=== PATIENT | male | born 1955 | race Caucasian/White ===

== ENCOUNTER → 2016-12-10 | Outpatient (REF) | payer OTHER ==
[~2016-12-10] MED LIST: AMLO10TA OR; IBUP600T PO; LOPR50TA OR; METOPROLOL TARTRATE PO; TRAM50TA2 PO
[2016-12-10 12:43] LABS: ALBUMIN 3.7 GM/DL (3.2-5.2); ANION GAP 7 MEQ/L (8-16); BLOOD UREA NITROGEN 7 MG/DL (7-18); CALCIUM LEVEL 9.1 MG/DL (8.5-10.1); CARBON DIOXIDE LEVEL 27 MEQ/L (21-32); CHLORIDE LEVEL 103 MEQ/L (98-107); CREATININE FOR GFR 0.75 MG/DL (0.70-1.30); GLOMERULAR FILTRATION RATE > 60.0 (>56); GLUCOSE, FASTING 95 MG/DL (70-105); PHOSPHORUS LEVEL 3.5 MG/DL (2.5-4.9); POTASSIUM SERUM 4.3 MEQ/L (3.5-5.1); SODIUM LEVEL 137 MEQ/L (136-145)
== END ==
LOC: M SFHCPLAZ 09:50
PROVIDERS: ATTEND Family Medicine
DX: R29.90 Unspecified symptoms and signs involving the nervous system (principal)

== ENCOUNTER → 2016-12-11 | Outpatient (CLI) | payer OTHER ==
--- NOTE | 2016-12-11 12:01 | REP ---
MR BRAIN WITHOUT CONTRAST: HISTORY: Facial droop. COMPARISON: CT 02/12/2016. Scattered punctate areas of increased signal intensity on T2-weighted images are present in the periventricular and subcortical white matter. This represents small vessel ischemic disease. There is no intraparenchymal hemorrhage, infarct, mass, or midline shift. The ventricular system and cortical sulci are dilated, consistent with mild volume loss. There is no extracerebral collection. The sinuses are clear. 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 IMPRESSION: 1. Minimal small vessel ischemic disease. 2. Mild volume loss. Signed by Jw Brambila MD 12/11/2016 12:05 P
== END ==
LOC: M RAD 09:37
PROVIDERS: ATTEND Family Medicine
DX: I67.82 Cerebral ischemia (principal); G31.9 Degenerative disease of nervous system, unspecified; R42 Dizziness and giddiness; R48.1 Agnosia; Z87.820 Personal history of traumatic brain injury

== ENCOUNTER → 2017-04-01 | Outpatient (CLI) | payer OTHER ==
[~2017-04-01] MED LIST changes: +ALBU17IN INH; +AMLO5TAB2 PO; +ASPI1TAB PO; +ATOR80TA59 PO; +CETI10TA PO; +GABA-283 PO; +LISI-538 PO; +MECL12.575 PO; +MELO7.5T7 PO; +MIRA33504 PO; +SING10TA32 PO; +ZONI25CA2 PO
== END ==
LOC: M WUC 12:45
PROVIDERS: ATTEND Family Medicine
DX: Z13.1 Encounter for screening for diabetes mellitus (principal)

== ENCOUNTER → 2017-05-12 | Outpatient (CLI) | payer OTHER ==
[~2017-05-12] MED LIST changes: +ISOVUE-370 76% 100ML VIAL (Q9967) As Ordered ONE
--- NOTE | 2017-05-12 16:52 | REP ---
CT ANGIOGRAM OF ABDOMINAL AORTA AND BILATERAL LOWER EXTREMITIES: CT angiogram abdominal aorta and bilateral lower extremities are performed following the intravenous administration of 100 mL of Isovue-370. Sagittal, coronal and 3-D reconstruction images are performed. Mild interstitial fibrotic changes are seen in the visualized lung bases. There are a few liver cysts present There appears to be a any cyst in the lower pole of the right kidney. There is no hydronephrosis. There is no adenopathy. There is no free air or free fluid. There is mild sigmoid diverticulosis. There is no pelvic mass seen. Moderate diffuse atherosclerotic calcifications are seen of the abdominal aorta. There is mild fusiform aneurysmal dilatation of the distal abdominal aorta with a maximum AP diameter of 3.5 cm. There is mild crescentic thrombus anteriorly in the aneurysm. There is mild narrowing at the origin of all of the mesenteric arteries but no significant narrowing greater than 50%. There is mild to moderate narrowing at the origin of the left renal artery. There is also mild narrowing of the origin of the right renal artery. There are bilateral common iliac stents present. There is patent flow through the right common iliac stent. Moderate narrowing is seen at the origin of the right internal iliac artery. There is moderate calcification along the wall of the right external iliac artery with mild diffuse narrowing. The right common femoral artery demonstrates posterior calcified plaque with mild stenosis. Right profunda is patent. Right superficial femoral artery demonstrates mild diffuse narrowing. Moderate calcific plaque in the mid right superficial femoral artery causes fairly long segment of moderate stenosis. There is mild narrowing at the distal end of the superficial femoral artery and there is mild diffuse narrowing of the right popliteal artery. There appears to be fairly high grade stenosis at the origin of the tibial peroneal trunk. There is mild to moderate stenosis at the origin of the right anterior tibial artery. Diffuse scattered plaquing is seen throughout the trifurcation vessels. There is diffuse mild to moderate thinning of the anterior tibial artery which traverses into the right foot. There is moderate diffuse thinning of the peroneal artery which appears to terminate just above the ankle. The posterior tibial artery demonstrates scattered areas of moderate narrowing and appears to traverse into the left foot with two vessel runoff into the left foot. On the left there is moderate focal stenosis in the mid left common iliac artery caused by calcific plaque. There is moderate diffuse narrowing of the more distal common iliac artery. There is moderate stenosis at the origin of the left internal iliac artery. The left external iliac artery demonstrates mild diffuse plaquing and narrowing. The left common femoral artery demonstrates mild diffuse plaquing and narrowing. Left profunda demonstrates mild narrowing at its origin and is patent. Left superficial femoral artery demonstrates moderate stenosis at its origin. There is scattered atherosclerotic plaquing in the left superficial femoral artery with moderate stenosis in the proximal third focally, another focal stenosis in the mid third of moderate degree and two focal moderate stenoses in the distal third. There is moderate stenosis in the left popliteal artery. Tibial peroneal trunk is patent and mildly narrowed. The left anterior tibial artery demonstrates scattered plaquing and moderate areas of narrowing with diffuse thinning. That vessel does traverse into the left foot. The left peroneal artery demonstrates occlusion in the distal third of the calf with a collateral vessel reconstituting an occluded posterior tibial artery. That reconstituted posterior tibial artery is diffusely moderately thinned but does traverse into the left foot. There is two vessel run off into the left foot. IMPRESSION: Mild fusiform aneurysmal dilatation of the distal abdominal aorta, 3.5 cm in maximum diameter. Mild narrowing of the origin of the mesenteric arteries. Mild to moderate narrowing at the origin of the left renal artery and mild narrowing at the origin of the right renal artery. Bilateral common iliac stents. Mild to moderate stenosis of the right common femoral artery. There are mild to moderate stenoses in the right superficial femoral artery as discussed above. There is high grade stenosis of the right tibial peroneal trunk. There is two vessel runoff into the right foot. On the left there is moderate focal stenosis in the distal common iliac artery distal to the stent. There are multifocal stenoses in the left superficial femoral artery as discussed in detail above. There is focal stenosis in the left popliteal artery. Right posterior tibial artery is occluded proximally but is reconstituted by the peroneal artery. There is two vessel run off into the left foot. Signed by Conrad Luna MD 05/12/2017 05:25 P
== END ==
LOC: M RAD 12:51
PROVIDERS: ATTEND Surgery Vascular Surgery
DX: I70.213 Atherosclerosis of native arteries of extremities with intermittent claudication, bilateral legs (principal); Z95.5 Presence of coronary angioplasty implant and graft
CPT/HCPCS: 75635; Q9967

== ENCOUNTER → 2017-05-12 | Outpatient (CLI) | payer OTHER ==
[~2017-05-12] MED LIST changes: -ISOVUE-370 76% 100ML VIAL (Q9967) As Ordered ONE
--- NOTE | 2017-05-12 13:48 | PFTRPT ---
Tech: Guillermina SMITH RRT Age: 62 Sex: Male Race: Height: 67.00 Inches Weight: 207.00 Lbs BSA: 2.05 Diagnosis: Z87.898 PULMONARY FUNCTION REPORT ORDERING PROVIDER: wJ Kruger DO DATE OF SERVICE: 05/12/17 SPIROMETRY: Pre and post bronchodilator study of excellent technical quality. The forced vital capacity is normal. The FEV1 is out of proportion. The obstructive index is, therefore, reduced. FLOW VOLUME LOOP: The expiratory limb of the flow volume loop is consistent with airflow limitation. No significant bronchodilator response is identified. LUNG VOLUMES: The total lung capacity is mildly elevated. The residual volume is consistent with air trapping. DIFFUSION CAPACITY: The diffusion capacity is normal. HEMOGLOBIN: No hemoglobin is available for correction. AIRWAY MECHANICS: Airways resistance is mildly elevated with a concomitant decrease in airway conductance. IMPRESSION: Mild obstructive ventilatory impairment with underlying air trapping. No significant bronchodilator response. Please correlate clinically. MTDD
== END ==
LOC: M CARPUL 12:46
PROVIDERS: ATTEND Family Medicine
DX: R06.2 Wheezing (principal)

== ENCOUNTER → 2017-05-18 | Outpatient (CLI) | payer OTHER ==
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
== END ==
LOC: M PAIN 13:00
PROVIDERS: ATTEND Nurse Practitioner Family
DX: M54.2 Cervicalgia (principal); M79.1 Myalgia; I10 Essential (primary) hypertension; E78.5 Hyperlipidemia, unspecified; M19.90 Unspecified osteoarthritis, unspecified site; I73.9 Peripheral vascular disease, unspecified; F17.210 Nicotine dependence, cigarettes, uncomplicated; Z79.899 Other long term (current) drug therapy; Z79.82 Long term (current) use of aspirin

== ENCOUNTER → 2017-06-01 | Outpatient (CLI) | payer OTHER ==
--- NOTE | 2017-06-01 15:38 | REP ---
Three-phase bone scan of the ankles and feet. History: Left ankle pain. Question stress fracture. Technique: 22.0 mCi of technetium 99m MDP is injected and standard three-phase imaging of the feet and ankles is acquired. Scintigraphic findings: Anterior and posterior flow study shows mild hyperemia about the left ankle. Immediate blood pool images demonstrate asymmetric soft tissue uptake in and about the left ankle as well as in and about the right first MTP joint and to a lesser extent, the right midfoot. Delayed scan images demonstrate intensely increased uptake in the distal tibia and ankle joint region on the left as well as in the first MTP joint on the right. Mildly increased uptake is seen in the lateral midfoot on the right. Impression: There is a focus of increased uptake involving the left ankle on all three phases of the bone scan consistent with a traumatic or inflammatory or infectious lesion. The distribution of the uptake suggests arthropathy. Similarly, there is a somewhat less prominent focus of increased uptake on blood pool and delayed scan images in the right first MTP joint. Signed by Abbe Anderson MD 06/01/2017 03:45 P
== END ==
LOC: M RAD 09:31
PROVIDERS: ATTEND Orthopaedic Surgery
DX: R93.7 Abnormal findings on diagnostic imaging of other parts of musculoskeletal system (principal)

== ENCOUNTER 2017-06-14 10:44 | Outpatient (RCR) | payer OTHER ==
[~2017-06-14 10:44] MED LIST changes: -ALBU17IN INH; -AMLO5TAB2 PO; -ASPI1TAB PO; -ATOR80TA59 PO; -CETI10TA PO; -GABA-283 PO; -LISI-538 PO; -MECL12.575 PO; -MELO7.5T7 PO; -MIRA33504 PO; -SING10TA32 PO; -ZONI25CA2 PO
[2017-06-17] MEDS ORDERED: ALBU17IN INH (14:24)
[2017-06-17] MEDS ORDERED: LISI-538 PO (14:24)
[2017-06-17] MEDS ORDERED: MELO7.5T7 PO (14:24)
[2017-06-17] MEDS ORDERED: SING10TA32 PO (14:24)
[2017-06-17] MEDS ORDERED: GABA-283 PO (14:24)
[2017-06-17] MEDS ORDERED: MIRA33504 PO (14:24)
[2017-06-17] MEDS ORDERED: ZONI25CA2 PO (14:24)
[2017-06-17] MEDS ORDERED: MECL12.575 PO (14:24)
[2017-06-17] MEDS ORDERED: ATOR80TA59 PO (14:24)
[2017-06-17] MEDS ORDERED: ASPI1TAB PO (14:24)
[2017-06-17] MEDS ORDERED: AMLO5TAB2 PO (14:24)
[2017-06-17] MEDS ORDERED: CETI10TA PO (14:24)
== END 2017-06-19 ==
LOC: M PT 10:44
PROVIDERS: ATTEND Nurse Practitioner Family
DX: Z51.89 Encounter for other specified aftercare (principal); M54.2 Cervicalgia; M25.0 Hemarthrosis; M79.1 Myalgia

== ENCOUNTER 2017-06-18 08:45 | Outpatient (CLI) | payer OTHER ==
[~2017-06-18] VITALS: Ht 170.2 cm; Wt 95.7 kg
[~2017-06-18 08:45] MED LIST changes: +ALBU17IN INH; +AMLO5TAB2 PO; +ASPI1TAB PO; +ATOR80TA59 PO; +CETI10TA PO; +GABA-283 PO; +LISI-538 PO; +MECL12.575 PO; +MELO7.5T7 PO; +MIRA33504 PO; +SING10TA32 PO; +ZONI25CA2 PO
[2017-06-18] MEDS ORDERED: NS 1,000 ML IV ONE (09:00)
[2017-06-18] MEDS ORDERED: PROPOFOL 200 MG/20 ML VIAL As Ordered ONE (11:40)
[2017-06-18] MEDS ORDERED: LIDOCAINE 2% INJ 100 MG/5 ML SDV (FOR ANES.) As Ordered ONE (11:40)
--- NOTE | 2017-06-18 11:45 | ROOR ---
Patient Name: Orlando Payne Procedure Date: 06/18/2017 11:19 AM Date of : 1955 Age: 62 Room: [facility] Gender: Male Note Status: Finalized Procedure: Colonoscopy Indications: Screening for colorectal malignant neoplasm Providers: Perry GREY MD Referring MD: Miguel Angel Solomon MD Requesting Provider: Medicines: Monitored Anesthesia Care Complications: No immediate complications. Procedure: Pre-Anesthesia Assessment: - The heart rate, respiratory rate, oxygen saturations, blood pressure, adequacy of pulmonary ventilation, and response to care were monitored throughout the procedure. The Colonoscope was introduced through the anus and advanced to the cecum, identified by appendiceal orifice and ileocecal valve. The colonoscopy was performed without difficulty. The patient tolerated the procedure well. The quality of the bowel preparation was inadequate. Findings: The perianal and digital rectal examinations were normal. (EXAM: Complete, PREP: Suboptimal) A 5 mm polyp was found in the distal sigmoid colon. The polyp was pedunculated. The polyp was removed with a hot snare. Resection and retrieval were complete. To prevent bleeding after the polypectomy, one hemostatic clip was successfully placed. There was no bleeding at the end of the procedure. The exam was otherwise without abnormality. Impression: - (EXAM: Complete, PREP: Suboptimal) - One 5 mm polyp in the distal sigmoid colon, removed with a hot snare. Resected and retrieved. Clip was placed. - The examination was otherwise normal. Recommendation: - Repeat colonoscopy at the next available appointment because the bowel preparation was suboptimal. - My office will call you to reschedule the procedure. Perry Grey MD Perry GREY MD 06/18/2017 11:45:06 AM This report has been signed electronically. Number of Addenda: 0 Note Initiated On: 06/18/2017 11:19 AM Estimated Blood Loss: Estimated blood loss: none.
[2017-06-18 12:00] VITALS: BP 127/77
== END 2017-06-18 12:10 | disposition home or self-care (01) ==
LOC: M OPP 08:45
PROVIDERS: ATTEND Internal Medicine Gastroenterology
DX: Z12.11 Encounter for screening for malignant neoplasm of colon (principal); D12.5 Benign neoplasm of sigmoid colon; I10 Essential (primary) hypertension; E78.5 Hyperlipidemia, unspecified; I71.4 Abdominal aortic aneurysm, without rupture; I73.9 Peripheral vascular disease, unspecified; M19.90 Unspecified osteoarthritis, unspecified site; M54.2 Cervicalgia; G62.9 Polyneuropathy, unspecified; J44.9 Chronic obstructive pulmonary disease, unspecified; Z87.820 Personal history of traumatic brain injury; R42 Dizziness and giddiness; H54.62 Unqualified visual loss, left eye, normal vision right eye; Z95.828 Presence of other vascular implants and grafts; F17.210 Nicotine dependence, cigarettes, uncomplicated; Z79.82 Long term (current) use of aspirin; Z79.899 Other long term (current) drug therapy

== ENCOUNTER → 2017-07-12 | Outpatient (CLI) | payer OTHER ==
[~2017-07-12] MED LIST changes: +LIDOCAINE 2% INJ 100 MG/5 ML SDV (FOR ANES.) As Ordered ONE; +PROPOFOL 200 MG/20 ML VIAL As Ordered ONE
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
== END ==
LOC: M RAD 10:54
PROVIDERS: ATTEND Nurse Practitioner Family
DX: M50.20 Other cervical disc displacement, unspecified cervical region (principal)

== ENCOUNTER → 2017-08-27 | Outpatient (CLI) | payer OTHER ==
[~2017-08-27] MED LIST changes: -LIDOCAINE 2% INJ 100 MG/5 ML SDV (FOR ANES.) As Ordered ONE; -PROPOFOL 200 MG/20 ML VIAL As Ordered ONE
--- NOTE | 2017-08-27 17:08 | REP ---
CT of the left ankle: Comparison is a plain film study dated 06/29/2006. Axial images are acquired helical scanning and are reformatted sagittal and coronal projections. There are three orthopedic screws across the tibiotalar articulation. There is marked tibiotalar cortical irregularity accompanied by marked joint space narrowing. Findings are compatible with surgical arthrodesis. There is a transverse orthopedic screw across the distal fibula and into the distal tibia. There is focal atrophy of the distal shaft of the fibula. This may have been a bone graft donor site may represent an old healed fracture. There are no lytic, blastic or destructive skeletal changes to suggest osteoarthritis. The subtalar articulation is unremarkable. There are calcaneal and Achilles spurs. Signed by Conrad Flanagan MD 08/27/2017 05:00 P
== END ==
LOC: M RAD 15:48
PROVIDERS: ATTEND Orthopaedic Surgery
DX: M19.172 Post-traumatic osteoarthritis, left ankle and foot (principal); M77.32 Calcaneal spur, left foot

== ENCOUNTER → 2017-10-05 | Outpatient (CLI) | payer OTHER | LOC: M PAIN 14:30 | DX: M54.2 Cervicalgia (principal); M79.1 Myalgia; I10 Essential (primary) hypertension; E78.5 Hyperlipidemia, unspecified; F17.210 Nicotine dependence, cigarettes, uncomplicated; Z79.899 Other long term (current) drug therapy; Z79.891 Long term (current) use of opiate analgesic | CPT/HCPCS: G0463 ==

== ENCOUNTER 2017-10-22 13:51 | Emergency (ER) | payer OTHER ==
[2017-10-22 15:48] LABS: BASO % 0.5 % (0.0-1.0); EOS # 0.1 10^3/uL (0.0-0.50); EOS % 1.5 % (0.0-3.0); HEMATOCRIT 39.9 % (42.0-52.0); HEMOGLOBIN 14.1 g/dl (14.0-18.0); IMMATURE GRANULOCYTE % 0.1 % (0-0); LYMPH # 2.7 10^3/uL (1.5-4.5); MEAN CORPUSCULAR HEMOGLOBIN 33.2 pg (27.0-33.0); MEAN CORPUSCULAR HGB CONC 35.3 g/dl (32.0-36.5); MEAN CORPUSCULAR VOLUME 93.9 fl (80.0-96.0); MONO # 0.8 10^3/uL (0.0-0.8); MONO % 10.8 % (0.0-5.0); NEUTROPHILS # 3.9 10^3/uL (1.8-7.7); NEUTROPHILS % 51.1 % (36.0-66.0); PLATELET COUNT, AUTOMATED 304 10^3/uL (150-450); RED BLOOD COUNT 4.25 10^6/uL (4.30-6.10); RED CELL DISTRIBUTION WIDTH 12.9 % (11.5-14.5); WHITE BLOOD COUNT 7.6 10^3/uL (4.0-10.0)
[2017-10-22] MEDS: NS 1,000 ML IV (15:48)
[2017-10-22] MEDS: MORPHINE 4 MG/ML 1ML SYRINGE IV ×2 (15:48→19:50)
[2017-10-22 16:10] LABS: LACTIC ACID SEPSIS PROTOCOL 1.3 MMOL/L (0.4-2.0)
[2017-10-22 16:12] LABS: ALBUMIN/GLOBULIN RATIO 0.93 (1.00-1.93); ALKALINE PHOSPHATASE 107 U/L (45-117); ALT/SGPT 27 U/L (12-78); ANION GAP 10 MEQ/L (8-16); AST/SGOT 29 U/L (7-37); BILIRUBIN,DIRECT < 0.1 MG/DL (0.0-0.2); BILIRUBIN,TOTAL 0.3 MG/DL (0.2-1.0); BLOOD UREA NITROGEN 6 MG/DL (7-18); CALCIUM LEVEL 9.1 MG/DL (8.8-10.2); CARBON DIOXIDE LEVEL 23 MEQ/L (21-32); CHLORIDE LEVEL 98 MEQ/L (98-107); CREATININE FOR GFR 0.63 MG/DL (0.70-1.30); GLOMERULAR FILTRATION RATE > 60.0 (>49); GLUCOSE, FASTING 89 MG/DL (70-100); POTASSIUM SERUM 4.2 MEQ/L (3.5-5.1); SODIUM LEVEL 131 MEQ/L (136-145); TOTAL PROTEIN 8.3 GM/DL (6.4-8.2)
[2017-10-22] MEDS: PIPERACILLIN/TAZOBACTAM SOD 3.375 GM in APPROPRIATE DILUENT 1 EA IV (17:56)
== END 2017-10-22 19:55 | disposition short-term general hospital (02) ==
LOC: M ED 13:51
DX: L02.415 Cutaneous abscess of right lower limb (principal); T81.4XXA Infection following a procedure, initial encounter; Z79.899 Other long term (current) drug therapy; Z79.82 Long term (current) use of aspirin; Z87.891 Personal history of nicotine dependence
CPT/HCPCS: J2543

== ENCOUNTER → 2017-11-03 | Outpatient (REF) | payer OTHER ==
[2017-11-03 18:50] LABS: HEMATOCRIT 38.2 % (42.0-52.0); HEMOGLOBIN 12.8 g/dl (14.0-18.0); MEAN CORPUSCULAR HEMOGLOBIN 31.9 pg (27.0-33.0); MEAN CORPUSCULAR HGB CONC 33.5 g/dl (32.0-36.5); MEAN CORPUSCULAR VOLUME 95.3 fl (80.0-96.0); PLATELET COUNT, AUTOMATED 371 10^3/uL (150-450); RED BLOOD COUNT 4.01 10^6/uL (4.30-6.10); RED CELL DISTRIBUTION WIDTH 13.1 % (11.5-14.5); WHITE BLOOD COUNT 7.2 10^3/uL (4.0-10.0)
== END ==
LOC: M LAB REF 16:46
DX: L03.115 Cellulitis of right lower limb (principal); D64.9 Anemia, unspecified

== ENCOUNTER → 2017-12-10 | Outpatient (CLI) | payer OTHER | LOC: M PAIN 13:15 | DX: M54.2 Cervicalgia (principal); M79.1 Myalgia; M15.9 Polyosteoarthritis, unspecified; I10 Essential (primary) hypertension; E78.5 Hyperlipidemia, unspecified; I73.9 Peripheral vascular disease, unspecified; F17.210 Nicotine dependence, cigarettes, uncomplicated; Z79.82 Long term (current) use of aspirin; Z79.899 Other long term (current) drug therapy; Z87.820 Personal history of traumatic brain injury | CPT/HCPCS: G0463 ==

== ENCOUNTER 2017-12-22 10:14 | Outpatient (RCR) | payer OTHER | END 2018-01-17 | LOC: M PT 10:14 | DX: Z51.89 Encounter for other specified aftercare (principal); M17.0 Bilateral primary osteoarthritis of knee | CPT/HCPCS: 97110 ==

== ENCOUNTER → 2018-01-07 | Outpatient (CLI) | payer OTHER | LOC: M PAIN 13:45 | DX: G89.29 Other chronic pain (principal); M54.2 Cervicalgia; M79.1 Myalgia; M15.9 Polyosteoarthritis, unspecified; I10 Essential (primary) hypertension; E78.5 Hyperlipidemia, unspecified; I73.9 Peripheral vascular disease, unspecified; J44.9 Chronic obstructive pulmonary disease, unspecified; F17.210 Nicotine dependence, cigarettes, uncomplicated; Z79.82 Long term (current) use of aspirin; Z79.899 Other long term (current) drug therapy | CPT/HCPCS: G0463 ==

== ENCOUNTER → 2018-01-25 | Outpatient (REF) | payer OTHER ==
[2018-01-25 11:48] LABS: HEMATOCRIT 40.7 % (42.0-52.0); HEMOGLOBIN 13.8 g/dl (13.5-17.5); MEAN CORPUSCULAR HEMOGLOBIN 31.5 pg (27.0-33.0); MEAN CORPUSCULAR HGB CONC 33.9 g/dl (32.0-36.5); MEAN CORPUSCULAR VOLUME 92.9 fl (80.0-96.0); PLATELET COUNT, AUTOMATED 333 10^3/uL (150-450); RED BLOOD COUNT 4.38 10^6/uL (4.30-6.10); RED CELL DISTRIBUTION WIDTH 13.8 % (11.5-14.5)
[2018-01-25 12:32] LABS: ANION GAP 8 MEQ/L (8-16); BLOOD UREA NITROGEN 12 MG/DL (7-18); CALCIUM LEVEL 9.5 MG/DL (8.8-10.2); CARBON DIOXIDE LEVEL 25 MEQ/L (21-32); CHLORIDE LEVEL 101 MEQ/L (98-107); CREATININE FOR GFR 0.73 MG/DL (0.70-1.30); GLOMERULAR FILTRATION RATE > 60.0 (>49); GLUCOSE, FASTING 82 MG/DL (70-100); POTASSIUM SERUM 4.7 MEQ/L (3.5-5.1); SODIUM LEVEL 134 MEQ/L (136-145)
== END ==
LOC: M SFHCPLAZ 09:40
DX: Z01.818 Encounter for other preprocedural examination (principal)

== ENCOUNTER 2018-03-09 23:51 | Emergency (ER) | payer OTHER | END 2018-03-10 02:06 | disposition home or self-care (01) | LOC: M ED 23:51 | DX: M79.605 Pain in left leg (principal); F10.120 Alcohol abuse with intoxication, uncomplicated; R05 Cough; I10 Essential (primary) hypertension; E78.9 Disorder of lipoprotein metabolism, unspecified; J44.9 Chronic obstructive pulmonary disease, unspecified; M54.5 Low back pain; F17.210 Nicotine dependence, cigarettes, uncomplicated; Z79.899 Other long term (current) drug therapy; Z79.82 Long term (current) use of aspirin | CPT/HCPCS: 93971 ==

== ENCOUNTER → 2018-04-04 | Outpatient (CLI) | payer OTHER | LOC: M PAIN 13:00 | DX: M54.2 Cervicalgia (principal); M79.1 Myalgia; M15.9 Polyosteoarthritis, unspecified; I10 Essential (primary) hypertension; E78.5 Hyperlipidemia, unspecified; J44.9 Chronic obstructive pulmonary disease, unspecified; Z79.82 Long term (current) use of aspirin; Z79.891 Long term (current) use of opiate analgesic; Z79.899 Other long term (current) drug therapy; Z87.820 Personal history of traumatic brain injury; Z86.79 Personal history of other diseases of the circulatory system; Z87.891 Personal history of nicotine dependence | CPT/HCPCS: G0463 ==

== ENCOUNTER → 2018-05-18 | Outpatient (CLI) | payer OTHER | LOC: M PAIN 09:45 | DX: M54.2 Cervicalgia (principal); M19.071 Primary osteoarthritis, right ankle and foot; M79.2 Neuralgia and neuritis, unspecified; I10 Essential (primary) hypertension; E78.5 Hyperlipidemia, unspecified; J44.9 Chronic obstructive pulmonary disease, unspecified; F17.200 Nicotine dependence, unspecified, uncomplicated; Z79.82 Long term (current) use of aspirin; Z79.899 Other long term (current) drug therapy; Z87.820 Personal history of traumatic brain injury; Z86.79 Personal history of other diseases of the circulatory system | CPT/HCPCS: G0463 ==

== ENCOUNTER → 2018-06-17 | Outpatient (CLI) | payer OTHER | LOC: M PAIN 11:00 | DX: M54.2 Cervicalgia (principal); M19.071 Primary osteoarthritis, right ankle and foot; M79.2 Neuralgia and neuritis, unspecified; I10 Essential (primary) hypertension; E78.5 Hyperlipidemia, unspecified; J44.9 Chronic obstructive pulmonary disease, unspecified; Z79.51 Long term (current) use of inhaled steroids; Z79.82 Long term (current) use of aspirin; Z79.891 Long term (current) use of opiate analgesic; Z79.899 Other long term (current) drug therapy; Z87.820 Personal history of traumatic brain injury; Z86.79 Personal history of other diseases of the circulatory system; Z87.891 Personal history of nicotine dependence | CPT/HCPCS: G0463 ==

== ENCOUNTER → 2018-07-29 | Outpatient (CLI) | payer OTHER | LOC: M PAIN 13:15 | DX: M54.2 Cervicalgia (principal); M19.071 Primary osteoarthritis, right ankle and foot; M79.2 Neuralgia and neuritis, unspecified; I10 Essential (primary) hypertension; E78.2 Mixed hyperlipidemia; I73.9 Peripheral vascular disease, unspecified; J44.9 Chronic obstructive pulmonary disease, unspecified; Z87.891 Personal history of nicotine dependence; Z79.891 Long term (current) use of opiate analgesic; Z79.899 Other long term (current) drug therapy | CPT/HCPCS: G0463 ==

== ENCOUNTER → 2018-11-07 | Outpatient (REF) | payer OTHER ==
[~2018-11-07] MED LIST changes: -AMLO5TAB2 PO; +AMLO5TAB6 PO; -GABA-283 PO; +GABA-845 PO
[2018-11-07 16:29] LABS: APPEARANCE, URINE CLEAR (CLEAR); BACTERIA, URINE AUTO NEGATIVE (NEGATIVE); BILIRUBIN, URINE AUTO NEGATIVE (NEGATIVE); BLOOD, URINE BLOOD NEGATIVE (NEGATIVE); COLOR, URINE YELLOW (YELLOW); GLUCOSE, URINE (UA) AUTO 1+ mg/dL (NEGATIVE); KETONE, URINE AUTO NEGATIVE (NEGATIVE); LEUKOCYTE ESTERASE, URINE AUTO TRACE (NEGATIVE); MUCUS, URINE SMALL (NEGATIVE); NITRITE, URINE AUTO NEGATIVE (NEGATIVE); PROTEIN, URINE AUTO NEGATIVE (NEGATIVE); RBC, URINE AUTO 2 /HPF (0-3); SPECIFIC GRAVITY URINE AUTO 1.015 (1.002-1.035); SQUAMOUS EPITHELIAL CELL UR AU 0 /HPF (0-6); UROBILINOGEN, URINE AUTO 0.2 mg/dL (0.0-2.0); WBC, URINE AUTO 7 /HPF (0-3)
== END ==
LOC: M SFHCPLAZ 13:26
PROVIDERS: ATTEND Family Medicine
DX: R39.15 Urgency of urination (principal)

== ENCOUNTER → 2018-12-01 | Outpatient (CLI) | payer OTHER ==
--- NOTE | 2018-12-18 00:12 | ECWPNPC ---
PATIENT NAME: LAUREEN MARTINEZ : 1955 GENDER: MALE VISIT DATE: 12/01/2018 DISCHARGE DATE: 12/01/18 1506 VISIT LOCKED DATE TIME: PHYSICIAN: LUKE LEE RESOURCE: LUKE LEE REASON FOR APPOINTMENT 1. KNEE/ANKLE HISTORY OF PRESENT ILLNESS HISTORY OF PRESENT ILLNESS: HERE FOR F/U OF CHRONIC GENERALIZED JOINT PAIN.CURRENTLY USING OXYCODONE 5MG Q6H PRN FOR SEVERE PAIN AND FEELS IT IS INEFFECTIVE ANYMORE.HAS BEEN ON THIS FOR SEVERAL YEARS.DISCUSSED MEDICATON OPTIONS.RATING PAIN VAS 8/10. PAIN THE PATIENT DESCRIBES THE PAIN... FALL RISK SCREENING: SCREENING : NO FALLS IN THE PAST YEAR. CURRENT MEDICATIONS TAKING GABAPENTIN 400 MG CAPSULE 1 CAPSULE ORALLY TWICE DAILY TAKING MOBIC 7.5 MG TABLET 1 TABLET ORALLY ONCE A DAY NEEDED TAKING AMLODIPINE BESYLATE 5 MG TABLET TAKE ONE TABLET BY MOUTH EVERY DAY DAILY TAKING MECLIZINE HCL 12.5 MG TABLET 1 TABLET NEEDED ORALLY ONCE A DAY PRN TAKING ATROPINE SULFATE 1 % SOLUTION INSTILL ONE DROP FOUR TIMES A DAY IN THE LEFT EYE OPHTHALMIC DIRECTED TAKING ARCAPTA NEOHALER 75 MCG CAPSULE 1 CAPSULE INHALATION ONCE A DAY TAKING PREDNISOLONE ACETATE 1 % SUSPENSION 1 DROP INTO AFFECTED EYE OPHTHALMIC TWICE A DAY TAKING CETIRIZINE HCL 10 MG TABLET 1 TABLET ORALLY ONCE DAILY NEEDED TAKING MONTELUKAST SODIUM 10 MG TABLET 1 TABLET IN THE EVENING ORALLY ONCE A DAY TAKING ZONISAMIDE 25 MG CAPSULE 2 CAPSULES ORALLY TWICE A DAY, NOTES: ONLY TAKES 2 CAPS AT HS TAKING ATORVASTATIN CALCIUM 80 MG TABLET TAKE ONE TABLET BY MOUTH EVERY DAY TAKING ASPIRIN 81 81 MG TABLET CHEWABLE 1 TABLET ORALLY ONCE A DAY TAKING LYRICA 225 MG CAPSULE 1 CAPSULE ORALLY TWICE A DAY MDD=2 TAKING CAPSAICIN 0.075 % CREAM 1 APPLICATION TO AFFECTED AREA EXTERNALLY THREE TIMES A DAY, NOTES: NONE RECENT TAKING DULOXETINE HCL 60 MG CAPSULE DELAYED RELEASE PARTICLES 1 CAPSULE ORALLY ONCE A DAY TAKING OXYCODONE HCL 5 MG TABLET 1 TABLET NEEDED ORALLY EVERY 6 HRS PRN PAIN MDD=4 TAKING LISINOPRIL 40 MG TABLET 1 TABLET ORALLY ONCE A DAY TAKING CLOBETASOL PROPIONATE 0.05 % CREAM 1 APPLICATION TO AFFECTED AREA EXTERNALLY TWICE A DAY, NOTES: NONE RECENT TAKING TRIAMCINOLONE ACETONIDE 0.5 % OINTMENT 1 APPLICATION TO BACK EXTERNALLY TWICE A DAY TO EARS AND BACK DISCONTINUED ASPIRIN ADULT LOW STRENGTH 81 MG TABLET DELAYED RELEASE TAKE ONE TABLET BY MOUTH EVERY DAY , NOTES: DUPLICATE MEDICATION LIST REVIEWED AND RECONCILED WITH THE PATIENT PAST MEDICAL HISTORY PATIENT REPORTS TRAUMATIC BRAIN INJURY 2013 HYPERTENSION, BP GOAL 130/80 HYPERLIPIDEMIA PERIPHERAL VASCULAR DISEASE COPD NICOTINE ADDICTION OSTEOARTHRITIS KNEE AND ANKLE PAIN BILATERAL NECK PAIN MYALGIA AAA USE OF OPIATES FOR THERAPEUTIC PURPOSES ATOPIC DERMATITIS BILATERAL CARPAL TUNNEL SYNDROME ALLERGIES N.K.D.A. SURGICAL HISTORY LEFT ANKLE FRACTURE REQUIRED SURGICAL REPAIR 2010 LEFT 5TH DIGIT REPAIR NUMEROUS SURGERIES ON LEFT EYE BILAT ILIAC STENTING FOR PVD BILAT KNEE ARTHROSCOPY COLONOSCOPY BYPASS GRAFT R CALF 09/2017 BYPASS GRAFT INFECTION R CALF 10/22/2017 LEFT ANKLE FUSION 2017 RIGHT CARPAL TUNNEL REPAIR 08/2018 FAMILY HISTORY FATHER: 76 YRS, BROKEN HEART ALSO HAD 2 FL'S, DIAGNOSED WITH HEART DISEASE MOTHER: 76 YRS, UNKNOWN SIBLINGS: ALIVE, BROTHERS [place], HEART DISEASE DAUGHTER(S): ALIVE 2 BROTHER(S) , 2 SISTER(S) - HEALTHY. 2DAUGHTER(S) - HEALTHY. SOCIAL HISTORY GENERAL: TOBACCO USE ARE YOU A:FORMER SMOKER QUIT WITH [facility] HOW LONG HAS IT BEEN SINCE YOU LAST SMOKED?3-6 MONTHS LUNG CANCER SCREENING SMOKING STATUS:CURRENT SMOKER BMI CARE GOAL FOLLOW-UP ABOVE NORMAL BMI FOLLOW-UPDIETARY NEEDS EDUCATION ALCOHOL SCREENING DID YOU HAVE A DRINK CONTAINING ALCOHOL IN THE PAST YEAR?YES HOW OFTEN DID YOU HAVE SIX OR MORE DRINKS ON ONE OCCASION IN THE PAST YEAR?NEVER (0 POINTS) HOW MANY DRINKS DID YOU HAVE ON A TYPICAL DAY WHEN YOU WERE DRINKING IN THE PAST YEAR?3 OR 4 (1 POINT) HOW OFTEN DID YOU HAVE A DRINK CONTAINING ALCOHOL IN THE PAST YEAR?TWO TO THREE TIMES PER WEEK (3 POINTS) POINTS4 INTERPRETATIONPOSITIVE RECREATIONAL DRUG USE DRUG USE?NO CAFFEINE CAFFEINE USE?YES HOW OFTEN AND HOW MUCH? TWO SODA, COFFEE SOME TIMES HIV / HEP-C SCREENING HIV TEST OFFERED TO PATIENT:YES DATE OFFERED:12/23/2016 TEST ACCEPTED:NO HEP-C TEST OFFERED TO PATIENT:YES DATE OFFERED:12/23/2016 REASON:PATIENT DECLINED TEST ACCEPTED:NO REASON:PATIENT DECLINED MU-ISM [id number] GNOSTICISM LANGUAGE LANGUAGES SPOKEN:URDU LEARNING BARRIERS / SPECIAL NEEDS CHANGE FROM LAST VISIT?NO BARRIERS TO LEARNING?NO HEARING IMPAIRED?NO VISION IMPAIRED?YES COGNITIVELY IMPAIRED?NO :CORRECTIVE LENSES READINESS TO LEARN?YES LEARNING PREFERENCES?NO LEARNING CAPABILITIES PRESENT?YES EMOTIONAL BARRIERS?NO SPECIAL DEVICES?NO ORDER RUNNER NEEDED?NO DOMESTIC VIOLENCE DO YOU FEEL SAFE IN YOUR ENVIRONMENT?YES OCCUPATION: RETIRED. DIET: REGULAR. PAIN CLINIC PFS, CLERGY, PUBLIC HEALTH REFERRALS HAS THE PATIENT BEEN EDUCATED REGARDING HIS/HER PLAN OF CARE?YES HAS THE PATIENT BEEN EDUCATED REGARDING PAIN, THE RISK FOR PAIN, THE IMPORTANCE OF EFFECTIVE PAIN MANAGEMENT, AND THE PAIN ASSESSMENT PROCESS?YES ADVANCE DIRECTIVE ADVANCE DIRECTIVE DISCUSSED WITH PATIENT:YES 12/01/18 PT DOES NOT HAVE ANY ADVANCED DIRECTIVES AND HE DECLINES INFORMATION ON HCP AT THIS TIME. AD HOSPITALIZATION/MAJOR DIAGNOSTIC PROCEDURE SURGERY RELATED REVIEW OF SYSTEMS REVIEWED BY: PROVIDER: LUKE CUNNINGHAM . CONSTITUTIONAL: ANY CHANGE IN YOUR MEDICAL CONDITION? NO . CHILLS NO . FEVER NO . INFECTION: DO YOU HAVE NEW INFECTIONS? NO . DO YOU HAVE HISTORY OF MRSA? NO . MUSCULOSKELETAL: ANY NEW PATTERNS OF PAIN OR NUMBNESS? NO . GASTROENTEROLOGY: ANY NEW CHANGE IN BOWEL CONTROL? NO . GENITOURINARY: ANY NEW CHANGE IN BLADDER CONTROL? NO . IS THERE A CHANCE YOU COULD BE ? NO . HEMATOLOGY/LYMPH: DO YOU TAKE ANY BLOOD THINNERS? (FOR EXAMPLE- COUMADIN, PLAVIX, AGGRENOX, PLATEL, PRADAXA, OR XARELTO) NO . WHEN WAS YOUR LAST DOSE? DATE: TIME: . NEUROLOGY: HAVE YOU FALLEN IN THE PAST 12 MONTHS? YES, SEVERAL TIMES DUE TO VERTIGO--NO INJURY . ANY NEW EXTREMITY NUMBNESS OR WEAKNESS? NO . CARDIOLOGY: DO YOU HAVE A PACEMAKER OR DEFIBRILLATOR? NO . RESPIRATORY: HAVE YOU BEEN SICK IN THE PAST WEEK? NO . FEVER NO . FLU LIKE SYMPTOMS? NO . COUGH NO . INTEGUMENTARY: DO YOU HAVE ANY RASHES OR OPEN SORES? NO . ALLERGIC/IMMUNO: ARE YOU ALLERGIC TO IV DYE? NO . ANY NEW ALLERGIES? NO . PSYCHIATRIC: DO YOU HAVE THOUGHTS OF HURTING YOURSELF OR SOMEONE ELSE? NO . ARE YOU ABUSED, NEGLECTED, OR IN AN UNSAFE ENVIRONMENT? NO . ENDOCRINOLOGY: ARE YOU DIABETIC? NO . OTHER: DO YOU NEED ANY PRESCRIPTIONS? YES . IF YES, PLEASE LIST: OXYCODONE . ANY NEW PROBLEMS WITH YOUR MEDICATIONS? NO . WHEN DID YOU LAST EAT? ____ . WHEN DID YOU LAST DRINK? ____ . WHAT DID YOU LAST DRINK? ____ . NAME OF PERSON DRIVING YOU HOME? ____ . DO YOU HAVE ANY OTHER QUESTIONS OR CONCERNS HAD FLU VACCINE APPROX. 1 MONTH AGO . VITAL SIGNS WT 214.8 LBS, HT 67 IN, BMI 33.64 INDEX, BP 150/80 MM HG, HR 88 /MIN, RR 18 /MIN, TEMP 98.6 F, OXYGEN SAT % 95%, SAFE IN ENV? (Y/N) Y, NA INITIALS AW 1351, REVIEWED BY: AD. EXAMINATION GENERAL EXAMINATION: GENERAL APPEARANCE:AWAKE,ALERT ,PLEAASANT . PSYCHAFFECT NORMAL . LUNGS:LUNG BARBOZA ARE CLEAR TO AUSCULTATION BILATERALLY. GOOD MOVEMENT OF AIR . HEART:S1, S2 IN A REGULAR RATE AND RHYTHM. NO SIGNIFICANT MURMURS, RUBS OR GALLOPS NOTED . ASSESSMENTS OSTEOARTHRITIS OF MULTIPLE JOINTS, UNSPECIFIED OSTEOARTHRITIS TYPE - M15.9 (PRIMARY) USE OF OPIATES FOR THERAPEUTIC PURPOSES - Z79.891 TREATMENT OSTEOARTHRITIS OF MULTIPLE JOINTS, UNSPECIFIED OSTEOARTHRITIS TYPE CONTINUE MOBIC TABLET, 7.5 MG, 1 TABLET, ORALLY, ONCE A DAY NEEDED CONTINUE LYRICA CAPSULE, 225 MG, 1 CAPSULE, ORALLY, TWICE A DAY MDD=2 STOP OXYCODONE HCL TABLET, 5 MG, 1 TABLET NEEDED, ORALLY, EVERY 6 HRS PRN PAIN MDD=4 START NORCO TABLET, 10-325 MG, 1 TABLET NEEDED, ORALLY, EVERY 6 HRS MDD4, 30 DAY(S), 120, REFILLS 0 NOTES: ISTOP REGISTRY REVIEWED AND DEMONSTRATES COMPLLIANCE. (REF # ) BRINGS IN MEDICATIONS WHICH IS APPROPRIATE FOR WHAT WAS DISPENSED. RECENT URINE TOXICOLOGY REVIEWED. NO UNAUTHORIZED MEDICATIONS. NO ILLICIT SUBSTANCES AND PRESCRIBED MEDICATIONS WERE PRESENT. [facility] NARCOTIC AGREEMENT WAS REVIEWED AND SIGNED TODAY BY THE PATIENT. SEE ATTACHED DOCUMENT FOR FULL DETAILS; SPECIFIC ISSUES WERE REVIEWED: 1) KEEP PAIN MEDS IN THEIR ORIGINAL BOTTLES AND ANY WEEKLY PLANNERS ARE TO BE BROUGHT TO THE PAIN CENTER AT EVERY VISIT. 2) THE PATIENT IS NOT TO INCREASE DOSING OR TIMING OF THEIR PAIN MEDICATION WITHOUT SPECIFIC DIRECTION OF THEIR PAIN CENTERPROVIDER (NOT ER OR OTHER PROVIDERS). 3) ALL PAIN MEDS ARE TO BE KEPT SECURED, IN A LOCKED BOX. 4) NO PAIN MEDS ARE TO BE SHARED WITH ANY OTHER PERSON FOR ANY REASON. 5) NO PAIN MEDS MAY BE TAKEN FROM ANY FRIENDS OR RELATIVES FOR ANY REASON 6) NO MEDS OR SUBSTANCES WHICH ARE NOT LEGAL ARE TO BE USED- NO MARIJUANA, NO COCAINE, AMPHETAMINES, HEROIN, OR OTHERS ARE EVER TO BE USED. 7)URINE TESTING IS DONE TO ACCOUNT FOR MEDS AND SUBSTANCES BEING TAKEN AND WILL BE DONE RANDOMLY., RISKS AND BENEFITS OF NARCOTIC/OPIOD MEDICATIONS WERE REVIEWED WITH PATIENT - THIS INCLUDES BUT IS NOT LIMITED TO RISK OF DEPENDANCE/DEVELOPMENT OF ADDICTION, MOOD DISTURBANCE AND DEPRESSION, OSTEOPOROSIS, HORMONAL AND LABIDAL CHANGES, RESPIRATORY DEPRESSION AND . PATIENT IS ADVISED NOT TO DRIVE OR DRINK ALCOHOL WHILE ON THESE MEDICATIONS. PROCEDURE CODES FA211 ESTABILISHED PATIENT [facility] CHARGE DISPOSITION & COMMUNICATION FOLLOW UP 25 D ELECTRONICALLY SIGNED BY MARISA ORANTES ON 12/16/2018 AT 01:13 PM EDT DISCLAIMER : THIS IS A VISIT SUMMARY EXTRACTED FROM THE [employer] CHART. IT IS NOT A COPY OF THE [employer] PROGRESS NOTE. RUSSELL
== END ==
LOC: M PAIN 13:45
PROVIDERS: ATTEND Nurse Practitioner Family
DX: M15.9 Polyosteoarthritis, unspecified (principal); G89.29 Other chronic pain; I10 Essential (primary) hypertension; E78.5 Hyperlipidemia, unspecified; J44.9 Chronic obstructive pulmonary disease, unspecified; Z79.82 Long term (current) use of aspirin; Z79.899 Other long term (current) drug therapy; Z87.820 Personal history of traumatic brain injury; Z86.79 Personal history of other diseases of the circulatory system; Z87.891 Personal history of nicotine dependence

== ENCOUNTER → 2018-12-23 | Outpatient (REF) | payer OTHER ==
[~2018-12-23] MED LIST changes: -ASPI1TAB PO; +ASPI81TA26 PO
[2018-12-23 14:06] LABS: BLOOD UREA NITROGEN 8 MG/DL (7-18); CALCIUM LEVEL 8.9 MG/DL (8.8-10.2); CARBON DIOXIDE LEVEL 25 MEQ/L (21-32); CHLORIDE LEVEL 97 MEQ/L (98-107); GLOMERULAR FILTRATION RATE > 60.0 (>49); GLUCOSE, FASTING 87 MG/DL (70-100); POTASSIUM SERUM 4.1 MEQ/L (3.5-5.1); SODIUM LEVEL 133 MEQ/L (136-145)
== END ==
LOC: M SFHCPLAZ 10:53
PROVIDERS: ATTEND Family Medicine
DX: I10 Essential (primary) hypertension (principal)

== ENCOUNTER → 2018-12-23 | Outpatient (REF) | payer OTHER ==
[2018-12-23 13:45] LABS: HEMATOCRIT 39.5 % (42.0-52.0); HEMOGLOBIN 13.5 g/dl (13.5-17.5); MEAN CORPUSCULAR HEMOGLOBIN 32.9 pg (27.0-33.0); MEAN CORPUSCULAR HGB CONC 34.2 g/dl (32.0-36.5); MEAN CORPUSCULAR VOLUME 96.3 fl (80.0-96.0); PLATELET COUNT, AUTOMATED 188 10^3/uL (150-450); WHITE BLOOD COUNT 5.3 10^3/uL (4.0-10.0)
[2018-12-23 14:08] LABS: ALBUMIN 3.6 GM/DL (3.2-5.2); ALT/SGPT 66 U/L (12-78); BILIRUBIN,TOTAL 0.2 MG/DL (0.2-1.0); BLOOD UREA NITROGEN 8 MG/DL (7-18); CALCIUM LEVEL 8.7 MG/DL (8.8-10.2); CARBON DIOXIDE LEVEL 26 MEQ/L (21-32); CHLORIDE LEVEL 97 MEQ/L (98-107); CHOLESTEROL LEVEL 161 MG/DL (<200); CHOLESTEROL RISK RATIO 3.354 (<5); CREATININE FOR GFR 0.51 MG/DL (0.70-1.30); GLOMERULAR FILTRATION RATE > 60.0 (>49); GLUCOSE, FASTING 85 MG/DL (70-100); HDL CHOLESTEROL 48 MG/DL (>40); LDL CHOLESTEROL 76 MG/DL (<100); NON-HDL-C 113 MG/DL; POTASSIUM SERUM 4.1 MEQ/L (3.5-5.1); SODIUM LEVEL 133 MEQ/L (136-145); TOTAL PROTEIN 7.3 GM/DL (6.4-8.2); TRIGLYCERIDES LEVEL 186 MG/DL (<150)
== END ==
LOC: M LABDRAWP 10:57
PROVIDERS: ATTEND Physician Assistant
DX: I10 Essential (primary) hypertension (principal)

== ENCOUNTER → 2018-12-26 | Outpatient (CLI) | payer OTHER ==
--- NOTE | 2018-12-28 00:33 | ECWPNPC ---
PATIENT NAME: LAUREEN MARTINEZ : 1955 GENDER: MALE VISIT DATE: 12/26/2018 DISCHARGE DATE: 12/26/18920 VISIT LOCKED DATE TIME: PHYSICIAN: ROSA BROUSSARD RESOURCE: ROSA BROUSSARD REASON FOR APPOINTMENT 1. 28 D PER LB HISTORY OF PRESENT ILLNESS HISTORY OF PRESENT ILLNESS: PAIN THE PATIENT DESCRIBES THE PAINDURING THE LAST MONTH SEVERITY - PAIN SCORE OF7/10 LOCATIONSCERVICAL, LOWER BACK, RIGHT LEG, LEFT LEG 63 YR OLD MALE WITH CHRONIC PAIN IN THE CERVICAL AND LUMBAR SPINE , BOTH KNEES AND BOTH ANKLES. HE SAYS THE NORCO IS HELPING WITH HIS CHRONIC PAIN. HE IS UNDER CARE OF [facility] FOR BILATERAL KNEE PAIN.PAIN SCORE TODAY 7/10. FALL RISK SCREENING: SCREENING :NO FALLS REPORTED IN THE LAST YEAR CURRENT MEDICATIONS TAKING GABAPENTIN 400 MG CAPSULE 1 CAPSULE ORALLY TWICE DAILY TAKING MECLIZINE HCL 12.5 MG TABLET 1 TABLET NEEDED ORALLY ONCE A DAY PRN TAKING ATROPINE SULFATE 1 % SOLUTION INSTILL ONE DROP FOUR TIMES A DAY IN THE LEFT EYE OPHTHALMIC DIRECTED TAKING ARCAPTA NEOHALER 75 MCG CAPSULE 1 CAPSULE INHALATION ONCE A DAY TAKING PREDNISOLONE ACETATE 1 % SUSPENSION 1 DROP INTO AFFECTED EYE OPHTHALMIC TWICE A DAY TAKING MONTELUKAST SODIUM 10 MG TABLET 1 TABLET IN THE EVENING ORALLY ONCE A DAY TAKING ZONISAMIDE 25 MG CAPSULE 2 CAPSULES ORALLY TWICE A DAY, NOTES: ONLY TAKES 2 CAPS AT HS TAKING ATORVASTATIN CALCIUM 80 MG TABLET TAKE ONE TABLET BY MOUTH EVERY DAY TAKING ASPIRIN 81 81 MG TABLET CHEWABLE 1 TABLET ORALLY ONCE A DAY TAKING CAPSAICIN 0.075 % CREAM 1 APPLICATION TO AFFECTED AREA EXTERNALLY THREE TIMES A DAY, NOTES: NONE RECENT TAKING DULOXETINE HCL 60 MG CAPSULE DELAYED RELEASE PARTICLES 1 CAPSULE ORALLY ONCE A DAY TAKING LISINOPRIL 40 MG TABLET 1 TABLET ORALLY ONCE A DAY TAKING CLOBETASOL PROPIONATE 0.05 % CREAM 1 APPLICATION TO AFFECTED AREA EXTERNALLY TWICE A DAY, NOTES: NONE RECENT TAKING TRIAMCINOLONE ACETONIDE 0.5 % OINTMENT 1 APPLICATION TO BACK EXTERNALLY TWICE A DAY TO EARS AND BACK TAKING MOBIC 7.5 MG TABLET 1 TABLET ORALLY ONCE A DAY NEEDED TAKING LYRICA 225 MG CAPSULE 1 CAPSULE ORALLY TWICE A DAY MDD=2 TAKING NORCO 10-325 MG TABLET 1 TABLET NEEDED ORALLY EVERY 6 HRS MDD4 TAKING AMLODIPINE BESYLATE 5 MG TABLET TAKE ONE TABLET BY MOUTH EVERY DAY ORALLY DAILY TAKING CETIRIZINE HCL 10 MG TABLET 1 TABLET ORALLY ONCE DAILY NEEDED DISCONTINUED ASPIRIN 81 MG TABLET DELAYED RELEASE TAKE ONE TABLET BY MOUTH EVERY DAY ORALLY ONCE DAILY MEDICATION LIST REVIEWED AND RECONCILED WITH THE PATIENT PAST MEDICAL HISTORY PATIENT REPORTS TRAUMATIC BRAIN INJURY 2013 HYPERTENSION, BP GOAL 130/80 HYPERLIPIDEMIA PERIPHERAL VASCULAR DISEASE COPD NICOTINE ADDICTION OSTEOARTHRITIS KNEE AND ANKLE PAIN BILATERAL NECK PAIN MYALGIA AAA USE OF OPIATES FOR THERAPEUTIC PURPOSES ATOPIC DERMATITIS BILATERAL CARPAL TUNNEL SYNDROME ALLERGIES N.K.D.A. SURGICAL HISTORY LEFT ANKLE FRACTURE REQUIRED SURGICAL REPAIR 2010 LEFT 5TH DIGIT REPAIR NUMEROUS SURGERIES ON LEFT EYE BILAT ILIAC STENTING FOR PVD BILAT KNEE ARTHROSCOPY COLONOSCOPY BYPASS GRAFT R CALF 09/2017 BYPASS GRAFT INFECTION R CALF 10/22/2017 LEFT ANKLE FUSION 2017 RIGHT CARPAL TUNNEL REPAIR 08/2018 FAMILY HISTORY FATHER: 76 YRS, BROKEN HEART ALSO HAD 2 IL'S, DIAGNOSED WITH HEART DISEASE MOTHER: 76 YRS, UNKNOWN SIBLINGS: ALIVE, BROTHERS [place], HEART DISEASE DAUGHTER(S): ALIVE 2 BROTHER(S) , 2 SISTER(S) - HEALTHY. 2DAUGHTER(S) - HEALTHY. SOCIAL HISTORY GENERAL: TOBACCO USE ARE YOU A:FORMER SMOKER QUIT WITH [facility] HOW LONG HAS IT BEEN SINCE YOU LAST SMOKED?3-6 MONTHS LUNG CANCER SCREENING SMOKING STATUS:CURRENT SMOKER BMI CARE GOAL FOLLOW-UP ABOVE NORMAL BMI FOLLOW-UPDIETARY NEEDS EDUCATION ALCOHOL SCREENING DID YOU HAVE A DRINK CONTAINING ALCOHOL IN THE PAST YEAR?YES HOW OFTEN DID YOU HAVE SIX OR MORE DRINKS ON ONE OCCASION IN THE PAST YEAR?NEVER (0 POINTS) HOW MANY DRINKS DID YOU HAVE ON A TYPICAL DAY WHEN YOU WERE DRINKING IN THE PAST YEAR?3 OR 4 (1 POINT) HOW OFTEN DID YOU HAVE A DRINK CONTAINING ALCOHOL IN THE PAST YEAR?TWO TO THREE TIMES PER WEEK (3 POINTS) POINTS4 INTERPRETATIONPOSITIVE RECREATIONAL DRUG USE DRUG USE?NO CAFFEINE CAFFEINE USE?YES HOW OFTEN AND HOW MUCH? TWO SODA, COFFEE SOME TIMES HIV / HEP-C SCREENING HIV TEST OFFERED TO PATIENT:YES DATE OFFERED:12/23/2016 TEST ACCEPTED:NO HEP-C TEST OFFERED TO PATIENT:YES DATE OFFERED:12/23/2016 REASON:PATIENT DECLINED TEST ACCEPTED:NO REASON:PATIENT DECLINED PENTECOSTALISM [id number] CHURCH LANGUAGE LANGUAGES SPOKEN:[place] AND [place]ER LEARNING BARRIERS / SPECIAL NEEDS CHANGE FROM LAST VISIT?NO BARRIERS TO LEARNING?NO HEARING IMPAIRED?NO VISION IMPAIRED?YES COGNITIVELY IMPAIRED?NO :CORRECTIVE LENSES READINESS TO LEARN?YES LEARNING PREFERENCES?NO LEARNING CAPABILITIES PRESENT?YES EMOTIONAL BARRIERS?NO SPECIAL DEVICES?NO LOFT 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 DIET: REGULAR. PAIN CLINIC PFS, CLERGY, PUBLIC HEALTH REFERRALS HAS THE PATIENT BEEN EDUCATED REGARDING HIS/HER PLAN OF CARE?YES HAS THE PATIENT BEEN EDUCATED REGARDING PAIN, THE RISK FOR PAIN, THE IMPORTANCE OF EFFECTIVE PAIN MANAGEMENT, AND THE PAIN ASSESSMENT PROCESS?YES ADVANCE DIRECTIVE ADVANCE DIRECTIVE DISCUSSED WITH PATIENT:YES PT DOES NOT HAVE ANY ADVANCED DIRECTIVES AND HE DECLINES INFORMATION ON HCP AT THIS TIME. HOSPITALIZATION/MAJOR DIAGNOSTIC PROCEDURE SURGERY RELATED REVIEW OF SYSTEMS REVIEWED BY: PROVIDER: DARIA . CONSTITUTIONAL: ANY CHANGE IN YOUR MEDICAL CONDITION? NO . CHILLS NO . FEVER NO . INFECTION: DO YOU HAVE NEW INFECTIONS? NO . DO YOU HAVE HISTORY OF MRSA? NO . MUSCULOSKELETAL: ANY NEW PATTERNS OF PAIN OR NUMBNESS? NO . GASTROENTEROLOGY: ANY NEW CHANGE IN BOWEL CONTROL? NO . GENITOURINARY: ANY NEW CHANGE IN BLADDER CONTROL? NO . IS THERE A CHANCE YOU COULD BE ? NO . HEMATOLOGY/LYMPH: DO YOU TAKE ANY BLOOD THINNERS? (FOR EXAMPLE- COUMADIN, PLAVIX, AGGRENOX, PLATEL, PRADAXA, OR XARELTO) NO . WHEN WAS YOUR LAST DOSE? DATE: TIME: . NEUROLOGY: HAVE YOU FALLEN IN THE PAST 12 MONTHS? YES, [facility] DENIES MAJOR INJURIES . ANY NEW EXTREMITY NUMBNESS OR WEAKNESS? YES, BILAT LEG NUMBNESS SINCE SURGERY . CARDIOLOGY: DO YOU HAVE A PACEMAKER OR DEFIBRILLATOR? NO . RESPIRATORY: HAVE YOU BEEN SICK IN THE PAST WEEK? NO . FEVER NO . FLU LIKE SYMPTOMS? NO . COUGH NO . INTEGUMENTARY: DO YOU HAVE ANY RASHES OR OPEN SORES? YES, RASH ON BACK, CREAM APPLIED HELPS TEMPORARILY . ALLERGIC/IMMUNO: ARE YOU ALLERGIC TO IV DYE? NO . ANY NEW ALLERGIES? NO . PSYCHIATRIC: DO YOU HAVE THOUGHTS OF HURTING YOURSELF OR SOMEONE ELSE? NO . ARE YOU ABUSED, NEGLECTED, OR IN AN UNSAFE ENVIRONMENT? NO . ENDOCRINOLOGY: ARE YOU DIABETIC? NO . OTHER: DO YOU NEED ANY PRESCRIPTIONS? YES, HYDROCODONE, LYRICA . IF YES, PLEASE LIST: ____ . ANY NEW PROBLEMS WITH YOUR MEDICATIONS? NO . WHEN DID YOU LAST EAT? ____ . WHEN DID YOU LAST DRINK? ____ . WHAT DID YOU LAST DRINK? ____ . NAME OF PERSON DRIVING YOU HOME? ____ . DO YOU HAVE ANY OTHER QUESTIONS OR CONCERNS NO . VITAL SIGNS WT 224 LBS, HT 67 IN, BMI 35.08 INDEX, BP 139/77 MM HG, HR 75 /MIN, RR 16 /MIN, TEMP 97.5 F, OXYGEN SAT % 94, REVIEWED BY: EM. EXAMINATION GENERAL EXAMINATION: GENERAL APPEARANCE:NO ACUTE DISTRESS, WELL NOURISHED AND HYDRATED. PSYCHAPPROPRIATE MOOD AND AFFECT . NECK: FROM.TENDER TO PALAPTION TO UPPER TRAPEZIUS.. LUNGS:CLEAR TO AUSCULTATION BILATERALLY, NO WHEEZES, RHONCHI, RALES. HEART:NO MURMURS, REGULAR RATE AND RHYTHM. ASSESSMENTS PRIMARY OSTEOARTHRITIS OF RIGHT FOOT - M19.071 (PRIMARY) MYALGIA - M79.1 CERVICALGIA - M54.2 NEUROPATHY INVOLVING BOTH LOWER EXTREMITIES - G57.93 TREATMENT MYALGIA CONTINUE LYRICA CAPSULE, 225 MG, 1 CAPSULE, ORALLY, TWICE A DAY MDD=2, 30 DAYS, 60, REFILLS 0 CONTINUE NORCO TABLET, 10-325 MG, 1 TABLET NEEDED, ORALLY, EVERY 6 HRS MDD4, 30 DAYS, 120, REFILLS 0 CLINICAL NOTES: ISTOP REGISTRY REVIEWED AND DEMONSTRATES COMPLLIANCE. (REF # [id number] ) BRINGS IN MEDICATIONS WHICH IS APPROPRIATE FOR WHAT WAS DISPENSED. RECENT URINE TOXICOLOGY REVIEWED. NO UNAUTHORIZED MEDICATIONS. NO ILLICIT SUBSTANCES AND PRESCRIBED MEDICATIONS WERE PRESENT. , RISKS AND BENEFITS OF NARCOTIC/OPIOD MEDICATIONS WERE REVIEWED WITH PATIENT - THIS INCLUDES BUT IS NOT LIMITED TO RISK OF DEPENDANCE/DEVELOPMENT OF ADDICTION, MOOD DISTURBANCE AND DEPRESSION, OSTEOPOROSIS, HORMONAL AND LABIDAL CHANGES, RESPIRATORY DEPRESSION AND . PATIENT IS ADVISED NOT TO DRIVE OR DRINK ALCOHOL WHILE ON THESE MEDICATIONSURINE TOX TODAY. PROCEDURE CODES FA211 ESTABILISHED PATIENT [facility] CHARGE DISPOSITION & COMMUNICATION FOLLOW UP 3 MONTHS ELECTRONICALLY SIGNED BY MARISA SHERIDAN ON 12/27/2018 AT 08:23 AM EDT DISCLAIMER : THIS IS A VISIT SUMMARY EXTRACTED FROM THE [employer] CHART. IT IS NOT A COPY OF THE [employer] PROGRESS NOTE. RUSSELL
== END ==
LOC: M PAIN 08:30
PROVIDERS: ATTEND Nurse Practitioner Family
DX: M19.071 Primary osteoarthritis, right ankle and foot (principal); M79.18 Myalgia, other site; M54.2 Cervicalgia; G57.93 Unspecified mononeuropathy of bilateral lower limbs; Z87.820 Personal history of traumatic brain injury; I10 Essential (primary) hypertension; E78.5 Hyperlipidemia, unspecified; J44.9 Chronic obstructive pulmonary disease, unspecified; G56.02 Carpal tunnel syndrome, left upper limb; Z87.891 Personal history of nicotine dependence; Z79.82 Long term (current) use of aspirin; Z79.899 Other long term (current) drug therapy

== ENCOUNTER → 2019-02-27 | Outpatient (REF) | payer OTHER | LOC: M SFHCPLAZ 11:00 | PROVIDERS: ATTEND Family Medicine | DX: L91.8 Other hypertrophic disorders of the skin (principal) ==

== ENCOUNTER → 2019-05-23 | Outpatient (CLI) | payer OTHER ==
--- NOTE | 2019-05-24 23:56 | ECWPNPC ---
PATIENT NAME: LAUREEN MARTINEZ : 1955 GENDER: MALE VISIT DATE: 05/23/2019 DISCHARGE DATE: 05/23/19 1148 VISIT LOCKED DATE TIME: PHYSICIAN: RANDY FORTE RESOURCE: RANDY FORTE REASON FOR APPOINTMENT 1. CHRONIC PAIN HISTORY OF PRESENT ILLNESS HISTORY OF PRESENT ILLNESS: 64 YEAR OLD MALE IN FOR CHRONIC PAIN FOLLOW UP. HE DOES HAVE COMPLAINTS OF KNEE, THUMB, AND ANKLE PAIN THAT HE IS BEING FOLLOWED BY [facility] FOR. HE FEELS HIS MEDICATIONS ARE WORKING WELL AND DENIES MED SIDE EFFECTS. HE RATES HIS PAIN AT A 8/10 CURRENTLY AND DESCRIBES IT SHARP AND CONSTANT. PAIN THE PATIENT DESCRIBES THE PAIN... FALL RISK SCREENING: SCREENING :NO FALLS REPORTED IN THE LAST YEAR CURRENT MEDICATIONS TAKING FLUTICASONE PROPIONATE 50 MCG/ACT SUSPENSION 1 SPRAY IN EACH NOSTRIL NASALLY BID TAKING CLOBETASOL PROPIONATE 0.05 % CREAM 1 APPLICATION TO AFFECTED AREA EXTERNALLY TWICE A DAY, NOTES: NONE RECENT TAKING ATROPINE SULFATE 1 % SOLUTION INSTILL ONE DROP FOUR TIMES A DAY IN THE LEFT EYE OPHTHALMIC DIRECTED TAKING PREDNISOLONE ACETATE 1 % SUSPENSION 1 DROP INTO AFFECTED EYE OPHTHALMIC TWICE A DAY TAKING ZONISAMIDE 25 MG CAPSULE 2 CAPSULES ORALLY TWICE A DAY, NOTES: ONLY TAKES 2 CAPS AT HS TAKING CAPSAICIN 0.075 % CREAM 1 APPLICATION TO AFFECTED AREA EXTERNALLY THREE TIMES A DAY, NOTES: NONE RECENT TAKING DULOXETINE HCL 60 MG CAPSULE DELAYED RELEASE PARTICLES 1 CAPSULE ORALLY ONCE A DAY TAKING TRIAMCINOLONE ACETONIDE 0.5 % OINTMENT 1 APPLICATION TO BACK EXTERNALLY TWICE A DAY TO EARS AND BACK TAKING LYRICA 225 MG CAPSULE 1 CAPSULE ORALLY TWICE A DAY MDD=2 TAKING NORCO 10-325 MG TABLET 1 TABLET NEEDED ORALLY EVERY 6 HRS MDD4 TAKING GABAPENTIN 400 MG CAPSULE 1 CAPSULE ORALLY TWICE DAILY TAKING MOBIC 7.5 MG TABLET 1 TABLET ORALLY ONCE A DAY NEEDED TAKING MECLIZINE HCL 12.5 MG TABLET 1 TABLET NEEDED ORALLY ONCE A DAY PRN TAKING CETIRIZINE HCL 10 MG TABLET 1 TABLET ORALLY ONCE DAILY NEEDED TAKING LISINOPRIL 20 MG TABLET 1 TABLET ORALLY ONCE A DAY TAKING ATORVASTATIN CALCIUM 80 MG TABLET TAKE ONE TABLET BY MOUTH EVERY DAY ORALLY ONCE A DAY TAKING MONTELUKAST SODIUM 10 MG TABLET 1 TABLET IN THE EVENING ORALLY ONCE A DAY TAKING ASPIRIN 81 81 MG TABLET CHEWABLE 1 TABLET ORALLY ONCE A DAY TAKING ATROVENT HFA 17 MCG/ACT AEROSOL SOLUTION 2 PUFFS INHALATION FOUR TIMES A DAY, NOTES: STOP ARCAPTA NOT-TAKING ZYRTEC ALLERGY 10 MG CAPSULE 1 CAPSULE ORALLY ONCE A DAY MEDICATION LIST REVIEWED AND RECONCILED WITH THE PATIENT PAST MEDICAL HISTORY PATIENT REPORTS TRAUMATIC BRAIN INJURY 2013 HYPERTENSION, BP GOAL 130/80 HYPERLIPIDEMIA PERIPHERAL VASCULAR DISEASE COPD NICOTINE ADDICTION OSTEOARTHRITIS KNEE AND ANKLE PAIN BILATERAL NECK PAIN MYALGIA AAA USE OF OPIATES FOR THERAPEUTIC PURPOSES ATOPIC DERMATITIS BILATERAL CARPAL TUNNEL SYNDROME ALLERGIES N.K.D.A. SURGICAL HISTORY LEFT ANKLE FRACTURE REQUIRED SURGICAL REPAIR 2010 LEFT 5TH DIGIT REPAIR NUMEROUS SURGERIES ON LEFT EYE BILAT ILIAC STENTING FOR PVD BILAT KNEE ARTHROSCOPY COLONOSCOPY BYPASS GRAFT R CALF 09/2017 BYPASS GRAFT INFECTION R CALF 10/22/2017 LEFT ANKLE FUSION 2017 RIGHT CARPAL TUNNEL REPAIR 08/2018 FAMILY HISTORY FATHER: 76 YRS, BROKEN HEART ALSO HAD 2 MT'S, DIAGNOSED WITH HEART DISEASE MOTHER: 76 YRS, UNKNOWN SIBLINGS: ALIVE, BROTHERS MT, HEART DISEASE DAUGHTER(S): ALIVE 2 BROTHER(S) , 2 SISTER(S) - HEALTHY. 2DAUGHTER(S) - HEALTHY. SOCIAL HISTORY GENERAL: TOBACCO USE ARE YOU A:FORMER SMOKER QUIT WITH [facility] HOW LONG HAS IT BEEN SINCE YOU LAST SMOKED?6-12 MONTHS HIV / HEP-C SCREENING HIV TEST OFFERED TO PATIENT:YES DATE OFFERED:12/23/2016 TEST ACCEPTED:NO HEP-C TEST OFFERED TO PATIENT:YES DATE OFFERED:12/23/2016 REASON:PATIENT DECLINED TEST ACCEPTED:NO REASON:PATIENT DECLINED DIET: REGULAR. LANGUAGE LANGUAGES SPOKEN:IRISH DOMESTIC VIOLENCE DO YOU FEEL SAFE IN YOUR ENVIRONMENT?YES BMI CARE GOAL FOLLOW-UP ABOVE NORMAL BMI FOLLOW-UPDIETARY NEEDS EDUCATION RECREATIONAL DRUG USE DRUG USE?NO LEARNING BARRIERS / SPECIAL NEEDS CHANGE FROM LAST VISIT?NO BARRIERS TO LEARNING?NO HEARING IMPAIRED?NO VISION IMPAIRED?YES COGNITIVELY IMPAIRED?NO :CORRECTIVE LENSES READINESS TO LEARN?YES LEARNING PREFERENCES?NO LEARNING CAPABILITIES PRESENT?YES EMOTIONAL BARRIERS?NO SPECIAL DEVICES?NO OXIDE FURNACE TENDER NEEDED?NO LUNG CANCER SCREENING SMOKING STATUS:CURRENT SMOKER PAIN CLINIC PFS, CLERGY, PUBLIC HEALTH REFERRALS HAS THE PATIENT BEEN EDUCATED REGARDING HIS/HER PLAN OF CARE?YES HAS THE PATIENT BEEN EDUCATED REGARDING PAIN, THE RISK FOR PAIN, THE IMPORTANCE OF EFFECTIVE PAIN MANAGEMENT, AND THE PAIN ASSESSMENT PROCESS?YES LATEX QUESTIONNAIRE LATEX ALLERGY : HAVE YOU EVER DEVELOPED ANY TYPE OF REACTION AFTER HANDLING LATEX PRODUCTS SUCH RUBBER GLOVES, CONDOMS, DIAPHRAGMS, BALLOONS, SOCKS, OR UNDERWEAR?NO LATEX ALLERGY : HAVE YOU EVER DEVELOPED ANY TYPE OF REACTION DURING OR AFTER DENTAL APPOINTMENT, VAGINAL/RECTAL EXAMINATION, SURGICAL PROCEDURE, OR ANY OTHER EXPOSURE?NO DATE ASKED : 02/27/2019 LATEX RISK : HAVE YOU EVER HAD ANY DIFFICULTY BREATHING OR HIVES AFTER EATING OR HANDLING ANY FRUITS, OR VEGETABLES; SUCH KIWI, BANANAS, STONE FRUITS, OR CHESTNUTSNO LATEX RISK : DO YOU HAVE A PREVIOUS PERSONAL HISTORY OF MORE THAN NINE SURGERIES, SPINA BIFIDA, OR REPEATED CATHERIZATIONS? YES - PLEASE INDICATE : > 9 SURGERIES LATEX RISK : ARE YOU FREQUENTLY EXPOSED TO LATEX PRODUCTS IN YOUR OCCUPATION?NO CAFFEINE CAFFEINE USE?YES HOW OFTEN AND HOW MUCH? TWO SODA, COFFEE SOME TIMES ADVANCE DIRECTIVE ADVANCE DIRECTIVE DISCUSSED WITH PATIENT:YES PT DOES NOT HAVE ANY ADVANCED DIRECTIVES AND HE DECLINES INFORMATION ON HCP AT THIS TIME. UATSDIN [id number] CONGREGATIONAL ALCOHOL SCREENING DID YOU HAVE A DRINK CONTAINING ALCOHOL IN THE PAST YEAR?YES HOW OFTEN DID YOU HAVE SIX OR MORE DRINKS ON ONE OCCASION IN THE PAST YEAR?NEVER (0 POINTS) HOW MANY DRINKS DID YOU HAVE ON A TYPICAL DAY WHEN YOU WERE DRINKING IN THE PAST YEAR?3 OR 4 (1 POINT) HOW OFTEN DID YOU HAVE A DRINK CONTAINING ALCOHOL IN THE PAST YEAR?TWO TO THREE TIMES PER WEEK (3 POINTS) POINTS4 INTERPRETATIONPOSITIVE OCCUPATION: RETIRED. REVIEWED WITH PATIENT 05/23/19 1114 NLJ. HOSPITALIZATION/MAJOR DIAGNOSTIC PROCEDURE SURGERY RELATED REVIEW OF SYSTEMS REVIEWED BY: PROVIDER: ALEXANDRA WAKEFIELD . CONSTITUTIONAL: ANY CHANGE IN YOUR MEDICAL CONDITION? YES- STATES HE HAS PROBLEMS WITH LEFT THUMB, STATES HE WILL BE SEEING [facility] . CHILLS NO . FEVER NO . INFECTION: DO YOU HAVE NEW INFECTIONS? NO . DO YOU HAVE HISTORY OF MRSA? NO . MUSCULOSKELETAL: ANY NEW PATTERNS OF PAIN OR NUMBNESS? YES- STATES HE HAS INCREASED PAIN IN BILATERAL KNEES, STATES HE IS SEEING [facility] FOR PAIN IN KNEES . GASTROENTEROLOGY: ANY NEW CHANGE IN BOWEL CONTROL? NO . GENITOURINARY: ANY NEW CHANGE IN BLADDER CONTROL? NO . IS THERE A CHANCE YOU COULD BE ? NO . HEMATOLOGY/LYMPH: DO YOU TAKE ANY BLOOD THINNERS? (FOR EXAMPLE- COUMADIN, PLAVIX, AGGRENOX, PLATEL, PRADAXA, OR XARELTO) NO . WHEN WAS YOUR LAST DOSE? DATE: TIME: . NEUROLOGY: HAVE YOU FALLEN IN THE PAST 12 MONTHS? YES- STATES HE HAS FREQUENT FALLS REALTED TO KNEE PAIN BILATERALLY . ANY NEW EXTREMITY NUMBNESS OR WEAKNESS? NO . CARDIOLOGY: DO YOU HAVE A PACEMAKER OR DEFIBRILLATOR? NO . RESPIRATORY: HAVE YOU BEEN SICK IN THE PAST WEEK? NO . FEVER NO . FLU LIKE SYMPTOMS? NO . COUGH NO . INTEGUMENTARY: DO YOU HAVE ANY RASHES OR OPEN SORES? NO . ALLERGIC/IMMUNO: ARE YOU ALLERGIC TO IV DYE? NO . ANY NEW ALLERGIES? NO . PSYCHIATRIC: DO YOU HAVE THOUGHTS OF HURTING YOURSELF OR SOMEONE ELSE? NO . ARE YOU ABUSED, NEGLECTED, OR IN AN UNSAFE ENVIRONMENT? NO . ENDOCRINOLOGY: ARE YOU DIABETIC? NO . OTHER: DO YOU NEED ANY PRESCRIPTIONS? YES . IF YES, PLEASE LIST: ____HYDROCODONE AND LYRICA . ANY NEW PROBLEMS WITH YOUR MEDICATIONS? NO . WHEN DID YOU LAST EAT? ____ . WHEN DID YOU LAST DRINK? ____ . WHAT DID YOU LAST DRINK? ____ . NAME OF PERSON DRIVING YOU HOME? ____ . DO YOU HAVE ANY OTHER QUESTIONS OR CONCERNS NO . VITAL SIGNS WT 197.8 LBS, HT 67 IN, BMI 30.98 INDEX, BP 117/82 MM HG, HR 98 /MIN, RR 18 /MIN, TEMP 97.7 F, OXYGEN SAT % 96%, SAFE IN ENV? (Y/N) YES, NA INITIALS KS 11:06, REVIEWED BY: JEFFRY. EXAMINATION GENERAL EXAMINATION: GENERALNO ACUTE DISTRESS, WELL NOURISHED AND HYDRATED. PSYCHAPPROPRIATE MOOD AND AFFECT . LUNGS:BILATERAL WHEEZE NOTED. HEART:NO MURMURS, REGULAR RATE AND RHYTHM. ASSESSMENTS OSTEOARTHRITIS OF MULTIPLE JOINTS, UNSPECIFIED OSTEOARTHRITIS TYPE - M15.9 (PRIMARY) TREATMENT OSTEOARTHRITIS OF MULTIPLE JOINTS, UNSPECIFIED OSTEOARTHRITIS TYPE CLINICAL NOTES: 64 YEAR OLD MALE IN FOR CHRONIC PAIN FOLLOW UP. GIVEN PRESENTING SYMPTOMS AND RESULTS OF PHYSICAL EXAMINATION RECOMMENDED CONTINUATION FO CURRENT MEDICATION REGIMEN WITH FOLLOW UP IN 3 MONTHS. PATIENT HAS EXPRESSED UNDERSTANDING OF AND WAS IN AGREEMENT WITH TREATMENT PLAN. GIVEN TIME TO ASK QUESTIONS AND EXPRESS CONCERNS. , ISTOP REGISTRY REVIEWED AND DEMONSTRATES COMPLLIANCE. (REF #[id number] ) BRINGS IN MEDICATIONS WHICH IS APPROPRIATE FOR WHAT WAS DISPENSED. RECENT URINE TOXICOLOGY REVIEWED. NO UNAUTHORIZED MEDICATIONS. NO ILLICIT SUBSTANCES AND PRESCRIBED MEDICATIONS WERE PRESENT. , RISKS AND BENEFITS OF NARCOTIC/OPIOD MEDICATIONS WERE REVIEWED WITH PATIENT - THIS INCLUDES BUT IS NOT LIMITED TO RISK OF DEPENDANCE/DEVELOPMENT OF ADDICTION, MOOD DISTURBANCE AND DEPRESSION, OSTEOPOROSIS, HORMONAL AND LABIDAL CHANGES, RESPIRATORY DEPRESSION AND . PATIENT IS ADVISED NOT TO DRIVE OR DRINK ALCOHOL WHILE ON THESE MEDICATIONS. PROCEDURE CODES FA211 ESTABILISHED PATIENT [facility] CHARGE DISPOSITION & COMMUNICATION FOLLOW UP 3 MONTHS (REASON: CHRONIC PAIN ) ELECTRONICALLY SIGNED BY MARISA BRYANT ON 05/24/2019 AT 12:22 PM EDT DISCLAIMER : THIS IS A VISIT SUMMARY EXTRACTED FROM THE [employer] CHART. IT IS NOT A COPY OF THE [employer] PROGRESS NOTE. RUSSELL
== END ==
LOC: M PAIN 11:00
PROVIDERS: ATTEND Family Medicine
DX: M15.9 Polyosteoarthritis, unspecified (principal); G89.29 Other chronic pain; Z87.820 Personal history of traumatic brain injury; I10 Essential (primary) hypertension; E78.5 Hyperlipidemia, unspecified; J44.9 Chronic obstructive pulmonary disease, unspecified; Z87.891 Personal history of nicotine dependence; Z79.82 Long term (current) use of aspirin; Z79.899 Other long term (current) drug therapy

== ENCOUNTER 2019-07-04 14:24 | Inpatient (IN) | payer OTHER ==
[~2019-07-04] VITALS: Ht 170.2 cm; Wt 97.1 kg
[2019-07-04] MEDS ORDERED: HYDR-4517 PO (14:40)
--- NOTE | 2019-07-04 15:16 | REP ---
CT brain: 07/04/2019. Indication: Head trauma. Comparison: MRI brain dated 12/11/2016. Technique: Unenhanced axial images of the brain were obtained from skull base to vertex. Findings: There is no acute intracranial hemorrhage, acute cortical infarction, mass effect, hydrocephalus or acute calvarial fracture. Volume loss is present. There is significant atherosclerotic disease involving the left V4 segment. Patchy areas of white matter hypoattenuation are noted most consistent with chronic small vessel disease. Left-sided phthisis bulbi is noted. Impression: No acute intracranial process. Volume loss and sequelae of chronic microangiopathic ischemic disease. Left-sided phthisis bulbi. Electronically Signed by Dilan Pollack DO 07/04/2019 03:08 P
--- NOTE | 2019-07-04 15:22 | REP ---
CT cervical spine: 07/04/2019. Indication: Cervical spine trauma. Comparison: MRI cervical spine dated 07/12/2017. Technique: Axial images of the cervical spine were obtained with sagittal and coronal reconstructions provided. Findings: There is no acute fracture, subluxation or dislocation. There is straightening of the cervical lordosis. Prevertebral soft tissues are unremarkable. There is no evidence of hemorrhage or additional post traumatic abnormalities within the spinal canal. Bilateral carotid atherosclerotic disease is present. The visualized lungs are clear. Impression: No acute post traumatic osseous injury of the cervical spine detected. Electronically Signed by Dilan Pollack DO 07/04/2019 03:13 P
[2019-07-04 15:29] LABS: HEMATOCRIT 43.9 % (42.0-52.0); HEMOGLOBIN 15.5 g/dl (13.5-17.5); MEAN CORPUSCULAR HEMOGLOBIN 34.8 pg (27.0-33.0); MEAN CORPUSCULAR HGB CONC 35.3 g/dl (32.0-36.5); MEAN CORPUSCULAR VOLUME 98.7 fl (80.0-96.0); RED BLOOD COUNT 4.45 10^6/uL (4.30-6.10); WHITE BLOOD COUNT 5.3 10^3/uL (4.0-10.0)
[2019-07-04 15:52] LABS: PLATELET COUNT, AUTOMATED 99 10^3/uL (150-450)
[2019-07-04 16:21] LABS: INR 0.98; PROTHROMBIN TIME 12.7 SECONDS (11.8-14.0)
[2019-07-04 16:22] LABS: PARTIAL THROMBOPLASTIN TIME 27.6 SECONDS (25.0-38.4)
[2019-07-04] MEDS ORDERED: LORazepam 2 MG/ML VIAL (J2060) IV STA (16:32)
[2019-07-04 16:36] LABS: ALBUMIN 3.9 GM/DL (3.2-5.2); ALT/SGPT 49 U/L (12-78); BILIRUBIN,TOTAL 0.8 MG/DL (0.2-1.0); BLOOD UREA NITROGEN 11 MG/DL (7-18); CALCIUM LEVEL 9.3 MG/DL (8.8-10.2); CARBON DIOXIDE LEVEL 28 MEQ/L (21-32); CHLORIDE LEVEL 102 MEQ/L (98-107); CREATININE FOR GFR 0.75 MG/DL (0.70-1.30); ETHYL ALCOHOL (ETHANOL) < 0.003 % (0.000-0.010); GLOMERULAR FILTRATION RATE > 60.0 (>49); GLUCOSE, FASTING 118 MG/DL (70-100); SODIUM LEVEL 137 MEQ/L (136-145); TOTAL PROTEIN 8.8 GM/DL (6.4-8.2)
[2019-07-04] MEDS ORDERED: NS 1,000 ML IV ONE (16:45)
[2019-07-04] MEDS ORDERED: ADACEL/BOOSTRIX VACCINE (DIPHTH/PERTUSS/ACELL/TETANUS)0.5ML SYR (90715) IM ONE (17:00)
[2019-07-04] MEDS ORDERED: LIDOCAINE W/EPINEPHRINE 1% 20ML VIAL SC ONE (17:30)
[2019-07-04] MEDS ORDERED: DERMABOND TOPICAL SKIN ADHESIVE TOP STA (19:37)
[2019-07-04] MEDS ORDERED: POTASSIUM CHLORIDE 10 MEQ SR TABLET PO ONE (20:00)
[2019-07-04] MEDS ORDERED: LYRI225C PO (20:31)
[2019-07-04] MEDS ORDERED: MELO7.5T35 PO (20:31)
[2019-07-04] MEDS ORDERED: VENTAER PO (20:31)
[2019-07-04 20:54] LABS: MAGNESIUM LEVEL 1.9 MG/DL (1.8-2.4)
[2019-07-04] MEDS ORDERED: IPRATROPIUM 0.5MG/ALBUTEROL 2.5MG INH SOL UD 3ML (DUONEB)(J7620) NEB PRN (21:15)
[2019-07-04] MEDS ORDERED: ALBUTEROL 90 MCG/ACT 8GM HFA INHALER INH PRN ×2 (21:30→22:47)
[2019-07-04] MEDS ORDERED: MECLIZINE 12.5 MG TAB PO PRN (21:30)
[2019-07-04] MEDS: LORazepam 2 MG TAB PO PRN (22:43)
[2019-07-04 22:45] VITALS: BP 168/94
[2019-07-04 22:48] VITALS: BP 168/94
[2019-07-04] MEDS: THIAMINE 100 MG TAB PO SCH (23:05)
[2019-07-04] MEDS: MAG SULF 1GM/100ML (MAG RUN) 1 GM in IV 1 EA IV SCH (23:06)
--- NOTE | 2019-07-04 23:36 | HPEPDOC ---
[facility] Medical History & Physical Date of Admission Jul 04, 2019 Date of Service: Jul 04, 2019 Attending Physician: ZOIE GIFFORD MD History and Physical CHIEF COMPLAINT: Fall with loss of consciousness HISTORY OF PRESENT ILLNESS: Orlando is a 64-year-old male with pertinent past medical history of hypertension, COPD, and aortic aneurysm, who presented to the emergency department on the afternoon of 07/04 via ambulance after a neighbor checked up on him around 11AM and called EMS. Patient states that on the evening of 07/03, he tried to get out of a chair at home while watching television and subsequently lost his balance, falling down and hitting the right side of his forehead on a wall. Patient reports that he "passed out for a couple minutes." When patient regained consciousness, he was unable to rise to his feet and walk. Patient then crawled to a nearby couch where he remained lying down until he was found by his neighbor. The patient reports using a wheelchair, I can, and crutches at various times to ambulate at home. He endorses a recent history of falls. In terms of recent medication changes, patient states he was prescribed a new inhaler one week ago but is unsure of the name. He says that it's been hard for him to ambulate to his medicine cabinet to retrieve his daily medications and, as a result, his recent use of meds has been inconsistent. He makes most of his meals, but says that he hasn't been eating as much lately. He denies any recent illness, recent travel, or recent sick contacts. When asked about alcohol use, patient reports averaging roughly 4-5 beers over a 4 day period, and that his last drink was 4 days ago. The ED summary report did state that patient was running around last night asking neighbors for beer after he ran out. Patient is unsure of the name of his primary care provider but knows that the provider is affiliated with [facility]. He also follows on a regular basis as outpatient with neurology (Dr. Soto) for chronic numbness and pain, and cardiology (Dr. Tello) for monitoring of his aortic aneurysm. In the emergency department, patient received a dose of IV Ativan, adhesive glue for a roughly 3 cm laceration on the right forehead, a Tdap vaccination, and 40 mEq of potassium chloride. Head CT imaging showed no acute intracranial process, and CT of the cervical spine without contrast showed no acute posttraumatic osseous injury of the C-spine. CBC showed thrombocytopenia, CMP showed hypo- kalemia with a mag level within normal limits, and only a very moderately elevated AST. Coagulation size were all within normal limits, and toxicology screen showed alcohol level less than 0.003. Patient was admitted to the progressive care unit under the medical management of the hospitalist team for continued observation and monitoring. 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 ED summary report states that patient ran out of beer on the evening of 07/03, and was subsequently running around asking neighbors if they had any. Illicit drug use: Denies FAMILY HISTORY: Father: [place] Siblings: [place] (brother) Unexpected deaths due to medical reasons: Father, after [place] ALLERGIES: Please see below. 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 RESPIRATORY: Endorses feeling short of breath, endorses chronic productive cough with yellow sputum; denies pleuritic chest pain or increased work of breathing GASTROINTESTINAL: Denies feeling nauseated, vomiting, diarrhea, or constipation. GENITOURINARY: Denies dysuria or hematuria. SKIN: Denies formication sensations or pruritus MUSCULOSKELETAL: Endorses chronic left ankle, and bilateral knee pain. NEUROLOGICAL: Endorses issues with short-term memory, endorses chronic bilateral hand and feet numbness. ENDOCRINE: Denies cold or heat intolerance HEMATOLOGIC/LYMPHATIC: Denies easy bleeding or bruising HOME MEDICATIONS: Please see below. PHYSICAL EXAMINATION: VITAL SIGNS: Temperature 98.3, (visualize the time of exam on monitoring) pulse 85, respiratory rate, 19, blood pressure, 166/104, pulse oximetry 97% % on room air. GENERAL APPEARANCE: man who appears older than stated age, malodorous with disheveled appearance. He is awake, alert and oriented 3. He is cooperative and responds appropriate to questions and commands. He is speaking in full sentences. HEENT: Roughly 3 cm laceration on right forehead with evidence of recent adhesi ve glue application to affected area. There is some yellow scaling on scalp and head hair appears oily and unkempt. The patient is wearing eyeglasses. The sclera of both eyes are injected. There appears to be some possibly yellow purulent material on eyelashes of left eye. There is no discernible pupil of left eye and the lens appears opacified. The right pupil is round and reactive to light and accommodation. There is some horizontal nystagmus with extraocular motion testing. There appear to be hearing loss in right ear. There is no palpable cervical or supraclavicular lymphadenopathy. Trachea is midline and neck is supple. CARDIOVASCULAR: Heart sounds are very distant and difficult to appreciate with noise of concurrent upper airway sounds/wheezes. There was no JVD. 2+ radial and dorsalis pedis pulses palpated bilaterally. LUNGS: There are audible wheezes/upper airway sounds detectable with regular hearing. There are diffuse wheezes bilaterally, both anteriorly and posteriorly. Cough was elicited on exam. There was no e to a egophony appreciated. Symmetric chest expansion, with no visualized use of accessory muscles or retractions. ABDOMEN: Obese with normal bowel sounds. Soft, nontender and nonpainful to palpation in all abdominal quadrants. Mustafa sign was negative and there was no hepatomegaly appreciated. There are no palpable masses appreciated. There is no tympany to percussion. MUSCULOSKELETAL: 5 out of 5 muscle strength testing upper extremities and lower extremities bilaterally EXTREMITIES: There is a roughly 6 inch scar from the medial side of the right knee moving distally. 2+ radial and dorsalis pedis pulses palpated bilaterally. SKIN: There appears to be a stage I/2 pressure ulcer over the gluteal cleft. There are petechia-appearing areas over bilateral forearms. NEUROLOGICAL: Patient is awake, alert and oriented 3. He struggled with retention of short-term memory when asked to recall 2 words at the end of the exam which were initially provided to him in the beginning. Tongue fasciculations and bilateral hand tremors were present. There was some ho rizontal nystagmus on extraocular motion testing. There was hearing loss of right ear with cranial nerve testing. PSYCHIATRIC: Appropriate mood, appropriate affect in the setting of disheveled appearance, suggesting poor personal care. LABORATORY DATA: Please see below. IMAGIN/15, head CT without contrast showed no acute intracranial process. There was volume loss and sequela of chronic microangiopathic ischemic disease. 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 07/04, cervical spine CT without contrast showed no acute posttraumatic osseous injury of the cervical spine. MICROBIOLOGY: Please see below. ASSESSMENT & PLAN: This is a 64-year-old obese male with pertinent past medical history of COPD, chronic hypertension, and aortic aneurysm, who presented to the emergency department via ambulance after a neighbor checked up on him and called EMS. Patient had fallen from his wheelchair on the evening of 07/03, hitting his right forehead on a wall and reporting a loss of consciousness for a few minutes. When patient regained consciousness. He was unable to stand and instead crawled to a nearby couch. He remain on the couch until he was found by the aforementioned neighbor the next morning. In the ED, imaging showed no acute intracranial process or acute cervical spine injury. Patient was hypokalemic and given 40 mEq potassium chloride. Patient was also given one IV dose of Ativan as he appeared to be in alcohol withdrawal with an alcohol tox screen less than 0.003. Adhesive glue was applied to right forehead laceration and he was given a tdap acceptation. Patient was admitted under the care of the hospitalist team to the progressive care unit with both scheduled and prn Ativan ordered, as well as thiamine, multivitamin and folic acid replacement. Patient was put on seizure and fall risk precautions. DuoNeb treatments, both prn and scheduled, were ordered as patient had diffuse wheezing and endorsed feeling short of breath with a history of COPD. Patient's home albuterol rescue inhaler was continued. #Acute alcohol withdrawal -PRN Ativan for CIWA score greater than 8 ordered -Scheduled prn Ativan for agitation and tremulousness ordered -Patient placed on seizure risk precautions, as well as fall risk precautions -Thiamine, folic acid, and multivitamin scheduled dosing ordered -Two, 1 g magnesium runs IV ordered; patient also received 40 mEq of potassium chloride in the ED for hypokalemia -Telemetry ordered -Scheduled CIWA checks ordered #COPD -Patient endorsed feeling short of breath on review of systems, with audible wheezes and upper airway sounds. Exam auscultation had diffuse wheezes. -DuoNeb treatments, both scheduled and prn, ordered -Patient's home inhalers held with the exception of his albuterol rescue inhaler -A portable chest x-ray was ordered to assess for any acute pulmonary processes in the setting of patient's diffuse wheezing and history of COPD #Chronic hypertension -Patient's home amlodipine and lisinopril continued -In the setting of acute alcohol withdrawal, it is expected patient's blood pressure will be elevated #Thrombocytopenia -Initial platelet count of 99,000 -This is likely secondary to patient's chronic alcohol abuse -Continue to monitor on repeat labs #Hypokalemia -Initial metabolic panel showed potassium of 3.0 -Patient received 40 mEq of potassium chloride in the ED -Patient also received two, 1 g magnesium sulfate IV runs #Pressure ulcer over gluteal cleft -Appears to be stage I/II on exam -water treatment specialist consult/evaluation placed #Recent history of falls -Patient placed on fall risk precautions -DVT prophylaxis with teds and sequentials #History of neuropathy and neuropathic pain -Patient's home gabapentin held in the setting of acute alcohol withdrawal and Ativan dosing #Active smoker -Patient reports smoking roughly 1 pack per day for many years -21 mg nicotine patch ordered -Smoking cessation counseling ordered #DVT prophylaxis: Due to patient's issues with ambulation and recent history of falls, prophylaxis was ordered in the form of teds and sequentials. I saw and evaluated the patient. Discussed with resident and agree with resident's findings and plan as documented in the resident's note Vital Signs Vital Signs Date Time Temp Pulse Resp B/P (MAP) Pulse Ox O2 Delivery O2 Flow Rate FiO2 07/04/19 22:48 91 168/94 07/04/19 22:45 98.3 20 95 07/04/19 18:23 Room Air Laboratory Data Labs 24H Laboratory Tests 2 07/04/19 15:19: Nucleated Red Blood Cells % (auto) 0.0, Immature Platelet Fraction 7.4 07/04/19 16:02: Prothrombin Time 12.7, Prothromb Time International Ratio 0.98, Activated Partial Thromboplast Time 27.6, Anion Gap 7L, Glomerular Filtration Rate > 60.0, Calcium Level 9.3, Magnesium Level 1.9, Total Bilirubin 0.8, Aspartate Amino Transf (AST/SGOT) 61H, Alanine Aminotransferase (ALT/SGPT) 49, Alkaline Phosphatase 92, Total Protein 8.8H, Albumin 3.9, Albumin/Globulin Ratio 0.80L, Ethyl Alcohol Level < 0.003 CBC/BMP Laboratory Tests 07/04/19 15:19 07/04/19 16:02 Home Medications Scheduled Aspirin (Aspirin EC) 81 Mg Tab, 81 MG PO DAILY Atorvastatin Calcium (Atorvastatin Calcium) 80 Mg Tab, 80 MG PO DAILY Cetirizine HCl (Cetirizine HCl) 10 Mg Tab, 10 MG PO DAILY Lisinopril (Lisinopril) 20 Mg Tab, 20 MG PO DAILY Meloxicam (Meloxicam) 7.5 Mg Tablet, 7.5 MG PO DAILY Montelukast Sodium (Singulair) 10 Mg Tab, 10 MG PO DAILY Pregabalin (Lyrica) 225 Mg Capsule, 225 MG PO BID Zonisamide (Zonisamide) 25 Mg Cap, 50 MG PO QHS Scheduled PRN Albuterol Sulfate (Ventolin Hfa) 18 Gm Hfa.aer.ad, 2 PUFF PO Q4H PRN for wheezing Hydrocodone/Acetaminophen (Hydrocodone-Acetamin 10-325 mg) 1 Each Tablet, 1 TAB PO QID PRN for pain Meclizine HCl (Meclizine HCl) 12.5 Mg Tab, 12.5 MG PO BID PRN for DIZZINESS Allergies Coded Allergies: No Known Allergies (Unverified , 07/04/19) A-FIB/CHADSVASC A-FIB History Current/History of A-Fib/PAF?: No Current PO Anticoag Therapy: No (teds and sequentials ordered) ELIZABETH BRAXTON PGY-1 Jul 04, 2019 23:36 ZOIE GIFFORD MD Jul 05, 2019 18:49
--- NOTE | 2019-07-04 23:45 | REPVR ---
PROCEDURE INFORMATION: Exam: XR Chest, 1 View Exam date and time: 07/04/2019 11:29 PM Clinical history: 64 years old, male; Other: (down below); Additional info: PT endorses SOB, has diffuse wheezes prod cough w/ h/o copd TECHNIQUE: Imaging protocol: XR of the chest Views: 1 view. COMPARISON: CR Chest, 1 view 02/12/2016 7:50 AM FINDINGS: Lungs: Degree of lung inflation is normal. No evidence of pulmonary edema. No focal consolidation or parenchymal lung mass. Pleural space: No pleural effusion or pneumothorax. Heart/Mediastinum: Cardiac silhouette appears normal. No adenopathy or hilar mass. Bones/joints: Osseous structures show no concerning abnormality. Remote healed right clavicle fracture is incidentally noted IMPRESSION: No acute or focal cardiopulmonary process. Electronically signed by: Daryl Donaldson On 07/04/2019 23:45:18 PM
[2019-07-05] VITALS (7 sets, daily range): BP systolic 131–150; BP diastolic 63–88
[2019-07-05] MEDS: IPRATROPIUM 0.5MG/ALBUTEROL 2.5MG INH SOL UD 3ML (DUONEB)(J7620) NEB SCH ×4 (00:03→19:47)
[2019-07-05] MEDS: MAG SULF 1GM/100ML (MAG RUN) 1 GM in IV 1 EA IV SCH (00:51)
[2019-07-05 05:46] LABS: INR 1.02; PROTHROMBIN TIME 13.1 SECONDS (11.8-14.0)
[2019-07-05 06:01] LABS: ALBUMIN 3.3 GM/DL (3.2-5.2); ALT/SGPT 55 U/L (12-78); BILIRUBIN,TOTAL 0.8 MG/DL (0.2-1.0); BLOOD UREA NITROGEN 11 MG/DL (7-18); CALCIUM LEVEL 8.4 MG/DL (8.8-10.2); CARBON DIOXIDE LEVEL 26 MEQ/L (21-32); CHLORIDE LEVEL 109 MEQ/L (98-107); CREATININE FOR GFR 0.52 MG/DL (0.70-1.30); GLOMERULAR FILTRATION RATE > 60.0 (>49); GLUCOSE, FASTING 101 MG/DL (70-100); MAGNESIUM LEVEL 2.6 MG/DL (1.8-2.4); SODIUM LEVEL 144 MEQ/L (136-145); TOTAL PROTEIN 7.9 GM/DL (6.4-8.2)
[2019-07-05] MEDS ORDERED: POTASSIUM CHLORIDE 10 MEQ SR TABLET PO ONE (08:00)
[2019-07-05] MEDS: THIAMINE 100 MG TAB PO SCH ×2 (08:10→20:05)
[2019-07-05] MEDS: MULTIVITAMINS/MINERALS THERAP 1 TAB PO SCH (08:10)
[2019-07-05] MEDS: CETIRIZINE (ZyrTEC) 10 MG TAB PO SCH (08:10)
[2019-07-05] MEDS: NICOTINE 21MG/24HR 1 EA TRANSDERMAL TD SCH (08:10)
[2019-07-05] MEDS: ASPIRIN 81 MG ENTERIC TAB PO SCH (08:10)
[2019-07-05] MEDS: FOLIC ACID 1 MG TAB PO SCH (08:10)
[2019-07-05] MEDS: ATORVASTATIN 20 MG TAB PO SCH (08:11)
[2019-07-05] MEDS: LISINOPRIL 20 MG TAB PO SCH (08:11)
[2019-07-05] MEDS ORDERED: MONTELUKAST 10 MG TAB PO SCH (09:00)
[2019-07-05 09:01] LABS: CPK CREATINE PHOSPHOKINASE 551 U/L (39-308)
--- NOTE | 2019-07-05 15:51 | IPNPDOC ---
Text Note Date of Service The patient was seen on 07/05/19. NOTE SUBJECTIVE: Mr. Payne was admitted with alcoholic encephalopathy. He now appears to be in alcohol withdrawal as he is quite tremulous. He has a greater complaint of lower extremity weakness. He also states that the sensation to his lower legs is not normal. OBJECTIVE: Please see vital signs below Physical exam: General: The patient is tremulous and diaphoretic HENT: The patient's neck is supple with no adenopathy or thyromegaly. He does have a closed laceration to his right forehead with no active bleeding, is not demonstrates scleral icterus, but does have scleral injection Cardiovascular: Mildly irregular rate and rhythm, otherwise normal S1 and S2 with no appreciable murmur Respiratory: Occasional coarse breath sounds, but otherwise good air movement Extremities: No visible acute lesions or edema, pedal pulses are palpable. Neuro: Patient is tremulous to all extremities and to his trunk ASSESSMENT/PLAN: 1. Alcohol dependency With alcoholic encephalopathy that is resolving and acute alcohol withdrawal. Patient is on Ativan per [facility] protocol. He has also been placed on seizure precautions. He is receiving thiamine, folic acid and multivitamin as well. We are monitoring his electrolytes and replenishing as needed. 2. Neuropathy. Patient states his ambulation is worsening because he cannot feel his feet or legs. Patient is on a neuropathic pain regimen. He is also expectant of evaluation by physical therapy for ambulation strategies. 3. Possible rhabdomyolysis. The patient does have an elevated CK of 551. The patient was down for sufficient time to have tissue damage. We will continue to monitor this. He continues with some IV hydration. 4. Hypokalemia. Patient continues to receive electrolyte replenishment. 6. Tobacco dependency. The patient is an active smoker. Patient has a nicotine patch. The patient has serial compression devices for DVT prophylaxis due to his thrombocytopenia--thrombocytopenia is felt to be secondary to his underlying chronic alcohol abuse and associated liver disease. Patient also demonstrates coagulopathy with an INR 1.02. VS,Fishbone, I+O VS, Fishbone, I+O Laboratory Tests 07/04/19 16:02 07/05/19 05:15 Vital Signs Date Time Temp Pulse Resp B/P (MAP) Pulse Ox O2 Delivery O2 Flow Rate FiO2 07/05/19 12:01 67 131/63 07/05/19 12:00 97.9 18 97 07/04/19 18:23 Room Air I&O- Last 24 Hours up to 6 AM 07/05/19 06:00 Intake Total 1000 ml Output Total 0 ml Balance 1000 ml STEPHANIE LEAL MD Jul 05, 2019 15:51
[2019-07-05] MEDS: NORCO, ANEXSIA 5/325MG TABLET (HYDROcodone/ACETAMINOPHEN) PO PRN ×2 (16:11→23:42)
[2019-07-05] MEDS: PREGABALIN 75 MG CAP(LYRICA) PO SCH (20:05)
[2019-07-05] MEDS: ZONISAMIDE 50 MG CAP (ZONEGRAN) PO SCH (20:05)
[2019-07-06] VITALS (9 sets, daily range): BP systolic 110–160; BP diastolic 65–94
[2019-07-06] MEDS: IPRATROPIUM 0.5MG/ALBUTEROL 2.5MG INH SOL UD 3ML (DUONEB)(J7620) NEB SCH ×4 (02:00→20:36)
[2019-07-06 05:45] LABS: HEMATOCRIT 39.6 % (42.0-52.0); MEAN CORPUSCULAR HEMOGLOBIN 33.9 pg (27.0-33.0); MEAN CORPUSCULAR HGB CONC 33.1 g/dl (32.0-36.5); MEAN CORPUSCULAR VOLUME 102.6 fl (80.0-96.0); RED BLOOD COUNT 3.86 10^6/uL (4.30-6.10); WHITE BLOOD COUNT 4.2 10^3/uL (4.0-10.0)
[2019-07-06 05:46] LABS: HEMOGLOBIN 13.1 g/dl (13.5-17.5); PLATELET COUNT, AUTOMATED 99 10^3/uL (150-450)
[2019-07-06 05:54] LABS: INR 1.01
[2019-07-06] MEDS: NORCO, ANEXSIA 5/325MG TABLET (HYDROcodone/ACETAMINOPHEN) PO PRN ×3 (06:06→23:40)
[2019-07-06 06:12] LABS: ALBUMIN 3.1 GM/DL (3.2-5.2); ALT/SGPT 48 U/L (12-78); BILIRUBIN,TOTAL 0.8 MG/DL (0.2-1.0); BLOOD UREA NITROGEN 12 MG/DL (7-18); CALCIUM LEVEL 8.4 MG/DL (8.8-10.2); CARBON DIOXIDE LEVEL 29 MEQ/L (21-32); CHLORIDE LEVEL 103 MEQ/L (98-107); CPK CREATINE PHOSPHOKINASE 274 U/L (39-308); CREATININE FOR GFR 0.68 MG/DL (0.70-1.30); GLOMERULAR FILTRATION RATE > 60.0 (>49); GLUCOSE, FASTING 133 MG/DL (70-100); POTASSIUM SERUM 2.9 MEQ/L (3.5-5.1); SODIUM LEVEL 135 MEQ/L (136-145); TOTAL PROTEIN 7.2 GM/DL (6.4-8.2)
[2019-07-06] MEDS ORDERED: POTASSIUM CHLORIDE 10 MEQ SR TABLET PO ONE (06:30)
[2019-07-06] MEDS: PREGABALIN 75 MG CAP(LYRICA) PO SCH ×2 (08:53→20:43)
[2019-07-06] MEDS: ASPIRIN 81 MG ENTERIC TAB PO SCH (08:53)
[2019-07-06] MEDS: LISINOPRIL 20 MG TAB PO SCH (08:53)
[2019-07-06] MEDS: ATORVASTATIN 20 MG TAB PO SCH (08:53)
[2019-07-06] MEDS: MELOXICAM (MOBIC) 7.5 MG TAB PO SCH (08:53)
[2019-07-06] MEDS: FOLIC ACID 1 MG TAB PO SCH (08:53)
[2019-07-06] MEDS: NICOTINE 21MG/24HR 1 EA TRANSDERMAL TD SCH (08:54)
[2019-07-06] MEDS: THIAMINE 100 MG TAB PO SCH ×2 (08:54→20:43)
[2019-07-06] MEDS: KCL 40MEQ in NS 1000ML 1,000 ML IV SCH ×2 (08:54→19:29)
[2019-07-06] MEDS: MULTIVITAMINS/MINERALS THERAP 1 TAB PO SCH (08:54)
[2019-07-06] MEDS: CETIRIZINE (ZyrTEC) 10 MG TAB PO SCH (08:54)
[2019-07-06] MEDS: LORazepam 2 MG TAB PO PRN (09:08)
[2019-07-06 10:18] LABS: POTASSIUM SERUM 2.9 MEQ/L (3.5-5.1)
--- NOTE | 2019-07-06 19:23 | IPNPDOC ---
Text Note Date of Service The patient was seen on 07/06/19. NOTE SUBJECTIVE: Patient continues visibly tremulous. He was admitted with alcoholic encephalopathy and currently has alcohol withdrawal. His greatest current complaint is of dizziness and pain. OBJECTIVE: Please see vital signs below Physical exam: General: The patient remains tremulous and diaphoretic HENT: The patient's neck is supple with no adenopathy or thyromegaly. 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 Alcohol dependency With alcoholic encephalopathy that is resolving and acute alcohol withdrawal. Patient remains on Ativan per [facility] protocol. He has also been placed on seizure precautions. He is receiving thiamine, folic acid and multivitamin as well. We are monitoring his electrolytes and replenishing as needed. 2. Neuropathy. Patient states his ambulation is worsening because he cannot feel his feet or legs. Patient is on a neuropathic pain regimen. He is also expectant of evaluation by physical therapy for ambulation strategies. He may require rehabilitation placement. 3. Possible rhabdomyolysis. The patient did have an elevated CK of 551. It has come down to 274. The patient was down for sufficient time to have tissue damage. We will continue to monitor this. He continues with some IV hydration. 4. Hypokalemia. Patient continues to receive electrolyte replenishment. 6. Tobacco dependency. The patient is an active smoker. Patient has a nicotine patch. VS,Fishbone, I+O VS, Fishbone, I+O Laboratory Tests 07/06/19 05:16 07/06/19 09:40 Vital Signs Date Time Temp Pulse Resp B/P (MAP) Pulse Ox O2 Delivery O2 Flow Rate FiO2 07/06/19 17:51 20 07/06/19 16:00 07/06/19 15:22 97.8 94 Room Air I&O- Last 24 Hours up to 6 AM 07/06/19 06:00 Intake Total 1000 ml Output Total 825 ml Balance 175 ml STEPHANIE LEAL MD Jul 06, 2019 19:23
[2019-07-06] MEDS: ZONISAMIDE 50 MG CAP (ZONEGRAN) PO SCH (20:43)
[2019-07-07] VITALS (14 sets, daily range): BP systolic 140–220; BP diastolic 78–102
[2019-07-07] MEDS: IPRATROPIUM 0.5MG/ALBUTEROL 2.5MG INH SOL UD 3ML (DUONEB)(J7620) NEB SCH ×4 (02:00→20:06)
[2019-07-07] MEDS: KCL 40MEQ in NS 1000ML 1,000 ML IV SCH ×2 (05:30→15:29)
[2019-07-07 06:00] LABS: INR 1.04; PROTHROMBIN TIME 13.4 SECONDS (11.8-14.0)
[2019-07-07 06:17] LABS: BLOOD UREA NITROGEN 6 MG/DL (7-18); CALCIUM LEVEL 8.2 MG/DL (8.8-10.2); CARBON DIOXIDE LEVEL 25 MEQ/L (21-32); CHLORIDE LEVEL 109 MEQ/L (98-107); CPK CREATINE PHOSPHOKINASE 303 U/L (39-308); CREATININE FOR GFR 0.58 MG/DL (0.70-1.30); GLOMERULAR FILTRATION RATE > 60.0 (>49); GLUCOSE, FASTING 79 MG/DL (70-100); MAGNESIUM LEVEL 1.7 MG/DL (1.8-2.4); POTASSIUM SERUM 3.7 MEQ/L (3.5-5.1); SODIUM LEVEL 140 MEQ/L (136-145)
[2019-07-07] MEDS: NORCO, ANEXSIA 5/325MG TABLET (HYDROcodone/ACETAMINOPHEN) PO PRN ×2 (07:07→13:07)
[2019-07-07] MEDS: CETIRIZINE (ZyrTEC) 10 MG TAB PO SCH (08:05)
[2019-07-07] MEDS: ASPIRIN 81 MG ENTERIC TAB PO SCH (08:05)
[2019-07-07] MEDS: FOLIC ACID 1 MG TAB PO SCH (08:05)
[2019-07-07] MEDS: ATORVASTATIN 20 MG TAB PO SCH (08:05)
[2019-07-07] MEDS: PREGABALIN 75 MG CAP(LYRICA) PO SCH ×2 (08:05→20:08)
[2019-07-07] MEDS: MULTIVITAMINS/MINERALS THERAP 1 TAB PO SCH (08:05)
[2019-07-07] MEDS: THIAMINE 100 MG TAB PO SCH ×2 (08:06→20:08)
[2019-07-07] MEDS: MAGNESIUM OXIDE 400 MG TAB (MAG-OX) PO SCH (08:06)
[2019-07-07] MEDS: LISINOPRIL 20 MG TAB PO SCH (08:06)
[2019-07-07] MEDS: NICOTINE 21MG/24HR 1 EA TRANSDERMAL TD SCH (08:06)
[2019-07-07] MEDS: MELOXICAM (MOBIC) 7.5 MG TAB PO SCH (08:06)
--- NOTE | 2019-07-07 19:47 | IPNPDOC ---
Text Note Date of Service The patient was seen on 07/07/19. NOTE SUBJECTIVE: Mr. Payne continues with episodes of tremulousness; this is attributed to alcohol withdrawal syndrome. The episodes are lessening in severity and frequency. Patient continues to complain of joint and muscle pain. OBJECTIVE: Physical exam: General: The patient remains tremulous HENT: The patient's neck is supple with no adenopathy or thyromegaly. 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 Alcohol dependency With alcoholic encephalopathy that is resolving and acute alcohol withdrawal. Patient remains on Ativan per [facility] protocol. He has also been placed on seizure precautions. He is receiving thiamine, folic acid and multivitamin as well. We are monitoring his electrolytes and replenishing as needed. 2. Neuropathy. Patient states his ambulation is worsening because he cannot feel his feet or legs. Patient is on a neuropathic pain regimen inclusive of Lyrica and meloxicam. He had previously been on gabapentin, but states he does not like to take this. His preference is for his hydrocodone; we can give him low doses of this. He has been evaluated by physical therapy and is poorly ambulatory; he would benefit from rehabilitation. He seems to feel that surgery will solve his problems, but he is not really a good surgical candidate overall. 3. Possible rhabdomyolysis. The patient did have an elevated CK of 551. It has come down to 274. The patient was down for sufficient time to have tissue damage. We will continue to monitor this. He continues with some IV hydration. 4. Hypokalemia. Patient continues to receive IV electrolyte replenishment, serum potassium is now 3.7. 6. Tobacco dependency. The patient is an active smoker. Patient has a nicotine patch. VS,Fishbone, I+O VS, Fishbone, I+O Laboratory Tests 07/07/19 05:05 Vital Signs Date Time Temp Pulse Resp B/P (MAP) Pulse Ox O2 Delivery O2 Flow Rate FiO2 07/07/19 16:05 98.2 61 20 140/89 (106) 100 Room Air I&O- Last 24 Hours up to 6 AM 07/07/19 06:00 Intake Total 2430 ml Output Total 2450 ml Balance -20 ml STEPHANIE LEAL MD Jul 07, 2019 19:47
[2019-07-07] MEDS: LORazepam 2 MG TAB PO PRN (20:08)
[2019-07-07] MEDS: ZONISAMIDE 50 MG CAP (ZONEGRAN) PO SCH (20:08)
[2019-07-07] MEDS ORDERED: amLODIPine 5 MG TAB PO ONE (21:00)
[2019-07-08] VITALS (8 sets, daily range): BP systolic 146–192; BP diastolic 80–98
[2019-07-08] MEDS: IPRATROPIUM 0.5MG/ALBUTEROL 2.5MG INH SOL UD 3ML (DUONEB)(J7620) NEB SCH ×4 (02:00→19:57)
[2019-07-08 05:20] LABS: INR 1.06; PROTHROMBIN TIME 13.5 SECONDS (11.8-14.0)
[2019-07-08 05:34] LABS: BLOOD UREA NITROGEN 4 MG/DL (7-18); CALCIUM LEVEL 8.5 MG/DL (8.8-10.2); CARBON DIOXIDE LEVEL 24 MEQ/L (21-32); CHLORIDE LEVEL 108 MEQ/L (98-107); CREATININE FOR GFR 0.58 MG/DL (0.70-1.30); GLOMERULAR FILTRATION RATE > 60.0 (>49); GLUCOSE, FASTING 102 MG/DL (70-100); POTASSIUM SERUM 3.4 MEQ/L (3.5-5.1); SODIUM LEVEL 137 MEQ/L (136-145)
[2019-07-08] MEDS: NORCO, ANEXSIA 5/325MG TABLET (HYDROcodone/ACETAMINOPHEN) PO PRN ×3 (06:55→20:54)
[2019-07-08] MEDS: NICOTINE 21MG/24HR 1 EA TRANSDERMAL TD SCH (08:47)
[2019-07-08] MEDS: POTASSIUM CHLORIDE 10 MEQ SR TABLET PO SCH ×2 (08:48→20:53)
[2019-07-08] MEDS: FOLIC ACID 1 MG TAB PO SCH (08:48)
[2019-07-08] MEDS: ATORVASTATIN 20 MG TAB PO SCH (08:48)
[2019-07-08] MEDS: PREGABALIN 75 MG CAP(LYRICA) PO SCH ×2 (08:48→20:53)
[2019-07-08] MEDS: THIAMINE 100 MG TAB PO SCH (08:49)
[2019-07-08] MEDS: ASPIRIN 81 MG ENTERIC TAB PO SCH (08:49)
[2019-07-08] MEDS: CETIRIZINE (ZyrTEC) 10 MG TAB PO SCH (08:49)
[2019-07-08] MEDS: MULTIVITAMINS/MINERALS THERAP 1 TAB PO SCH (08:49)
[2019-07-08] MEDS: MELOXICAM (MOBIC) 7.5 MG TAB PO SCH (08:49)
[2019-07-08] MEDS: MAGNESIUM OXIDE 400 MG TAB (MAG-OX) PO SCH (08:49)
[2019-07-08] MEDS: LISINOPRIL 20 MG TAB PO SCH (08:49)
--- NOTE | 2019-07-08 14:40 | IPNPDOC ---
Text Note Date of Service The patient was seen on 07/08/19. NOTE SUBJECTIVE: Remarkably Mr. Payne continues with tremulousness attributable to alcohol withdrawal syndrome. He does not always express himself coherently. For example, he is threatening to leave the hospital AGAINST MEDICAL ADVICE, but is unable to ambulate unassisted. OBJECTIVE: Physical exam: General: The patient remains tremulous but this is decreasing daily HENT: The patient's neck is supple with no adenopathy or thyromegaly. He does have a laceration to his right forehead closed with Steri-Strips with no active bleeding, is not demonstrating scleral icterus, but does have scleral injection, has clouded left eye from childhood injury Cardiovascular: Mildly irregular rate and rhythm, otherwise normal S1 and S2 with no appreciable murmur Respiratory: Occasional coarse breath sounds, but otherwise good air movement Extremities: No visible acute lesions or edema, pedal pulses are palpable, he does have tenderness to palpation of his muscles, also joint deformities consistent with osteoarthritis Neuro: Patient is tremulous to all extremities and to his trunk Psych: Continues with poor cognition, judgment and insight into his clinical condition, he is also very irritable ASSESSMENT/PLAN: 1. Alcohol dependency With alcoholic encephalopathy that is resolving and acute alcohol withdrawal that is improving. Patient remains on Ativan per [facility] protocol. He has also been placed on seizure precautions. He is receiving thiamine, folic acid and multivitamin as well. 2. Neuropathy. Patient states his ambulation is worsening because he cannot feel his feet or legs. Patient is on a neuropathic pain regimen inclusive of Lyrica and meloxicam. He had previously been on gabapentin, but states he does not like to take this. His preference is for his hydrocodone; he is receiving moderate doses of this.. He has been evaluated by physical therapy and is poorly ambulatory; he would benefit from rehabilitation. He seems to feel that surgery such as bilateral knee replacement will solve his problems, but he is not really a good surgical candidate overall. 3. Possible rhabdomyolysis. The patient did have an elevated CK of 551. It has come down to 274. The patient was down for sufficient time to have tissue damage. Patient received IV hydration, but no longer requires this. 4. Hypokalemia. Serum potassium has dropped to 3.4; patient has been placed on scheduled oral replacement.. He is also on scheduled oral magnesium replacement. 6. Tobacco dependency. The patient is an active smoker. Patient has a nicotine patch. VS,Fishbone, I+O VS, Fishbone, I+O Laboratory Tests 07/08/19 04:51 Vital Signs Date Time Temp Pulse Resp B/P (MAP) Pulse Ox O2 Delivery O2 Flow Rate FiO2 07/08/19 13:56 18 07/08/19 12:00 85 150/82 07/08/19 12:00 97.3 99 Room Air I&O- Last 24 Hours up to 6 AM 07/08/19 06:00 Intake Total 2830 ml Output Total 2600 ml Balance 230 ml STEPHANIE LEAL MD Jul 08, 2019 14:40
[2019-07-08] MEDS: ZONISAMIDE 50 MG CAP (ZONEGRAN) PO SCH (20:53)
[2019-07-09] VITALS (7 sets, daily range): BP systolic 139–174; BP diastolic 65–92
[2019-07-09] MEDS: IPRATROPIUM 0.5MG/ALBUTEROL 2.5MG INH SOL UD 3ML (DUONEB)(J7620) NEB SCH ×4 (01:09→19:17)
[2019-07-09] MEDS: ACETAMINOPHEN TAB 650MG DOSE (2X325MG) PO PRN (01:18)
[2019-07-09 05:15] LABS: INR 1.06; PROTHROMBIN TIME 13.5 SECONDS (11.8-14.0)
[2019-07-09 05:29] LABS: BLOOD UREA NITROGEN 3 MG/DL (7-18); CALCIUM LEVEL 8.2 MG/DL (8.8-10.2); CARBON DIOXIDE LEVEL 22 MEQ/L (21-32); CHLORIDE LEVEL 107 MEQ/L (98-107); CREATININE FOR GFR 0.65 MG/DL (0.70-1.30); GLOMERULAR FILTRATION RATE > 60.0 (>49); GLUCOSE, FASTING 112 MG/DL (70-100); MAGNESIUM LEVEL 1.3 MG/DL (1.8-2.4); POTASSIUM SERUM 3.6 MEQ/L (3.5-5.1); SODIUM LEVEL 136 MEQ/L (136-145)
[2019-07-09] MEDS: NORCO, ANEXSIA 5/325MG TABLET (HYDROcodone/ACETAMINOPHEN) PO PRN ×2 (06:31→15:20)
[2019-07-09] MEDS ORDERED: MAG SULF 1GM/100ML (MAG RUN) 2 GM in IV 1 EA IV ONE (09:00)
[2019-07-09] MEDS: CETIRIZINE (ZyrTEC) 10 MG TAB PO SCH (09:35)
[2019-07-09] MEDS: FOLIC ACID 1 MG TAB PO SCH (09:35)
[2019-07-09] MEDS: ATORVASTATIN 20 MG TAB PO SCH (09:35)
[2019-07-09] MEDS: MAGNESIUM OXIDE 400 MG TAB (MAG-OX) PO SCH (09:35)
[2019-07-09] MEDS: LISINOPRIL 20 MG TAB PO SCH (09:35)
[2019-07-09] MEDS: ASPIRIN 81 MG ENTERIC TAB PO SCH (09:35)
[2019-07-09] MEDS: MULTIVITAMINS/MINERALS THERAP 1 TAB PO SCH (09:38)
[2019-07-09] MEDS: MELOXICAM (MOBIC) 7.5 MG TAB PO SCH (09:38)
[2019-07-09] MEDS: POTASSIUM CHLORIDE 10 MEQ SR TABLET PO SCH ×2 (09:38→20:41)
[2019-07-09] MEDS: PREGABALIN 75 MG CAP(LYRICA) PO SCH ×2 (09:39→20:40)
[2019-07-09] MEDS: NICOTINE 21MG/24HR 1 EA TRANSDERMAL TD SCH (09:39)
--- NOTE | 2019-07-09 12:52 | IPNPDOC ---
Text Note Date of Service The patient was seen on 07/09/19. NOTE SUBJECTIVE: Mr. Payne does not recognize that his habits contribute to his medical condition. He does not acknowledge having been in alcohol withdrawal. He does not always express himself coherently. OBJECTIVE: Physical exam: General: Patient's tremulousness is essentially resolved today. This coincides with his decreased CIWA score. HENT: The patient's neck is supple with no adenopathy or thyromegaly. He does have a laceration to his right forehead closed with Steri-Strips with no active bleeding, is not demonstrating scleral icterus, but does have scleral injection, has clouded left eye from childhood injury Cardiovascular: Mildly irregular rate and rhythm, otherwise normal S1 and S2 with no appreciable murmur Respiratory: Occasional coarse breath sounds, but otherwise good air movement Extremities: No visible acute lesions or edema, pedal pulses are palpable, he does have tenderness to palpation of his muscles, also joint deformities consistent with osteoarthritis Neuro: Patient is tremulous to all extremities and to his trunk Psych: Continues with poor cognition, judgment and insight into his clinical condition, he is also very irritable ASSESSMENT/PLAN: 1. Alcohol dependency With alcoholic encephalopathy that is resolved and acute alcohol withdrawal that is resolved. Patient was treated with Ativan per CIWA protocol. He has also been placed on seizure precautions. He is receiving thiamine, folic acid and multivitamin as well. He does not recognize that he has a problem. 2. Neuropathy. Patient states his ambulation is worsening because he cannot feel his feet or legs. Patient is on a neuropathic pain regimen inclusive of Lyrica and meloxicam. He had previously been on gabapentin, but states he does not like to take this. His preference is for his hydrocodone; he is receiving moderate doses of this.. He has been evaluated by physical therapy and is poorly ambulatory; he would benefit from rehabilitation. He seems to feel that surgery such as bilateral knee replacement will solve his problems, but he is not really a good surgical candidate overall. He had difficulty with prior ankle replacement. 3. Resolved rhabdomyolysis. The patient did have an elevated CK of 551 and significant muscle soreness. It has come down to 274. The patient was down for sufficient time to have tissue damage. Patient received IV hydration, but no longer requires this. 4. Hypokalemia. Serum potassium is now 3.6 after receiving IV potassium and he is now on oral potassium replacement. He also has hypomagnesemia and is receiving both oral and IV replacement. 6. Tobacco dependency. The patient is an active smoker. Patient has a nicotine patch. Disposition: The patient would be safest and best served if he went to some sort of physical rehabilitation program or longterm. The patient does not fully recognize that he has problems and may not be cooperative. VS,Fishbone, I+O VS, Fishbone, I+O Laboratory Tests 07/09/19 04:48 Vital Signs Date Time Temp Pulse Resp B/P (MAP) Pulse Ox O2 Delivery O2 Flow Rate FiO2 07/09/19 09:35 146/92 07/09/19 08:00 97.7 91 21 99 Room Air I&O- Last 24 Hours up to 6 AM 07/09/19 06:00 Intake Total 3600 ml Output Total 0 ml Balance 3600 ml STEPHANIE LEAL MD Jul 09, 2019 12:52
[2019-07-09] MEDS: ZONISAMIDE 50 MG CAP (ZONEGRAN) PO SCH (20:41)
[2019-07-10] MEDS: IPRATROPIUM 0.5MG/ALBUTEROL 2.5MG INH SOL UD 3ML (DUONEB)(J7620) NEB SCH ×4 (01:05→19:42)
[2019-07-10] MEDS: ACETAMINOPHEN TAB 650MG DOSE (2X325MG) PO PRN ×2 (01:24→20:19)
[2019-07-10] MEDS: NORCO, ANEXSIA 5/325MG TABLET (HYDROcodone/ACETAMINOPHEN) PO PRN ×3 (03:24→21:47)
[2019-07-10 04:00] VITALS: BP 130/69
[2019-07-10 05:42] LABS: INR 1.14; PROTHROMBIN TIME 14.3 SECONDS (11.8-14.0)
[2019-07-10 07:27] LABS: BLOOD UREA NITROGEN 2 MG/DL (7-18); CALCIUM LEVEL 8.4 MG/DL (8.8-10.2); CARBON DIOXIDE LEVEL 21 MEQ/L (21-32); CHLORIDE LEVEL 108 MEQ/L (98-107); CREATININE FOR GFR 0.61 MG/DL (0.70-1.30); GLOMERULAR FILTRATION RATE > 60.0 (>49); GLUCOSE, FASTING 115 MG/DL (70-100); MAGNESIUM LEVEL 1.9 MG/DL (1.8-2.4); POTASSIUM SERUM 3.7 MEQ/L (3.5-5.1); SODIUM LEVEL 137 MEQ/L (136-145)
[2019-07-10 07:30] LABS: BASO % 0.7 % (0.0-1.0); EOS # 0.2 10^3/uL (0.0-0.5); EOS % 3.7 % (0.0-3.0); HEMATOCRIT 37.2 % (42.0-52.0); HEMOGLOBIN 12.4 g/dl (13.5-17.5); LYMPH # 1.2 10^3/uL (1.5-5.0); LYMPH % 26.9 % (24.0-44.0); MEAN CORPUSCULAR HEMOGLOBIN 35.3 pg (27.0-33.0); MEAN CORPUSCULAR HGB CONC 33.3 g/dl (32.0-36.5); MONO # 1.1 10^3/uL (0.0-0.8); MONO % 26.4 % (0.0-5.0); NEUTROPHILS # 1.8 10^3/uL (1.5-8.5); NEUTROPHILS % 41.6 % (36.0-66.0); PLATELET COUNT, AUTOMATED 175 10^3/uL (150-450); RED BLOOD COUNT 3.51 10^6/uL (4.30-6.10); WHITE BLOOD COUNT 4.3 10^3/uL (4.0-10.0)
[2019-07-10 07:42] VITALS: BP 135/76
[2019-07-10] MEDS: MAGNESIUM OXIDE 400 MG TAB (MAG-OX) PO SCH (08:44)
[2019-07-10] MEDS: PREGABALIN 75 MG CAP(LYRICA) PO SCH ×2 (08:44→20:19)
[2019-07-10] MEDS: ATORVASTATIN 20 MG TAB PO SCH (08:44)
[2019-07-10] MEDS: ASPIRIN 81 MG ENTERIC TAB PO SCH (08:44)
[2019-07-10] MEDS: CETIRIZINE (ZyrTEC) 10 MG TAB PO SCH (08:45)
[2019-07-10] MEDS: FOLIC ACID 1 MG TAB PO SCH (08:45)
[2019-07-10] MEDS: MULTIVITAMINS/MINERALS THERAP 1 TAB PO SCH (08:45)
[2019-07-10] MEDS: MELOXICAM (MOBIC) 7.5 MG TAB PO SCH (08:45)
[2019-07-10] MEDS: POTASSIUM CHLORIDE 10 MEQ SR TABLET PO SCH ×2 (08:45→20:20)
[2019-07-10] MEDS: LISINOPRIL 20 MG TAB PO SCH (08:45)
[2019-07-10] MEDS: NICOTINE 21MG/24HR 1 EA TRANSDERMAL TD SCH (08:46)
--- NOTE | 2019-07-10 11:18 | IPNPDOC ---
Text Note Date of Service The patient was seen on 07/10/19. NOTE Subjective: Patient was seen and examined at the bedside. Patient reports that he's been physical therapy has been making some progression. Patient denies chest pain, shortness of breath, palpitations, nausea, vomiting, or abdominal pain. Objective: Vitals (See below) General: Lying in bed, no acute distress, comfortable, AAOx3 HEENT: NC, AT CVS: +S1S2 Lungs: Fair air entry b/l, -w/r/r Abdomen: Soft, ND, NT Extremities: - Edema, - Calf tenderness Assessment and plan: Alcohol dependency; s/p Alcoholic encephalopathy - s/p Alcohol withdrawal - s/p Ativan and CIWA protocol - c/w Thiamine, Folic acid and MVI Neuropathy - likely 2/2 EtOH - c/w Lyrica, Meloxicam and Hydrocodone - c/w PT / OT; likely will need UBALDO / ARU placement HTN - BP appears well controlled - c/w Lisinopril DLP - c/w Atorvastatin and ASA 81 s/p Rhabdomyolysis - CK levels normalized - s/p IV fluid hydration s/p Hypokalemia s/p Hypomagnesemia Tobacco dependency. - Advised smoking cessation - c/w Nicotine patch DVT prophylaxis - Will start Heparin Disposition: - Patient will likely require ARU / UBALDO based on PT recommendations Andrei MORRIS, I+O VSAndrei, I+O Laboratory Tests 07/10/19 05:06 Vital Signs Date Time Temp Pulse Resp B/P (MAP) Pulse Ox O2 Delivery O2 Flow Rate FiO2 07/10/19 08:45 135/76 07/10/19 07:42 97.8 74 18 98 Room Air I&O- Last 24 Hours up to 6 AM 07/10/19 06:00 Intake Total 2390 ml Output Total 700 ml Balance 1690 ml HIEU RUIZ MD Jul 10, 2019 11:18
[2019-07-10] MEDS: HEPARIN SOD (PORCINE) 5000 UNITS/ML VIAL SQ SCH ×2 (14:39→20:20)
[2019-07-10 15:41] VITALS: BP 143/74
[2019-07-10 16:55] VITALS: BP 162/81
[2019-07-10] MEDS: ZONISAMIDE 50 MG CAP (ZONEGRAN) PO SCH (20:19)
[2019-07-10 22:00] VITALS: BP 145/79
[2019-07-11] MEDS: IPRATROPIUM 0.5MG/ALBUTEROL 2.5MG INH SOL UD 3ML (DUONEB)(J7620) NEB SCH ×2 (01:13→08:00)
[2019-07-11 02:00] VITALS: BP 130/63
[2019-07-11] MEDS: HEPARIN SOD (PORCINE) 5000 UNITS/ML VIAL SQ SCH (05:53)
[2019-07-11 06:00] VITALS: BP 142/80
[2019-07-11 06:00] LABS: INR 1.09; PROTHROMBIN TIME 13.8 SECONDS (11.8-14.0)
[2019-07-11] MEDS: NICOTINE 21MG/24HR 1 EA TRANSDERMAL TD SCH (08:25)
[2019-07-11] MEDS: ATORVASTATIN 20 MG TAB PO SCH (08:26)
[2019-07-11] MEDS: NORCO, ANEXSIA 5/325MG TABLET (HYDROcodone/ACETAMINOPHEN) PO PRN (08:27)
[2019-07-11] MEDS: MELOXICAM (MOBIC) 7.5 MG TAB PO SCH (08:27)
[2019-07-11] MEDS: ASPIRIN 81 MG ENTERIC TAB PO SCH (08:27)
[2019-07-11] MEDS: MAGNESIUM OXIDE 400 MG TAB (MAG-OX) PO SCH (08:27)
[2019-07-11] MEDS: PREGABALIN 75 MG CAP(LYRICA) PO SCH (08:27)
[2019-07-11] MEDS: POTASSIUM CHLORIDE 10 MEQ SR TABLET PO SCH (08:28)
[2019-07-11] MEDS: MULTIVITAMINS/MINERALS THERAP 1 TAB PO SCH (08:28)
[2019-07-11] MEDS: CETIRIZINE (ZyrTEC) 10 MG TAB PO SCH (08:28)
[2019-07-11 08:31] VITALS: BP 152/84
[2019-07-11] MEDS: LISINOPRIL 20 MG TAB PO SCH (08:31)
[2019-07-11] MEDS: FOLIC ACID 1 MG TAB PO SCH (08:38)
[2019-07-11] MEDS ORDERED: THIA100T7 PO (10:49)
[2019-07-11] MEDS ORDERED: FOLI1TAB11 PO (10:49)
[2019-07-11] MEDS ORDERED: MAG400TA PO (10:49)
--- NOTE | 2019-07-13 06:16 | DS.PDOC ---
Discharge Summary General Date of Admission Jul 06, 2019 at 13:31 Date of Discharge 07/11/19 Discharge Summary PROCEDURES PERFORMED DURING STAY: [None]. DISCHARGE DIAGNOSES: CONTINUOUS ALCOHOL ABUSE WITH WITHDRAWAL ALCOHOLIC ENCEPHALOPAHTHY RHABDOMYOLYSIS ELECTROLYTE IMBALANCE PERIPHERAL NEUROPATHY WITH RECURRENT FALLS. 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 COPD, PFT 05/06 FEV1/FVC 63 NICOTINE ADDICTION OSTEOARTHRITIS--KNEE and ANKLE CHRONIC NECK PAIN AAA USE OF OPIATES FOR THERAPEUTIC PURPOSES ATOPIC DERMATITIS BILATERAL CARPAL TUNNEL SYNDROME NUMEROUS SURGERIES ON LEFT EYE BILAT ILIAC STENTING FOR PVD BYPASS GRAFT R CALF 09/2017 LEFT ANKLE FUSION 2017 RIGHT CARPAL TUNNEL REPAIR 08/2018 COMPLICATIONS/CHIEF COMPLAINT: Alcohol Withdrawal. HISTORY OF PRESENT ILLNESS: See history and physical HOSPITAL COURSE: 64-year-old male with pertinent past medical history of hypertension, COPD, and aortic aneurysm, alcohol abuse, peripheral neuropath y, poor balance, gait disturbance, poor vison in one eye who presented to the emergency department on the afternoon of 07/04 via ambulance after a neighbor checked up on him around 11AM and called EMS. Patient states that on the evening of 07/03, he tried to get out of a chair at home while watching television and subsequently lost his balance, falling down and hitting the right side of his forehead on a wall. Patient reports that he "passed out for a couple minutes." When patient regained consciousness, he was unable to rise to his feet and walk. Patient then crawled to a nearby couch where he remained lying down until he was found by his neighbor. The patient reports using a wheelchair, I can, and crutches at various times to ambulate at home. He endorses a recent history of falls. As per ED report he was running around from neighbour to neighbour the night before looking for beer as he had ran out . Alcohol dependency; s/p Alcoholic encephalopathy - s/p Alcohol withdrawal - s/p Ativan and CIWA protocol - c/w Thiamine, Folic acid and MVI Peripheral Neuropathy - 2/2 EtOH - c/w Lyrica, Meloxicam and Hydrocodone - sen and worked with PT / OT and cleared for discharge home HTN - BP appears well controlled - c/w Lisinopril DLP - c/w Atorvastatin and ASA 81 s/p Rhabdomyolysis - CK levels normalized - s/p IV fluid hydration s/p Hypokalemia s/p Hypomagnesemia Tobacco dependency. - Advised smoking cessation - c/w Nicotine patch Poor vision on the left eye causing more problem with balance and gait. DISCHARGE MEDICATIONS: Please see below. ALLERGIES: Please see below. PHYSICAL EXAMINATION ON DISCHARGE: VITAL SIGNS: Please see below. General: Lying in bed, no acute distress, comfortable, AAOx3 HEENT: NC, AT, moist mucus membranes , anicteric eyes Neck Supple, no thromegaly, no JVD. CVS: +S1S2, no rub murmur or gallop Lungs: Fair air entry b/l, no ronchi or crackles. Abdomen: Soft, ND, NT Extremities: No Edema, No Calf tenderness LABORATORY DATA: Please see below. ACTIVITY: [As tolerated]. DIET: Regular DISPOSITION: 01 Home, Self-Care. DISCHARGE INSTRUCTIONS: PMD in 1 week ITEMS TO FOLLOWUP ON ON OUTPATIENT: 1. . DISCHARGE CONDITION: [Stable]. TIME SPENT ON DISCHARGE: 35 minutes. Vital Signs/I&Os Vital Signs Date Time Temp Pulse Resp B/P (MAP) Pulse Ox O2 Delivery O2 Flow Rate FiO2 07/11/19 08:57 20 Room Air 07/11/19 08:31 152/84 07/11/19 06:00 98.2 73 98 Laboratory Data CBC/BMP Item Value Date Time White Blood Count 4.3 10^3/uL 07/10/19 0506 Red Blood Count 3.51 10^6/uL L 07/10/19 0506 Hemoglobin 12.4 g/dl L 07/10/19 0506 Hematocrit 37.2 % L 07/10/19 0506 Mean Corpuscular Volume 106.0 fl H 07/10/19 0506 Mean Corpuscular Hemoglobin 35.3 pg H 07/10/19 0506 Mean Corpuscular Hemoglobin Concent 33.3 g/dl 07/10/19 0506 Red Cell Distribution Width 13.3 % 07/10/19 0506 Platelet Count 175 10^3/uL 07/10/19 0506 Immature Granulocyte % (Auto) 0.7 % 07/10/19 0506 Neutrophils (%) (Auto) 41.6 % 07/10/19 0506 Lymphocytes (%) (Auto) 26.9 % 07/10/19 0506 Monocytes (%) (Auto) 26.4 % H 07/10/19 0506 Eosinophils (%) (Auto) 3.7 % H 07/10/19 0506 Basophils (%) (Auto) 0.7 % 07/10/19 0506 Neutrophils # (Auto) 1.8 10^3/uL 07/10/19 0506 Lymphocytes # (Auto) 1.2 10^3/uL L 07/10/19 0506 Monocytes # (Auto) 1.1 10^3/uL H 07/10/19 0506 Eosinophils # (Auto) 0.2 10^3/uL 07/10/19 0506 Basophils # (Auto) 0.0 10^3/uL 07/10/19 0506 Nucleated Red Blood Cells % (auto) 0.0 % 07/10/19 0506 Sodium Level 137 MEQ/L 07/10/19 0506 Potassium Level 3.7 MEQ/L 07/10/19 0506 Chloride Level 108 MEQ/L H 07/10/19 0506 Carbon Dioxide Level 21 MEQ/L 07/10/19 0506 Anion Gap 8 MEQ/L 07/10/19 0506 Blood Urea Nitrogen 2 MG/DL L 07/10/19 0506 Creatinine 0.61 MG/DL L 07/10/19 0506 Glomerular Filtration Rate > 60.0 07/10/19 0506 Fasting Glucose 115 MG/DL H 07/10/19 0506 Calcium Level 8.4 MG/DL L 07/10/19 0506 Magnesium Level 1.9 MG/DL 07/10/19 0506 Discharge Medications Scheduled Aspirin (Aspirin EC) 81 Mg Tab, 81 MG PO DAILY, (Reported) Atorvastatin Calcium (Atorvastatin Calcium) 80 Mg Tab, 80 MG PO DAILY, (Reported) Cetirizine HCl (Cetirizine HCl) 10 Mg Tab, 10 MG PO DAILY, (Reported) Folic Acid (Folic Acid) 1 Mg Tablet, 1 MG PO DAILY Lisinopril (Lisinopril) 20 Mg Tab, 20 MG PO DAILY, (Reported) Magnesium Oxide (Magnesium Oxide) 400 Mg Tablet, 400 MG PO DAILY Meloxicam (Meloxicam) 7.5 Mg Tablet, 7.5 MG PO DAILY, (Reported) Montelukast Sodium (Singulair) 10 Mg Tab, 10 MG PO DAILY, (Reported) Pregabalin (Lyrica) 225 Mg Capsule, 225 MG PO BID, (Reported) Thiamine HCl (Thiamine HCl) 100 Mg Tablet, 100 MG PO DAILY Zonisamide (Zonisamide) 25 Mg Cap, 50 MG PO QHS, (Reported) Scheduled PRN Albuterol Sulfate (Ventolin Hfa) 18 Gm Hfa.aer.ad, 2 PUFF PO Q4H PRN for wheezing, (Reported) Hydrocodone/Acetaminophen (Hydrocodone-Acetamin 10-325 mg) 1 Each Tablet, 1 TAB PO QID PRN for pain, (Reported) Meclizine HCl (Meclizine HCl) 12.5 Mg Tab, 12.5 MG PO BID PRN for DIZZINESS, (Reported) Allergies Coded Allergies: No Known Allergies (Unverified , 07/04/19) STEPHANIE JORDAN MD Jul 13, 2019 06:16
== END 2019-07-11 13:04 | disposition home or self-care (01) | DRG 775 ==
LOC: EDBD 14:24 → M ED 14:24 → UNDOADMOB 14:25 → M ED INP 14:25 → M PCU 22:38 → OBSVTOIN 07-06 13:31 → INTOOBSV 07-06 13:31 → M PCU 07-07 23:48 → M MSPAV 07-10 16:43 → UNDODISIN 07-11 13:04
PROVIDERS: ADMIT Internal Medicine; ATTEND Internal Medicine Nephrology
DX: F10.239 Alcohol dependence with withdrawal, unspecified (principal); M62.82 Rhabdomyolysis; G31.2 Degeneration of nervous system due to alcohol; G62.1 Alcoholic polyneuropathy; I10 Essential (primary) hypertension; I71.4 Abdominal aortic aneurysm, without rupture; I73.9 Peripheral vascular disease, unspecified; F17.210 Nicotine dependence, cigarettes, uncomplicated; J44.9 Chronic obstructive pulmonary disease, unspecified; R26.89 Other abnormalities of gait and mobility; E87.6 Hypokalemia; H54.62 Unqualified visual loss, left eye, normal vision right eye; L20.9 Atopic dermatitis, unspecified; Z95.820 Peripheral vascular angioplasty status with implants and grafts; M54.2 Cervicalgia; Z79.891 Long term (current) use of opiate analgesic; Z79.82 Long term (current) use of aspirin; Z79.899 Other long term (current) drug therapy

== ENCOUNTER 2019-10-21 03:30 | Inpatient (IN) | payer OTHER ==
[2019-10-20 13:50] VITALS: BP 142/80
[~2019-10-21] VITALS: Ht 170.2 cm; Wt 80.2 kg
[~2019-10-21 03:30] MED LIST changes: +FOLI1TAB11 PO; +HYDR-4517 PO; +LYRI225C PO; +MAG400TA PO; -MECL12.575 PO; +MECL12.589 PO; +MELO7.5T35 PO; +THIA100T7 PO; +VENTAER PO; +ZONI25CA13 PO; -ZONI25CA2 PO
[2019-10-21] MEDS ORDERED: LORazepam 2 MG TAB PO PRN ×2 (06:45→12:00)
[2019-10-21] MEDS ORDERED: MULTIVITAMINS/MINERALS THERAP 1 TAB PO SCH (07:30)
[2019-10-21] MEDS ORDERED: THIAMINE 100 MG TAB PO SCH (07:30)
[2019-10-21] MEDS ORDERED: FOLIC ACID 1 MG TAB PO SCH (07:30)
[2019-10-21 10:13] LABS: BASO % 0.6 % (0.0-1.0); EOS % 0.8 % (0.0-3.0); HEMOGLOBIN 13.4 g/dl (13.5-17.5); LYMPH # 1.6 10^3/uL (1.5-5.0); LYMPH % 30.8 % (24.0-44.0); MEAN CORPUSCULAR HEMOGLOBIN 31.8 pg (27.0-33.0); MEAN CORPUSCULAR HGB CONC 35.3 g/dl (32.0-36.5); MONO # 0.4 10^3/uL (0.0-0.8); MONO % 7.5 % (0.0-5.0); NEUTROPHILS % 59.9 % (36.0-66.0); PLATELET COUNT, AUTOMATED 122 10^3/uL (150-450); RED BLOOD COUNT 4.22 10^6/uL (4.30-6.10); WHITE BLOOD COUNT 5.1 10^3/uL (4.0-10.0)
[2019-10-21 10:33] LABS: AMPHETAMINES LEVEL URINE NEGATIVE (NEGATIVE); BARBITURATES URINE NEGATIVE (NEGATIVE); BENZODIAZEPINES URINE NEGATIVE (NEGATIVE); CANNABINOIDS URINE NEGATIVE (NEGATIVE); COCAINE METABOLITE URINE NEGATIVE (NEGATIVE); METHADONE URINE NEGATIVE (NEGATIVE); OPIATES URINE NEGATIVE (NEGATIVE); PHENCYCLIDINE URINE NEGATIVE (NEGATIVE)
[2019-10-21 10:44] LABS: ALBUMIN 3.1 GM/DL (3.2-5.2); ALT/SGPT 113 U/L (12-78); BILIRUBIN,DIRECT 0.7 MG/DL (0.0-0.2); BILIRUBIN,TOTAL 1.1 MG/DL (0.2-1.0); BLOOD UREA NITROGEN 4 MG/DL (7-18); CARBON DIOXIDE LEVEL 23 MEQ/L (21-32); CHLORIDE LEVEL 94 MEQ/L (98-107); CREATININE FOR GFR 0.46 MG/DL (0.70-1.30); GLOMERULAR FILTRATION RATE > 60.0 (>49); GLUCOSE, FASTING 92 MG/DL (70-100); MAGNESIUM LEVEL 2.1 MG/DL (1.8-2.4); POTASSIUM SERUM 3.7 MEQ/L (3.5-5.1); SODIUM LEVEL 129 MEQ/L (136-145)
--- NOTE | 2019-10-21 10:46 | REP ---
CT of the brain without IV contrast: Comparisons are 07/04/2019 and 02/12/2016. There is no subdural or epidural hematoma. There is no subarachnoid or intraparenchymal hemorrhage. There is no edema, mass effect or midline shift. The ventricles and sulci are moderately dilated, unchanged, compatible with chronic diffuse volume loss. Areas of decreased attenuation are again identified within the white matter compatible with chronic microvascular ischemia. This is unchanged. The left ocular globe is atrophic and calcified. This is unchanged. Impression: There is no subdural/epidural hematoma or other acute hemorrhage. Chronic diffuse volume loss and Chronic microvascular ischemia. No edema, mass effect or midline shift. Atrophic left ocular globe. Electronically Signed by Conrad Flanagan MD 10/21/2019 10:37 A
[2019-10-21 11:07] LABS: OSMOLALITY SERUM 273 MOSM/KG (280-301)
[2019-10-21] MEDS ORDERED: MAGN400C2 PO (12:09)
[2019-10-21] MEDS ORDERED: FOLI1TAB11 PO (12:09)
[2019-10-21] MEDS ORDERED: KCL 40MEQ in NS 1000ML 1,000 ML IV SCH (13:00)
[2019-10-21 13:50] VITALS: BP 143/80
[2019-10-21 14:00] VITALS: BP 129/68
[2019-10-21] MEDS ORDERED: ALBUTEROL 90 MCG/ACT 8GM HFA INHALER INH PRN (14:15)
[2019-10-21] MEDS: CETIRIZINE (ZyrTEC) 10 MG TAB PO SCH (15:48)
[2019-10-21] MEDS: MONTELUKAST 10 MG TAB PO SCH (15:49)
[2019-10-21] MEDS: lisinopriL 20 MG TAB PO SCH (15:50)
--- NOTE | 2019-10-21 15:52 | HPE ---
DATE OF ADMISSION: 10/21/2019 TIME: Approximately 12:00 p.m. CHIEF COMPLAINT: Generalized lower extremity weakness. HISTORY OF PRESENT ILLNESS: Mr. Payne is a 64-year-old gentleman who has a history of chronic alcoholism with chronic lower extremity weakness and numbness and chronic pain syndrome associated with his left ankle. The patient presented to the hospital secondary to increased falls over the last 2 days. In the emergency department, he underwent a CT scan of his head without contrast, which showed no acute findings. He was found to have a blood alcohol level of 0.14 with no other significant findings. The emergency room physician was planning to discharge him home; however, when he was seen by physical therapy (PT) for a safety evaluation, the patient was found to be unsafe to be discharged home and it was recommended for admission to the hospital. ALLERGIES: No known drug allergies. CURRENT HOME MEDICATIONS: - Ventolin HFA - baby aspirin - atorvastatin - cetirizine - folic acid - Accident - Lisinopril - magnesium oxide - meclizine - meloxicam - Singulair - Lyrica - zonisamide PAST MEDICAL HISTORY: Notable for 1. Insulin diabetes type 2. 2. Hyperlipidemia. 3. Hypertension. 4. Posttraumatic stress disorder (PTSD). 5. Depression/anxiety. 6. Chronic heart murmur. PAST SURGICAL HISTORY: Notable for 1. Hypertension. 2. Chronic obstructive pulmonary disease (COPD). 3. Aortic aneurysm measuring 3.5 cm, unruptured. 4. Alcoholism. 5. Knee osteoarthritis. 6. Chronic thrombocytopenia. 7. Hyperlipidemia. 8. Chronic lower extremity numbness. PAST SURGICAL HISTORY: 1. Ankle surgery in the past. 2. Multiple left eye surgeries. SOCIAL HISTORY: Patient is a and lives at home alone. He had previously smoked one pack per day but he claims that he stopped during his last hospitalization in June. He had been drinking four to five beers, but states that he is nuno if he has two beers now, claims to have stopped since the last hospitalization. He gets around using a cane when he is at home, but when he is outside the home he uses a wheelchair. The patient lists himself as a [employer]. He states that his brother, Ronald Payne, his surrogate medical decision maker. FAMILY HISTORY: Notable for heart disease. REVIEW OF SYSTEMS: Positive for frequent falls, positive for alcohol use, positive for tobacco use. Remainder of the systems are otherwise negative. PHYSICAL EXAMINATION: On examination today, the patient's temperature is 97.2, heart rate is115, respirations 20, blood pressure 106/70. Oxygen saturation 98% on room air. GENERAL: Mr. Payne is an elderly appearing gentleman who appears older than his stated age. He appears to be disheveled in appearance. HEENT: Her head is atraumatic normocephalic. Speech is fluent. He has no facial asymmetry. Tympanic membranes visualized bilaterally. Pupils are unequal, left appears to be nucleated. No scleral icterus. No conjunctival pallor is noted. Oropharynx is clear without exudate, erythema or thrush. Oral mucosa is moist. NECK: Supple. No thyroid gland tenderness or goiter is appreciated. LUNG: sounds are noted bilaterally with distant breath sounds. No audible rales, wheezes or rhonchi. HEART: S1, S2. No audible murmurs. No rubs or gallops are appreciated. ABDOMEN: Protuberant, nontender. Nondistended. No palpable organomegaly. I could not detect a midline pulsatile mass associated with his aneurysm. EXTREMITIES: Without any cyanosis, clubbing or edema. He has some redness on his lower extremities from his recent falls without any evidence of skin breakdown. NEUROLOGIC: Cranial nerves II through XII are grossly intact. Distal and proximal muscle strength appear to be equal and symmetric. PERTINENT DIAGNOSTIC STUDIES ARE THE FOLLOWING: CT scan of the head was otherwise unremarkable for any acute intracranial process. Urine drug screen was negative. Alcohol level was 0.142. Folate level is still pending. B12 level is still pending. TSH is 1.5. Ammonia level is 27. Alkaline phosphatase 158, ALT 113, AST 217, total bilirubin 1.1. Sodium 129, potassium 3.7, chloride 95, bicarbonate 23, BUN 4, creatinine 0.46, glucose 92, white count 5.1, hemoglobin 13.4, hematocrit 38, platelet count 122,000. IMPRESSION: 1. Generalized weakness with frequent falls, unsafe to be discharged home. 2. Chronic alcoholism with chronic thrombocytopenia. 3. Acute alcohol intoxication. 4. Mild hyponatremia. 5. Chronic obstructive pulmonary disease (COPD). 6. Unruptured aortic aneurysm. 7. Chronic pain syndrome, secondary to osteoarthritis. PLAN: Patient will be admitted to an observation status. He will be hydrated with IV fluids. We will await the results of his B12 and folate levels. He will be resumed on his home medications. He will be seen by physical therapy (PT) and occupational therapy (OT) and they will reassess if he is safe to go home in the next 24 hours. THe patient will be placed on SCDs only due to his chronic thrombocytopenia. He will be placed on Clinical Mercer Withdrawal Assessment (CIWA) scale with Ativan to control any possible alcohol withdrawal symptoms that may occur. The patient will be monitored on telemetry.
[2019-10-21] MEDS: ATORVASTATIN 20 MG TAB PO SCH (20:43)
[2019-10-21] MEDS: PREGABALIN 75 MG CAP(LYRICA) PO SCH (20:43)
[2019-10-21] MEDS: THIAMINE 100 MG TAB PO SCH (20:43)
[2019-10-21 22:00] VITALS: BP 108/64
[2019-10-22 06:00] VITALS: BP 107/63
[2019-10-22] MEDS: MELOXICAM (MOBIC) 7.5 MG TAB PO SCH (10:53)
[2019-10-22] MEDS: MULTIVITAMINS/MINERALS THERAP 1 TAB PO SCH (10:53)
[2019-10-22] MEDS: MONTELUKAST 10 MG TAB PO SCH (10:53)
[2019-10-22] MEDS: CETIRIZINE (ZyrTEC) 10 MG TAB PO SCH (10:56)
[2019-10-22] MEDS: ASPIRIN 81 MG ENTERIC TAB PO SCH (10:56)
[2019-10-22] MEDS: lisinopriL 20 MG TAB PO SCH (10:56)
[2019-10-22] MEDS: FOLIC ACID 1 MG TAB PO SCH (10:56)
[2019-10-22] MEDS: THIAMINE 100 MG TAB PO SCH ×2 (10:57→20:39)
[2019-10-22] MEDS: PREGABALIN 75 MG CAP(LYRICA) PO SCH ×2 (10:57→20:39)
[2019-10-22] MEDS: NORCO, ANEXSIA 5/325MG TABLET (HYDROcodone/ACETAMINOPHEN) PO PRN ×2 (10:59→20:39)
--- NOTE | 2019-10-22 11:16 | IPNPDOC ---
Subjective Date Seen The patient was seen on 10/22/19. Subjective Chief Complaint/HPI [place] is c/o poor sleep overnight. He still feels weak. Objective Physical Examination General Exam: Positive: Alert, No Acute Distress Eye Exam: Positive: Conjunctiva & lids normal; Negative: Sclera icteric ENT Exam: Positive: Atraumatic, Mucous membr. moist/pink, Pharynx Normal Neck Exam: Positive: Supple; Negative: JVD, thyromegaly Chest Exam: Positive: Clear to auscultation, Normal air movement Heart Exam: Positive: Rate Normal, Regular Rhythm, Normal S1, Normal S2; Negative: Murmurs, Rubs Telemetry: Positive: No significant arrhythmia Abdomen Exam: Positive: Normal bowel sounds, Soft; Negative: Tenderness, Hepatospenomegaly Male Exam: Positive: Normal Genital Exam Extremity Exam: Positive: Normal pulses; Negative: Clubbing, Cyanosis, Edema Skin Exam: Positive: Nl turgor and temperature; Negative: Rash, Breakdown Neuro Exam: Positive: Normal Speech, Cranial Nerves 3-12 NL, Reflexes 2+ Psych Exam: Positive: Mental status NL, Mood NL, Oriented x 3 Assessment /Plan Assessment # Generalized weakness with frequent falls, unsafe to be discharged home - PT following - check MRI L-Spine to r/o spinal stenosis # Chronic alcoholism with chronic thrombocytopenia. - on CIWA protocol and nutritional supplements - no active DTs # Acute alcohol intoxication - resolved # Mild hyponatremia. - received NS x 1 liter - recheck BMP in am # Chronic obstructive pulmonary disease (COPD) - stable # Unruptured aortic aneurysm. - no complaints of abd pain # Chronic pain syndrome, secondary to osteoarthritis - continue norco Plan/VTE VTE Prophylaxis Ordered?: Yes VTE Exclusion Mechanical Proph: N/A:VTE Prophy Ordered VTE Exclusion Pharmacological: Thrombocytopenia VS, I&O, 24H, Fishbone Vital Signs/I&O Vital Signs Date Time Temp Pulse Resp B/P (MAP) Pulse Ox O2 Delivery O2 Flow Rate FiO2 10/22/19 10:59 18 10/22/19 10:56 121/65 10/22/19 06:00 99.1 75 98 Room Air I&O- Last 24 Hours up to 6 AM 10/22/19 06:00 Intake Total 1770 ml Output Total 300 ml Balance 1470 ml ЕКАТЕРИНА VILLATORO MD Oct 22, 2019 11:16
[2019-10-22 14:00] VITALS: BP 117/66
[2019-10-22] MEDS: ATORVASTATIN 20 MG TAB PO SCH (20:39)
[2019-10-22 22:00] VITALS: BP_SYST 115; BP_SYST 120; BP_DIAS 56; BP_DIAS 64
[2019-10-23 06:00] VITALS: BP 118/70
[2019-10-23 06:55] LABS: BLOOD UREA NITROGEN 4 MG/DL (7-18); CALCIUM LEVEL 7.7 MG/DL (8.8-10.2); CARBON DIOXIDE LEVEL 25 MEQ/L (21-32); CHLORIDE LEVEL 98 MEQ/L (98-107); CREATININE FOR GFR 0.44 MG/DL (0.70-1.30); GLOMERULAR FILTRATION RATE > 60.0 (>49); GLUCOSE, FASTING 89 MG/DL (70-100); POTASSIUM SERUM 3.5 MEQ/L (3.5-5.1); SODIUM LEVEL 131 MEQ/L (136-145)
[2019-10-23] MEDS: MULTIVITAMINS/MINERALS THERAP 1 TAB PO SCH (09:25)
[2019-10-23] MEDS: CETIRIZINE (ZyrTEC) 10 MG TAB PO SCH (09:25)
[2019-10-23] MEDS: MONTELUKAST 10 MG TAB PO SCH (09:25)
[2019-10-23] MEDS: PREGABALIN 75 MG CAP(LYRICA) PO SCH ×2 (09:25→19:51)
[2019-10-23] MEDS: lisinopriL 20 MG TAB PO SCH (09:25)
[2019-10-23] MEDS: MELOXICAM (MOBIC) 7.5 MG TAB PO SCH (09:25)
[2019-10-23] MEDS: ASPIRIN 81 MG ENTERIC TAB PO SCH (09:25)
[2019-10-23] MEDS: FOLIC ACID 1 MG TAB PO SCH (09:25)
[2019-10-23] MEDS: THIAMINE 100 MG TAB PO SCH ×2 (09:25→19:50)
[2019-10-23 10:19] LABS: VITAMIN B12 LEVEL 982 PG/ML (247-911)
[2019-10-23 10:20] LABS: FOLATE 23.5 NG/ML (>5.4)
--- NOTE | 2019-10-23 12:28 | IPNPDOC ---
Subjective Date Seen The patient was seen on 10/23/19. Subjective Chief Complaint/HPI [place] c/o constipation. He is alittle improved, but his legs still feel weak. MRI L-spine could not bed done yesterday due to ? of his vascular stents. Objective Physical Examination General Exam: Positive: Alert, No Acute Distress Eye Exam: Positive: Conjunctiva & lids normal; Negative: Sclera icteric ENT Exam: Positive: Mucous membr. moist/pink Neck Exam: Positive: Supple; Negative: Lymphadenopathy Chest Exam: Positive: Clear to auscultation Heart Exam: Positive: Rate Normal, Regular Rhythm, Normal S1, Normal S2, Rubs Telemetry: Positive: No significant arrhythmia Abdomen Exam: Positive: Normal bowel sounds, Soft; Negative: Tenderness, Hepatospenomegaly Male Exam: Positive: Normal Genital Exam Extremity Exam: Negative: Clubbing, Cyanosis, Edema Skin Exam: Positive: Nl turgor and temperature; Negative: Rash, Breakdown Neuro Exam: Positive: Cranial Nerves 3-12 NL Psych Exam: Positive: Mood NL, Oriented x 3 Assessment /Plan Assessment # Generalized weakness with frequent falls, unsafe to be discharged home - PT/OT following - awaiting MRI L-Spine to r/o spinal stenosis - B12, Folate, and TSH are all normal levels - Vitamin D level pending # Chronic alcoholism with chronic thrombocytopenia. - on CIWA protocol and nutritional supplements - no active DTs # Acute alcohol intoxication - resolved # Mild hyponatremia. - received NS x 1 liter - recheck BMP in am # Chronic obstructive pulmonary disease (COPD) - stable # Unruptured aortic aneurysm. - no complaints of abd pain # Chronic pain syndrome, secondary to osteoarthritis - continue norco # Constipation - colace 100 mg bid prn Dispo: will need placement Plan/VTE VTE Prophylaxis Ordered?: Yes VTE Exclusion Mechanical Proph: N/A:VTE Prophy Ordered VTE Exclusion Pharmacological: Thrombocytopenia VS, I&O, 24H, Fishbone Vital Signs/I&O Vital Signs Date Time Temp Pulse Resp B/P (MAP) Pulse Ox O2 Delivery O2 Flow Rate FiO2 10/23/19 09:25 118/70 10/23/19 06:00 94 10/23/19 06:00 97.9 16 97 Room Air I&O- Last 24 Hours up to 6 AM 10/23/19 06:00 Intake Total 2040 ml Output Total 750 ml Balance 1290 ml Laboratory Data 24H LABS Laboratory Tests 2 10/23/19 05:15: Anion Gap 8, Glomerular Filtration Rate > 60.0, Calcium Level 7.7L CBC/BMP Laboratory Tests 10/23/19 05:15 ЕКАТЕРИНА VILLATORO MD Oct 23, 2019 12:28
[2019-10-23 14:00] VITALS: BP 129/69
[2019-10-23] MEDS: ATORVASTATIN 20 MG TAB PO SCH (19:51)
[2019-10-23] MEDS: NORCO, ANEXSIA 5/325MG TABLET (HYDROcodone/ACETAMINOPHEN) PO PRN (19:52)
[2019-10-23 22:00] VITALS: BP 113/57
[2019-10-23 22:45] VITALS: BP 118/68
[2019-10-23] MEDS ORDERED: IBUPROFEN 400 MG TAB PO ONE (23:15)
[2019-10-24 06:00] VITALS: BP 112/86
[2019-10-24 06:36] LABS: BLOOD UREA NITROGEN 3 MG/DL (7-18); CALCIUM LEVEL 7.7 MG/DL (8.8-10.2); CARBON DIOXIDE LEVEL 26 MEQ/L (21-32); CHLORIDE LEVEL 100 MEQ/L (98-107); CREATININE FOR GFR 0.44 MG/DL (0.70-1.30); GLOMERULAR FILTRATION RATE > 60.0 (>49); GLUCOSE, FASTING 101 MG/DL (70-100); POTASSIUM SERUM 3.3 MEQ/L (3.5-5.1); SODIUM LEVEL 132 MEQ/L (136-145)
[2019-10-24] MEDS ORDERED: POTASSIUM CHLORIDE 10 MEQ SR TABLET PO ONE (07:30)
[2019-10-24] MEDS: MULTIVITAMINS/MINERALS THERAP 1 TAB PO SCH (09:38)
[2019-10-24] MEDS: lisinopriL 20 MG TAB PO SCH (09:39)
[2019-10-24] MEDS: THIAMINE 100 MG TAB PO SCH (09:39)
[2019-10-24] MEDS: ASPIRIN 81 MG ENTERIC TAB PO SCH (09:39)
[2019-10-24] MEDS: MELOXICAM (MOBIC) 7.5 MG TAB PO SCH (09:39)
[2019-10-24] MEDS: PREGABALIN 75 MG CAP(LYRICA) PO SCH ×2 (09:39→21:19)
[2019-10-24] MEDS: MONTELUKAST 10 MG TAB PO SCH (09:39)
[2019-10-24] MEDS: CETIRIZINE (ZyrTEC) 10 MG TAB PO SCH (09:39)
[2019-10-24] MEDS: FOLIC ACID 1 MG TAB PO SCH (09:39)
[2019-10-24] MEDS: NORCO, ANEXSIA 5/325MG TABLET (HYDROcodone/ACETAMINOPHEN) PO PRN (10:54)
[2019-10-24 14:00] VITALS: BP 106/66
--- NOTE | 2019-10-24 14:24 | IPNPDOC ---
Subjective Date Seen The patient was seen on 10/24/19. Subjective Chief Complaint/HPI Patient is comfortable in no distress. Offers no new complaints. Still not cleared from physical therapy for discharge General: Denies: ROS Unobtainable, Chills, Night Sweats, Fatigue, Malaise, Normal Appetite, Other Symptoms Constitutional: Denies: Chills, Fever, Malaise, Night Sweats, Weakness, Fati rick, Weight Loss, Lethargy, Other Pulmonary: Denies: Dyspnea, Cough, Pleuritic Chest Pain, Other Symptoms Cardiovascular: Denies: Chest Pain, Palpitations, Orthopnea, Paroxysmal Noc. Dyspnea, Edema, Lt Headedness, Other Symptoms Gastrointestinal: Denies: Nausea, Vomiting, Abdominal Pain, Diarrhea, Constipation, Melena, Hematochezia, Other Symptoms Musculoskeletal: Denies: Neck Pain, Back Pain, Shoulder Pain, Arm Pain, Hand Pain, Leg Pain, Foot Pain, Joint Pain, Muscle Pain, Spasms, Other Symptoms Neurological: Denies: Weakness, Numbness, Incoordination, Change in speech, Confusion, Seizures, Other Symptoms Objective Physical Examination General Exam: Positive: Alert, No Acute Distress Eye Exam: Positive: Conjunctiva & lids normal; Negative: Sclera icteric ENT Exam: Positive: Mucous membr. moist/pink Neck Exam: Positive: Supple; Negative: Lymphadenopathy Chest Exam: Positive: Clear to auscultation Heart Exam: Positive: Rate Normal, Regular Rhythm, Normal S1, Normal S2, Rubs Telemetry: Positive: No significant arrhythmia Abdomen Exam: Positive: Normal bowel sounds, Soft; Negative: Tenderness, Hepatospenomegaly Male Exam: Positive: Normal Genital Exam Extremity Exam: Negative: Clubbing, Cyanosis, Edema Skin Exam: Positive: Nl turgor and temperature; Negative: Rash, Breakdown Neuro Exam: Positive: Cranial Nerves 3-12 NL Psych Exam: Positive: Mood NL, Oriented x 3 Assessment /Plan Problems (1) Alcoholism Status: Chronic Problem Text: History of chronic alcoholism with chronic thrombocytopenia and generalized weakness with frequent falls Patient was started on ciwa protocol and nutritional supplement as well as started- Patient ACUTE alcohol intoxication has resolved Mild hyponatremia has also resolved Awaiting clearance from physical therapy for discharge home (2) COPD (chronic obstructive pulmonary disease) Status: Chronic Problem Text: Continue home medications Plan/VTE VTE Prophylaxis Ordered?: Yes VTE Exclusion Mechanical Proph: N/A:VTE Prophy Ordered VTE Exclusion Pharmacological: Thrombocytopenia VS, I&O, 24H, Fishbone Vital Signs/I&O Vital Signs Date Time Temp Pulse Resp B/P (MAP) Pulse Ox O2 Delivery O2 Flow Rate FiO2 10/24/19 11:30 18 Room Air 10/24/19 09:39 113/68 10/24/19 06:00 64 10/24/19 06:00 97.8 98 I&O- Last 24 Hours up to 6 AM 10/24/19 06:00 Intake Total 2920 ml Output Total 875 ml Balance 2045 ml Laboratory Data 24H LABS Laboratory Tests 2 10/23/19 23:25: Urine Color YELLOW, Urine Appearance CLEAR, Urine pH 8.0, Urine Specific [place] 1.004, Urine Protein NEGATIVE, Urine Glucose (UA) NEGATIVE, Urine Ketones NEGATIVE, Urine Blood 1+H, Urine Nitrite NEGATIVE, Urine Bilirubin NEGATIVE, Urine Urobilinogen 4.0H, Urine Leukocyte Esterase NEGATIVE, Urine WBC (Auto) 0, Urine RBC (Auto) 1, Urine Hyaline Casts (Auto) 0, Urine Bacteria (Auto) NEGATIVE, Urine Squamous Epithelial Cells 0, Urine Sperm (Auto) 10/24/19 05:28: Anion Gap 6L, Glomerular Filtration Rate > 60.0, Calcium Level 7.7L CBC/BMP Laboratory Tests 10/24/19 05:28 Microbiology Microbiology 10/23/19 Blood Culture, Received Pending 10/23/19 Blood Culture, Received Pending ZOIE GIFFORD MD Oct 24, 2019 14:24
[2019-10-24] MEDS ORDERED: ONDANSETRON 4 MG TAB (S0181) PO PRN (14:30)
[2019-10-24] MEDS: ATORVASTATIN 20 MG TAB PO SCH (21:19)
[2019-10-24 22:00] VITALS: BP_SYST 108; BP_SYST 112; BP_SYST 138; BP_DIAS 74; BP_DIAS 76; BP_DIAS 77
[2019-10-25 06:00] VITALS: BP 110/78
[2019-10-25 07:00] LABS: BASO % 0.7 % (0.0-1.0); EOS # 0.1 10^3/uL (0.0-0.5); EOS % 0.8 % (0.0-3.0); HEMATOCRIT 30.2 % (42.0-52.0); HEMOGLOBIN 10.6 g/dl (13.5-17.5); LYMPH # 1.5 10^3/uL (1.5-5.0); MEAN CORPUSCULAR HEMOGLOBIN 32.2 pg (27.0-33.0); MEAN CORPUSCULAR HGB CONC 35.1 g/dl (32.0-36.5); MEAN CORPUSCULAR VOLUME 91.8 fl (80.0-96.0); MONO # 0.7 10^3/uL (0.0-0.8); MONO % 11.2 % (0.0-5.0); NEUTROPHILS # 3.8 10^3/uL (1.5-8.5); NEUTROPHILS % 61.8 % (36.0-66.0); PLATELET COUNT, AUTOMATED 133 10^3/uL (150-450); RED BLOOD COUNT 3.29 10^6/uL (4.30-6.10); WHITE BLOOD COUNT 6.1 10^3/uL (4.0-10.0)
[2019-10-25 07:27] LABS: ALBUMIN 2.4 GM/DL (3.2-5.2); ALT/SGPT 66 U/L (12-78); BILIRUBIN,TOTAL 1.4 MG/DL (0.2-1.0); BLOOD UREA NITROGEN 4 MG/DL (7-18); CALCIUM LEVEL 7.9 MG/DL (8.8-10.2); CARBON DIOXIDE LEVEL 22 MEQ/L (21-32); CHLORIDE LEVEL 95 MEQ/L (98-107); CREATININE FOR GFR 0.54 MG/DL (0.70-1.30); GLOMERULAR FILTRATION RATE > 60.0 (>49); GLUCOSE, FASTING 101 MG/DL (70-100); POTASSIUM SERUM 3.2 MEQ/L (3.5-5.1); SODIUM LEVEL 124 MEQ/L (136-145); TOTAL PROTEIN 6.1 GM/DL (6.4-8.2)
[2019-10-25] MEDS ORDERED: NS 1,000 ML IV SCH (08:00)
[2019-10-25] MEDS: MELOXICAM (MOBIC) 7.5 MG TAB PO SCH (08:21)
[2019-10-25] MEDS: CETIRIZINE (ZyrTEC) 10 MG TAB PO SCH (08:21)
[2019-10-25] MEDS: ASPIRIN 81 MG ENTERIC TAB PO SCH (08:21)
[2019-10-25] MEDS: MULTIVITAMINS/MINERALS THERAP 1 TAB PO SCH (08:21)
[2019-10-25] MEDS: FOLIC ACID 1 MG TAB PO SCH (08:21)
[2019-10-25] MEDS: KCL 10MEQ/100ML SWI (KRUN) 10 MEQ in IV 1 EA IV SCH ×3 (08:21→11:57)
[2019-10-25] MEDS: PREGABALIN 75 MG CAP(LYRICA) PO SCH ×2 (08:21→20:23)
[2019-10-25] MEDS: MONTELUKAST 10 MG TAB PO SCH (08:22)
[2019-10-25] MEDS: NORCO, ANEXSIA 5/325MG TABLET (HYDROcodone/ACETAMINOPHEN) PO PRN (08:29)
[2019-10-25] MEDS: lisinopriL 20 MG TAB PO SCH (09:00)
[2019-10-25] MEDS ORDERED: MAG SULF 1GM/100ML (MAG RUN) 1 GM in IV 1 EA IV ONE (09:00)
--- NOTE | 2019-10-25 11:15 | IPNPDOC ---
Subjective Date Seen The patient was seen on 10/25/19. Subjective Chief Complaint/HPI Patient is comfortable in no apparent distress off was no new complaints General: Denies: ROS Unobtainable, Chills, Night Sweats, Fatigue, Malaise, Normal Appetite, Other Symptoms Constitutional: Denies: Chills, Fever, Malaise, Night Sweats, Weakness, Fatigue, Weight Loss, Lethargy, Other Skin: Denies: Rash, Lesions, Jaundice, Bruising, Itching, Dry, Breakdown, Nail Changes, Other Pulmonary: Denies: Dyspnea, Cough, Pleuritic Chest Pain, Other Symptoms Cardiovascular: Denies: Chest Pain, Palpitations, Orthopnea, Paroxysmal Noc. Dyspnea, Edema, Lt Headedness, Other Symptoms Gastrointestinal: Denies: Nausea, Vomiting, Abdominal Pain, Diarrhea, Constipation, Melena, Hematochezia, Other Symptoms Musculoskeletal: Denies: Neck Pain, Back Pain, Shoulder Pain, Arm Pain, Hand Pain, Leg Pain, Foot Pain, Joint Pain, Muscle Pain, Spasms, Other Symptoms Neurological: Denies: Weakness, Numbness, Incoordination, Change in speech, Confusion, Seizures, Other Symptoms Objective Physical Examination Eye Exam: Negative: Sclera icteric ENT Exam: Positive: Mucous membr. moist/pink Neck Exam: Positive: Supple; Negative: Lymphadenopathy Chest Exam: Positive: Clear to auscultation Heart Exam: Positive: Rate Normal, Regular Rhythm, Normal S1, Normal S2, Rubs Telemetry: Positive: No significant arrhythmia Abdomen Exam: Positive: Normal bowel sounds, Soft; Negative: Tenderness, Hepatospenomegaly Male Exam: Positive: Normal Genital Exam Extremity Exam: Negative: Clubbing, Cyanosis, Edema Skin Exam: Positive: Nl turgor and temperature; Negative: Rash, Breakdown Neuro Exam: Positive: Cranial Nerves 3-12 NL Psych Exam: Positive: Mood NL, Oriented x 3 Assessment /Plan Problems (1) Alcoholism Status: Chronic Problem Text: History of chronic alcoholism with chronic thrombocytopenia and generalized weakness with frequent falls Patient was started on ciwa protocol and nutritional supplement as well as started- Patient ACUTE alcohol intoxication has resolved Mild hyponatremia has also resolved Awaiting clearance from physical therapy for discharge home (2) COPD (chronic obstructive pulmonary disease) Status: Chronic Problem Text: Continue home medications (3) Hyponatremia Status: Acute Problem Text: Most likely secondary to alcohol abuse Unable to start IV line Will change in sodium chloride 1 g by mouth 3 times a day Repeat labs in a.m. (4) Hypokalemia Status: Acute Problem Text: Unable to establish IV line Will change potassium supplement to by mouth 40 mg 1 A.m. labs Plan/VTE VTE Prophylaxis Ordered?: Yes VTE Exclusion Mechanical Proph: N/A:VTE Prophy Ordered VTE Exclusion Pharmacological: Thrombocytopenia VS, I&O, 24H, Fishbone Vital Signs/I&O Vital Signs Date Time Temp Pulse Resp B/P (MAP) Pulse Ox O2 Delivery O2 Flow Rate FiO2 10/25/19 09:00 94/50 10/25/19 08:29 20 Room Air 10/25/19 06:00 79 10/25/19 06:00 97.6 95 I&O- Last 24 Hours up to 6 AM 10/25/19 06:00 Intake Total 4071 ml Output Total 600 ml Balance 3471 ml Laboratory Data 24H LABS Laboratory Tests 2 10/25/19 06:34: Immature Granulocyte % (Auto) 0.5, Neutrophils (%) (Auto) 61.8, Lymphocytes (%) (Auto) 25.0, Monocytes (%) (Auto) 11.2H, Eosinophils (%) (Auto) 0.8, Basophils (%) (Auto) 0.7, Neutrophils # (Auto) 3.8, Lymphocytes # (Auto) 1.5, Monocytes # (Auto) 0.7, Eosinophils # (Auto) 0.1, Basophils # (Auto) 0.0, Nucleated Red Blood Cells % (auto) 0.0, Anion Gap 7L, Glomerular Filtration Rate > 60.0, Calcium Level 7.9L, Total Bilirubin 1.4H, Aspartate Amino Transf (AST/SGOT) 114H, Alanine Aminotransferase (ALT/SGPT) 66, Alkaline Phosphatase 103, Total Protein 6.1L, Albumin 2.4L, Albumin/Globulin Ratio 0.65L CBC/BMP Laboratory Tests 10/25/19 06:34 Microbiology Microbiology 10/23/19 Blood Culture - Preliminary, Resulted No growth after 24 hours . All specim... 10/23/19 Blood Culture - Preliminary, Resulted No growth after 24 hours . All specim... ZOIE GIFFORD MD Oct 25, 2019 11:15
[2019-10-25] MEDS ORDERED: POTASSIUM CHLORIDE 10 MEQ SR TABLET PO ONE (11:30)
[2019-10-25] MEDS ORDERED: traZODone 25MG PER 1/2 TABLET PO PRN (12:15)
[2019-10-25] MEDS ORDERED: KCL 10MEQ/100ML SWI (KRUN) 10 MEQ in IV 1 EA IV SCH (13:15)
[2019-10-25] MEDS: SODIUM CHLORIDE 1 GM TAB PO SCH ×3 (13:17→20:23)
[2019-10-25 14:00] VITALS: BP 122/76
[2019-10-25] MEDS: ATORVASTATIN 20 MG TAB PO SCH (20:23)
[2019-10-25 21:00] VITALS: BP 133/65
[2019-10-25 22:00] VITALS: BP 129/71
[2019-10-26 06:00] VITALS: BP_SYST 124; BP_SYST 128; BP_DIAS 64; BP_DIAS 77
[2019-10-26 06:27] LABS: ALBUMIN 2.3 GM/DL (3.2-5.2); ALT/SGPT 70 U/L (12-78); BILIRUBIN,TOTAL 1.2 MG/DL (0.2-1.0); BLOOD UREA NITROGEN 3 MG/DL (7-18); CARBON DIOXIDE LEVEL 20 MEQ/L (21-32); CHLORIDE LEVEL 101 MEQ/L (98-107); CREATININE FOR GFR 0.41 MG/DL (0.70-1.30); GLOMERULAR FILTRATION RATE > 60.0 (>49); GLUCOSE, FASTING 86 MG/DL (70-100); POTASSIUM SERUM 3.6 MEQ/L (3.5-5.1); SODIUM LEVEL 129 MEQ/L (136-145); TOTAL PROTEIN 6.4 GM/DL (6.4-8.2)
[2019-10-26] MEDS: MONTELUKAST 10 MG TAB PO SCH (09:14)
[2019-10-26] MEDS: MELOXICAM (MOBIC) 7.5 MG TAB PO SCH (09:14)
[2019-10-26] MEDS: MULTIVITAMINS/MINERALS THERAP 1 TAB PO SCH (09:15)
[2019-10-26] MEDS: SODIUM CHLORIDE 1 GM TAB PO SCH (09:15)
[2019-10-26] MEDS: PREGABALIN 75 MG CAP(LYRICA) PO SCH (09:15)
[2019-10-26 09:16] VITALS: BP 127/64
[2019-10-26] MEDS: CETIRIZINE (ZyrTEC) 10 MG TAB PO SCH (09:16)
[2019-10-26] MEDS: lisinopriL 20 MG TAB PO SCH (09:16)
[2019-10-26] MEDS: FOLIC ACID 1 MG TAB PO SCH (09:16)
[2019-10-26] MEDS: ASPIRIN 81 MG ENTERIC TAB PO SCH (09:16)
--- NOTE | 2019-10-26 10:51 | IPNPDOC ---
Subjective Date Seen The patient was seen on 10/26/19. Subjective Chief Complaint/HPI Patient is awake, alert, in no distress and he is refusing to be discharged or transferred to rehabilitation facility General: Denies: ROS Unobtainable, Chills, Night Sweats, Fatigue, Malaise, Normal Appetite, Other Symptoms Constitutional: Denies: Chills, Fever, Malaise, Night Sweats, Weakness, Fatig ue, Weight Loss, Lethargy, Other Pulmonary: Denies: Dyspnea, Cough, Pleuritic Chest Pain, Other Symptoms Cardiovascular: Denies: Chest Pain, Palpitations, Orthopnea, Paroxysmal Noc. Dyspnea, Edema, Lt Headedness, Other Symptoms Gastrointestinal: Denies: Nausea, Vomiting, Abdominal Pain, Diarrhea, Constipation, Melena, Hematochezia, Other Symptoms Genitourinary: Denies: Dysuria, Frequency, Incontinence, Hematuria, Retention, Other Symptoms Musculoskeletal: Denies: Neck Pain, Back Pain, Shoulder Pain, Arm Pain, Hand Pain, Leg Pain, Foot Pain, Joint Pain, Muscle Pain, Spasms, Other Symptoms Neurological: Denies: Weakness, Numbness, Incoordination, Change in speech, Confusion, Seizures, Other Symptoms Objective Physical Examination Eye Exam: Negative: Sclera icteric ENT Exam: Positive: Mucous membr. moist/pink Neck Exam: Positive: Supple; Negative: Lymphadenopathy Chest Exam: Positive: Clear to auscultation Heart Exam: Positive: Rate Normal, Regular Rhythm, Normal S1, Normal S2, Rubs Telemetry: Positive: No significant arrhythmia Abdomen Exam: Positive: Normal bowel sounds, Soft; Negative: Tenderness, Hepatospenomegaly Male Exam: Positive: Normal Genital Exam Extremity Exam: Negative: Clubbing, Cyanosis, Edema Skin Exam: Positive: Nl turgor and temperature; Negative: Rash, Breakdown Neuro Exam: Positive: Cranial Nerves 3-12 NL Psych Exam: Positive: Mood NL, Oriented x 3 Assessment /Plan Problems (1) Alcoholism Status: Chronic Problem Text: History of chronic alcoholism with chronic thrombocytopenia and generalized weakness with frequent falls Patient was started on ciwa protocol and nutritional supplement as well as started- Patient ACUTE alcohol intoxication has resolved Mild hyponatremia has also resolved As per physical therapy. Patient needs a rehabilitation transfer, but patient is refusing rehabilitation transfer, but he is unstable to be discharged home secondary to his alcoholism. Discussed with case management and social worker psychiatric regarding DC planning (2) COPD (chronic obstructive pulmonary disease) Status: Chronic Problem Text: Continue home medications (3) Hyponatremia Status: Acute Problem Text: Most likely secondary to alcohol abuse Unable to start IV line Will change in sodium chloride 1 g by mouth 3 times a day Sodium is slightly improved. Continue sodium chloride tablets (4) Hypokalemia Status: Resolved Problem Text: Resolved Plan/VTE VTE Prophylaxis Ordered?: Yes VTE Exclusion Mechanical Proph: N/A:VTE Prophy Ordered VTE Exclusion Pharmacological: Thrombocytopenia VS, I&O, 24H, Fishbone Vital Signs/I&O Vital Signs Date Time Temp Pulse Resp B/P (MAP) Pulse Ox O2 Delivery O2 Flow Rate FiO2 10/26/19 09:16 127/64 10/26/19 06:00 82 10/26/19 06:00 98.0 18 97 10/25/19 22:00 Room Air I&O- Last 24 Hours up to 6 AM 10/26/19 06:00 Intake Total 1985 ml Output Total 350 ml Balance 1635 ml Laboratory Data 24H LABS Laboratory Tests 2 10/26/19 05:07: Anion Gap 8, Glomerular Filtration Rate > 60.0, Calcium Level 8.0L, Total Bilirubin 1.2H, Aspartate Amino Transf (AST/SGOT) 154H, Alanine Aminotransferase (ALT/SGPT) 70, Alkaline Phosphatase 108, Total Protein 6.4, Albumin 2.3L, Albumin/Globulin Ratio 0.56L CBC/BMP Laboratory Tests 10/26/19 05:07 Microbiology Microbiology 10/23/19 Blood Culture - Preliminary, Resulted No Growth after 48 hours. All Specime... 10/23/19 Blood Culture - Preliminary, Resulted No Growth after 48 hours. All Specime... ZOIE GIFFORD MD Oct 26, 2019 10:51
--- NOTE | 2019-10-26 12:46 | DS.PDOC ---
Discharge Summary General Date of Admission Oct 24, 2019 at 10:06 Date of Discharge 10/26/19 Discharge Summary PROCEDURES PERFORMED DURING STAY: None. ADMITTING DIAGNOSES: 1. Alcoholism. DISCHARGE DIAGNOSES: 1. Alcoholism. COMPLICATIONS/CHIEF COMPLAINT: Alcoholism. HISTORY OF PRESENT ILLNESS: Mr. Payne is a 64-year-old gentleman who has a history of chronic alcoholism with chronic lower extremity weakness and numbness and chronic pain syndrome associated with his left ankle. The patient presented to the hospital secondary to increased falls over the last 2 days. In the emergency department, he underwent a CT scan of his head without contrast, which showed no acute findings. He was found to have a blood alcohol level of 0.14 with no other significant findings. The emergency room physician was planning to discharge him home; however, when he was seen by physical therapy (PT) for a safety evaluation, the patient was found to be unsafe to be discharged home and it was recommended for admission to the hospital.. HOSPITAL COURSE: (1) Alcoholism History of chronic alcoholism with chronic thrombocytopenia and generalized weakness with frequent falls Patient was started on ciwa protocol and nutritional supplement as well as started- Patient ACUTE alcohol intoxication has resolved Mild hyponatremia has also resolved As per physical therapy. Patient needs a rehabilitation transfer, but patient is refusing rehabilitation transfe Patient signed out AGAINST MEDICAL ADVICE and went home, further, as per discharge instruction And son-in-law was called and informed regarding patient's condition. Only and his decision to sign out AMA and leave AGAINST MEDICAL ADVICE, patient had already given permission to speak with his son-in-law to me and to the nursing staff as well (2) COPD (chronic obstructive pulmonary disease) Continue home medications (3) Hyponatremia Most likely secondary to alcohol abuse Unable to start IV line Will change in sodium chloride 1 g by mouth 3 times a day Sodium is slightly improved. Continue sodium chloride tablets (4) Hypokalemia Resolved. DISCHARGE MEDICATIONS: Please see below. ALLERGIES: Please see below. PHYSICAL EXAMINATION ON DISCHARGE: VITAL SIGNS: Please see below. GENERAL: Within normal limits HEENT: PERRLA, extra ocular muscle intact NECK: Supple . P CARDIOVASCULAR EXAMINATION: S1, S2, regular RESPIRATORY EXAMINATION: Clear to A&P ABDOMINAL EXAMINATION: , Soft, nontender, bowel sounds present EXTREMITIES: No clubbing, cyanosis, edema SKIN: Within normal limits NEUROLOGICAL EXAMINATION: . No focal motor sensory deficit PSYCHIATRIC EXAMINATION: Normal LABORATORY DATA: Please see below. IMAGING: CT head:There is no subdural/epidural hematoma or other acute hemorrhage. Chronic diffuse volume loss and Chronic microvascular ischemia. No edema, mass effect or midline shift. Atrophic left ocular globe. PROGNOSIS: Good ACTIVITY: As tolerated. DIET: As tolerated DISCHARGE PLAN: Patient was planned to be discharged to rehabilitation, but he refused to be transferred to rehabilitation and sign out AMA and went to home DISPOSITION: . AMA DISCHARGE INSTRUCTIONS: 1. As per discharge instructions. ITEMS TO FOLLOWUP ON ON OUTPATIENT: 1. Follow with PCP in one week. DISCHARGE CONDITION: AMA. TIME SPENT ON DISCHARGE: 35 Vital Signs/I&Os Vital Signs Date Time Temp Pulse Resp B/P (MAP) Pulse Ox O2 Delivery O2 Flow Rate FiO2 10/26/19 09:16 127/64 10/26/19 06:00 82 10/26/19 06:00 98.0 18 97 10/25/19 22:00 Room Air I&O- Last 24 Hours up to 6 AM 10/26/19 06:00 Intake Total 1985 ml Output Total 350 ml Balance 1635 ml Laboratory Data Labs 24H Laboratory Tests 2 10/26/19 05:07: Anion Gap 8, Glomerular Filtration Rate > 60.0, Calcium Level 8.0L, Total Bilirubin 1.2H, Aspartate Amino Transf (AST/SGOT) 154H, Alanine Aminotransferase (ALT/SGPT) 70, Alkaline Phosphatase 108, Total Protein 6.4, Albumin 2.3L, Albumin/Globulin Ratio 0.56L CBC/BMP Laboratory Tests 10/26/19 05:07 Microbiology Microbiology 10/23/19 Blood Culture - Preliminary, Resulted No Growth after 48 hours. All Specime... 10/23/19 Blood Culture - Preliminary, Resulted No Growth after 48 hours. All Specime... Discharge Medications Scheduled Aspirin (Aspirin EC) 81 Mg Tab, 81 MG PO DAILY, (Reported) Atorvastatin Calcium (Atorvastatin Calcium) 80 Mg Tab, 80 MG PO QHS, (Reported) Cetirizine HCl (Cetirizine HCl) 10 Mg Tab, 10 MG PO DAILY, (Reported) Folic Acid (Folic Acid) 1 Mg Tablet, 1 MG PO DAILY, (Reported) Lisinopril (Lisinopril) 20 Mg Tab, 20 MG PO DAILY, (Reported) Magnesium Oxide (Magnesium) 400 Mg Capsule, 400 MG PO DAILY, (Reported) Meloxicam (Meloxicam) 7.5 Mg Tablet, 7.5 MG PO DAILY, (Reported) Montelukast Sodium (Singulair) 10 Mg Tab, 10 MG PO DAILY, (Reported) Pregabalin (Lyrica) 225 Mg Capsule, 225 MG PO BID, (Reported) Zonisamide (Zonisamide) 25 Mg Cap, 50 MG PO QHS, (Reported) Scheduled PRN Albuterol Sulfate (Ventolin Hfa) 18 Gm Hfa.aer.ad, 2 PUFF PO Q4H PRN for wheezing, (Reported) Hydrocodone/Acetaminophen (Hydrocodone-Acetamin 10-325 mg) 1 Each Tablet, 1 TAB PO QID PRN for pain, (Reported) Meclizine HCl (Meclizine HCl) 12.5 Mg Tab, 12.5 MG PO BID PRN for DIZZINESS, (Reported) Allergies Coded Allergies: No Known Allergies (Unverified , 07/04/19) ZOIE GIFFORD MD Oct 26, 2019 12:46
== END 2019-10-26 14:20 | disposition left against medical advice (07) | DRG 770 ==
LOC: M ED 03:30 → M ED INP 12:09 → ENRESERV 12:16 → M MSPAV 13:36 → OBSVTOIN 10-24 10:06
PROVIDERS: ADMIT Internal Medicine; ATTEND Internal Medicine
DX: F10.229 Alcohol dependence with intoxication, unspecified (principal); E87.1 Hypo-osmolality and hyponatremia; D69.6 Thrombocytopenia, unspecified; R53.1 Weakness; R29.6 Repeated falls; G89.4 Chronic pain syndrome; E87.6 Hypokalemia; K59.00 Constipation, unspecified; J44.9 Chronic obstructive pulmonary disease, unspecified; E11.9 Type 2 diabetes mellitus without complications; E78.5 Hyperlipidemia, unspecified; M19.072 Primary osteoarthritis, left ankle and foot; I71.9 Aortic aneurysm of unspecified site, without rupture; I10 Essential (primary) hypertension; F43.10 Post-traumatic stress disorder, unspecified; F32.9 Major depressive disorder, single episode, unspecified; F41.9 Anxiety disorder, unspecified; R01.1 Cardiac murmur, unspecified; Z79.82 Long term (current) use of aspirin; Z79.891 Long term (current) use of opiate analgesic; Z79.899 Other long term (current) drug therapy; Z87.891 Personal history of nicotine dependence

== ENCOUNTER 2019-11-02 09:13 | Inpatient (IN) | payer OTHER ==
[~2019-11-02] VITALS: Ht 170.2 cm; Wt 73.8 kg
[~2019-11-02 09:13] MED LIST changes: +FOLIC ACID 1 MG TAB PO SCH; +MAGN400C2 PO
[2019-11-02] MEDS ORDERED: NS 1,000 ML IV ONE (09:30)
[2019-11-02 10:05] LABS: BASO % 0.1 % (0.0-1.0); EOS % 0.5 % (0.0-3.0); HEMATOCRIT 36.3 % (42.0-52.0); HEMOGLOBIN 11.9 g/dl (13.5-17.5); LYMPH # 1.6 10^3/uL (1.5-5.0); MEAN CORPUSCULAR HEMOGLOBIN 31.8 pg (27.0-33.0); MEAN CORPUSCULAR HGB CONC 32.8 g/dl (32.0-36.5); MEAN CORPUSCULAR VOLUME 97.1 fl (80.0-96.0); MONO # 0.5 10^3/uL (0.0-0.8); MONO % 5.6 % (0.0-5.0); NEUTROPHILS # 6.2 10^3/uL (1.5-8.5); PLATELET COUNT, AUTOMATED 222 10^3/uL (150-450); RED BLOOD COUNT 3.74 10^6/uL (4.30-6.10); WHITE BLOOD COUNT 8.4 10^3/uL (4.0-10.0)
[2019-11-02 10:43] LABS: ALBUMIN 2.3 GM/DL (3.2-5.2); ALT/SGPT 75 U/L (12-78); BILIRUBIN,DIRECT 0.7 MG/DL (0.0-0.2); BILIRUBIN,TOTAL 1.2 MG/DL (0.2-1.0); BLOOD UREA NITROGEN 9 MG/DL (7-18); CALCIUM LEVEL 8.1 MG/DL (8.8-10.2); CARBON DIOXIDE LEVEL 23 MEQ/L (21-32); CHLORIDE LEVEL 105 MEQ/L (98-107); CREATININE FOR GFR 0.64 MG/DL (0.70-1.30); ETHYL ALCOHOL (ETHANOL) < 0.003 % (0.000-0.010); GLOMERULAR FILTRATION RATE > 60.0 (>49); GLUCOSE, FASTING 122 MG/DL (70-100); LIPASE 209 U/L (73-393); MAGNESIUM LEVEL 2.1 MG/DL (1.8-2.4); POTASSIUM SERUM 2.8 MEQ/L (3.5-5.1); SODIUM LEVEL 140 MEQ/L (136-145)
[2019-11-02] MEDS ORDERED: LORazepam 2 MG TAB PO PRN (11:30)
[2019-11-02] MEDS ORDERED: KCL 10MEQ/100ML SWI (KRUN) 10 MEQ in IV 1 EA IV ONE (11:30)
[2019-11-02] MEDS: THIAMINE 100 MG TAB PO SCH ×2 (11:37→20:52)
[2019-11-02] MEDS: MULTIVITAMINS/MINERALS THERAP 1 TAB PO SCH (11:38)
--- NOTE | 2019-11-02 15:50 | REP ---
Clinical: Hypoxia. Comparison: 07/04/2019. Findings: Diffuse bilateral alveolar and interstitial infiltrates. No obvious effusion. No pneumothorax. Cardiac silhouette is normal. Skeletal structures are intact. Impression: Multi focal pneumonia. Electronically Signed by Beto Boles MD 11/02/2019 03:42 P
[2019-11-02] MEDS ORDERED: AZITHROMYCIN INJ 500 MG, VIAL MATE ADAPTER 1 EACH in D5W 250 ML IV ONE (16:00)
[2019-11-02] MEDS ORDERED: cefTRIAXone SOD 2 GM in D5W MINI-BAG PLUS 50 ML IV ONE (16:00)
[2019-11-02] MEDS ORDERED: GLUCAGON FOR INJ 1 MG VIAL (J1610) SC PRN (17:00)
[2019-11-02] MEDS ORDERED: ACETAMINOPHEN TAB 650MG DOSE (2X325MG) PO PRN (17:00)
[2019-11-02] MEDS ORDERED: NS IV ONE (17:00)
[2019-11-02] MEDS ORDERED: MOM 30ML SUSPENSION UDC PO PRN (17:00)
[2019-11-02] MEDS: POTASSIUM CHLORIDE 10 MEQ SR TABLET PO ONE ×2 (17:00→20:52)
[2019-11-02] MEDS ORDERED: DEXTROSE 50% 50 ML SYRINGE IV PRN (17:00)
[2019-11-02] MEDS ORDERED: GLUCOSE 4 GM CHEW TABLET PO PRN (17:00)
[2019-11-02 17:09] LABS: AMYLASE 56 U/L (25-115); C REACTIVE PROTEIN QUANTITATIV 3.68 MG/DL (0.00-0.30); CK-MB VALUE MASS 2.8 NG/ML (<3.6); CPK CREATINE PHOSPHOKINASE 122 U/L (39-308); TROPONIN I 0.18 NG/ML (< 0.10)
--- NOTE | 2019-11-02 17:18 | HPEPDOC ---
General Date of Admission Nov 02, 2019 at 16:47 Date of Service: Nov 02, 2019 Chief Complaint The patient is a 64-year-old male admitted with a reason for visit of Diarrhea; Multifocal Pneumonia. Source: Patient, RN/MD, RN notes reviewed, EMS notes reviewed Exam Limitations: No limitations Timing/Duration: Other (2-3 days) Severity: Other (, not applicable) Associated Symptoms: Other ( , diarrhea) History of Present Illness This is a 64 years old white male who had recently signed out AMA last week after he was treated for alcohol withdrawal and generalized weakness. Patient was scheduled to be discharged to a rehabilitation facility but his decided to sign out against medical advise and leave the hospital. Patient was found defecating on the couch and all covered in feces since last 3 days and refused to come to the hospital, hence his landlord called ambulance and patient was brought to ER. According to patient, he has not drank since last time he left. He is apparently not in withdrawal and he does not offer any complaints and is upset that he was brought to the hospital. Unable to obtained good history from patient. Hence, the information was obtained from robert Brown RN and EMS notes Home Medications Scheduled Aspirin (Aspirin EC) 81 Mg Tab, 81 MG PO DAILY, (Reported) Atorvastatin Calcium (Atorvastatin Calcium) 80 Mg Tab, 80 MG PO QHS, (Reported) Cetirizine HCl (Cetirizine HCl) 10 Mg Tab, 10 MG PO DAILY, (Reported) Folic Acid (Folic Acid) 1 Mg Tablet, 1 MG PO DAILY, (Reported) Lisinopril (Lisinopril) 20 Mg Tab, 20 MG PO DAILY, (Reported) Magnesium Oxide (Magnesium) 400 Mg Capsule, 400 MG PO DAILY, (Reported) Meloxicam (Meloxicam) 7.5 Mg Tablet, 7.5 MG PO DAILY, (Reported) Montelukast Sodium (Singulair) 10 Mg Tab, 10 MG PO DAILY, (Reported) Pregabalin (Lyrica) 225 Mg Capsule, 225 MG PO BID, (Reported) Zonisamide (Zonisamide) 25 Mg Cap, 50 MG PO QHS, (Reported) Scheduled PRN Albuterol Sulfate (Ventolin Hfa) 18 Gm Hfa.aer.ad, 2 PUFF PO Q4H PRN for wheezing, (Reported) Hydrocodone/Acetaminophen (Hydrocodone-Acetamin 10-325 mg) 1 Each Tablet, 1 TAB PO QID PRN for pain, (Reported) Meclizine HCl (Meclizine HCl) 12.5 Mg Tab, 12.5 MG PO BID PRN for DIZZINESS, (Reported) Allergies Coded Allergies: No Known Allergies (Unverified , 07/04/19) Past Medical History Medical History Diabetes mellitus type 2, hyperlipidemia, hypertension, posttraumatic stress syndrome, depression, anxiety, chronic heart murmur, alcoholism, knee osteoa rthritis, chronic thrombocytopenia, hyperlipidemia, and chronic lower extremity numbness Surgical History Ankle surgery and multiple eye surgeries Social History * Smoker: former Smoker Alcohol: other (, probably alcohol use by history) Drugs: denies A-FIB/CHADSVASC A-FIB History Current/History of A-Fib/PAF?: No Review of Systems Constitutional: Denies: Chills, Fever, Malaise, Night Sweats, Weakness, Fatigue, Weight Loss, Lethargy, Other Eyes: Denies: Pain, Vision change, Conjunctivae inflammation, Eyelid inflammation, Redness, Other ENT: Denies: Head Aches, Ear Pain, Dysphagia, Sinus Congestion, Post Nasal Drip, Sore Throat, Epistaxis, Other Symptoms Skin: Denies: Rash, Lesions, Jaundice, Bruising, Itching, Dry, Breakdown, Nail Changes, Other Pulmonary: Denies: Dyspnea, Cough, Pleuritic Chest Pain, Other Symptoms Cardiovascular: Denies: Chest Pain, Palpitations, Orthopnea, Paroxysmal Noc. Dyspnea, Edema, Lt Headedness, Other Symptoms Gastrointestinal: Reports: Diarrhea; Denies: Nausea, Vomiting, Abdominal Pain, Constipation, Melena, Hematochezia, Other Symptoms Genitourinary: Denies: Dysuria, Frequency, Incontinence, Hematuria, Retention, Other Symptoms Hematologic: Denies: Bruising, Bleeding Excessively, Petecchia, Purpura, Enlarged Lymph Nodes, Other Hematologic Endocrine: Denies: Polydipsia, Polyphagia, Polyuria, Heat Intolerance, Cold Intolerance, Other Endocrine Sx Musculoskeletal: Denies: Neck Pain, Back Pain, Shoulder Pain, Arm Pain, Hand Pain, Leg Pain, Foot Pain, Joint Pain, Muscle Pain, Spasms, Other Symptoms Neurological: Denies: Weakness, Numbness, Incoordination, Change in speech, Confusion, Seizures, Other Symptoms Psych: Denies: Mood Normal, Anxiety, Depression, Memory Issues, Thoughts of Self Harm, Anger, Thoughts of Harming Other, Other Psych Physical Examination General Exam: Positive: Alert Eye Exam: Positive: PERRLA, Conjunctiva & lids normal Neck Exam: Positive: Supple Chest Exam: Positive: Clear to auscultation, Normal air movement Heart Exam: Positive: Rate Normal, Normal S1, Normal S2 Abdomen Exam: Positive: Normal bowel sounds, Soft, Tenderness Extremity Exam: Positive: Normal pulses Skin Exam: Positive: Nl turgor and temperature Neuro Exam: Positive: Strength at 5/5 X4 ext, Cranial Nerves 3-12 NL Psych Exam: Positive: Mood NL, Oriented x 3 Vital Signs Vital Signs Date Time Temp Pulse Resp B/P (MAP) Pulse Ox O2 Delivery O2 Flow Rate FiO2 11/02/19 15:33 88 129/71 (90) 98 112/56 (74) 110 111/62 (78) 11/02/19 15:30 91 Room Air 11/02/19 13:30 18 11/02/19 09:39 98.2 Laboratory Data Labs 24H Laboratory Tests 2 11/02/19 09:51: Immature Granulocyte % (Auto) 0.8, Neutrophils (%) (Auto) 74.0H, Lymphocytes (%) (Auto) 19.0L, Monocytes (%) (Auto) 5.6H, Eosinophils (%) (Auto) 0.5, Basophils (%) (Auto) 0.1, Neutrophils # (Auto) 6.2, Lymphocytes # (Auto) 1.6, Monocytes # (Auto) 0.5, Eosinophils # (Auto) 0.0, Basophils # (Auto) 0.0, Nucleated Red Blood Cells % (auto) 0.0 11/02/19 09:52: Anion Gap 12, Glomerular Filtration Rate > 60.0, Calcium Level 8.1L, Magnesium Level 2.1, Total Bilirubin 1.2H, Direct Bilirubin 0.7H, Aspartate Amino Transf (AST/SGOT) 83H, Alanine Aminotransferase (ALT/SGPT) 75, Alkaline Phosphatase 135H, Total Protein 7.0, Albumin 2.3L, Albumin/Globulin Ratio 0.49L, Lipase 209, Ethyl Alcohol Level < 0.003 11/02/19 16:06: Lactic Acid Level 4.2*H CBC/BMP Laboratory Tests 11/02/19 09:51 11/02/19 09:52 Microbiology Microbiology 11/02/19 Blood Culture, Received Pending 11/02/19 Blood Culture, Received Pending Problems (1) Multifocal pneumonia Status: Acute Problem Text: 64 years old white male with past medical history of multiple medical problems of diabetes mellitus type 2, hyperlipidemia, hypertension, posttraumatic stress syndrome, depression, anxiety, chronic heart murmur, hypertension, COPD, aortic aneurysm, alcoholism, knee osteoarthritis, chronic thrombocytopenia, hyperlipidemia, and chronic lower extremity numbness was found covered in feces by his landlord and lying on the floor. Hence, the ambulance was called and he was brought to the emergency room. Patient denies any compla int. As per patient, he has not been drinking since he was discharged and he doesn't appear in the withdrawal. He is not sure why he was brought to emergency room' Patient's vitals are stable. Heart rate of 88. Blood patient 98, blood pressure 129 with 71. WBC count 8.4, hemoglobin 11.9, platelets 222. Electrolytes are normal except potassium is 2.8, BUN 9, creatinine 0.64. Alcohol level Less than 0.003 and chest x-ray showed multifocal pneumonia [facility] Start IV fluids normal saline with KCl 40 mg at 100 mL per hour Replenish potassium with 40 mEq by mouth 1 dose . We will continue Rocephin and Zithromax. First dose was given in ED Xopenex every 4 hours when necessary for shortness of breath and COPD Oxygen support to keep pulse ox more than 88 DVT prophylaxis with bilateral SCDs Diet is consistent carbohydrate diet Activity as tolerated (2) Diarrhea Status: Acute Problem Text: Unknown etiology, but since he was recently discharged from hospital, Will lock and his stool for C. difficile and GI panel IV fluids have been started , Questran 1 packet by mouth 3 times a day to control diarrhea Further depends on pending. C. difficile screen and GI manager lsw electrolytes and replenish as needed (3) Hypokalemia Status: Resolved Problem Text: Most likely secondary to diarrhea Potassium replacement orders have been written Repeat potassium level at midnight And also add a magnesium level stat CBC, CMP in a.m. (4) COPD (chronic obstructive pulmonary disease) Status: Chronic Problem Text: DuoNeb every 4 hours when necessary Will restart home meds from a.m. (5) Diabetes mellitus Status: Chronic Problem Text: Fingerstick blood sugar every before meals and at bedtime Will also start sliding scale coverage Home meds, once patient is stable Plan / VTE VTE Prophylaxis Ordered?: Yes ZOIE GIFFORD MD Nov 02, 2019 17:18
[2019-11-02] MEDS: KCL 40MEQ in NS 1000ML 1,000 ML IV SCH (17:56)
[2019-11-02 17:57] LABS: INR 1.56; PROTHROMBIN TIME 18.4 SECONDS (11.8-14.0)
[2019-11-02 17:58] LABS: PARTIAL THROMBOPLASTIN TIME 30.5 SECONDS (25.0-38.4)
[2019-11-02 18:00] VITALS: BP 111/63
[2019-11-02] MEDS: CHOLESTYRAMINE 4 GM PWD PKT PO SCH (20:52)
[2019-11-02] MEDS ORDERED: HumaLOG INSULIN (NovoLOG) PER UNIT SC SCH (21:00)
[2019-11-02] MEDS ORDERED: HEPARIN SOD (PORCINE) 5000 UNITS/ML VIAL (J1644 PER 1000UNITS) SC SCH (21:00)
[2019-11-02] MEDS: IPRATROPIUM 0.5MG/ALBUTEROL 2.5MG INH SOL UD 3ML (DUONEB)(J7620) NEB PRN (22:34)
[2019-11-02 22:36] VITALS: BP 138/75
[2019-11-02 22:40] VITALS: BP 138/75
[2019-11-02] MEDS ORDERED: guaiFENesin/CODEINE SYRUP 5 ML UDC PO ONE (23:15)
[2019-11-02] MEDS: POTASSIUM CHL PWD 20 MEQ PACKET PO ONE ×2 (23:15→23:34)
[2019-11-03] VITALS (28 sets, daily range): BP systolic 107–174; BP diastolic 72–87; O2SAT 76–98
[2019-11-03] MEDS ORDERED: KETOROLAC TROMETHAMINE 10 MG TAB PO ONE
[2019-11-03] MEDS ORDERED: KETOROLAC 30 MG/ML VIAL (J1885) IV ONE (00:15)
[2019-11-03 00:53] LABS: ABG BASE EXCESS -4.7 (-2.0-2.0); ABG HCO3 16.4 MEQ/L (22.0-26.0); ABG O2 SATURATION 85.9 % (95.0-99.0); ABG PARTIAL PRESSURE CO2 20.8 mmHg (35.0-45.0); ABG PARTIAL PRESSURE O2 51.1 mmHg (75.0-100.0); ABG STANDARD HCO3 20.4 MEQ/L (22.0-26.0); ABG pH (ARTERIAL) 7.514 UNITS (7.350-7.450)
[2019-11-03] MEDS: LORazepam 2 MG/ML VIAL (J2060) IV PRN ×5 (01:47→20:57)
[2019-11-03 05:40] LABS: HEMATOCRIT 29.1 % (42.0-52.0); MEAN CORPUSCULAR HEMOGLOBIN 32.7 pg (27.0-33.0); PLATELET COUNT, AUTOMATED 166 10^3/uL (150-450); RED BLOOD COUNT 3.03 10^6/uL (4.30-6.10); WHITE BLOOD COUNT 8.4 10^3/uL (4.0-10.0)
--- NOTE | 2019-11-03 05:46 | ECGEPIP ---
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
--- NOTE | 2019-11-03 05:54 | IPNPDOC ---
Text Note Date of Service The patient was seen on 11/03/19. NOTE I was called to bedside urgently to evaluate for increasing agitation and inc reasing shortness of breath. Patient is a known alcoholic and was refusing to wear his oxygen. He was asking for beer of the nurse and myself, refusing to wear his oxygen. O2 sat dropped into the low 80s. Had gotten ativan per CIWA protocol. Required a Venti mask. He was transferred to PCU for continuous pulse ox and telemtery monitoring, as well for the increased hypoxia and agitation. Upon reassessment, he has been in the 90s on the Venti mask at 15 L and an FiO2 of 50%. He has been less agitated, and is currently stable. VS,Fishbone, I+O VS, Fishbone, I+O Laboratory Tests 11/02/19 09:51 11/02/19 09:52 11/02/19 23:36 Vital Signs Date Time Temp Pulse Resp B/P (MAP) Pulse Ox O2 Delivery O2 Flow Rate FiO2 11/03/19 04:00 98.8 74 24 122/87 (99) 98 Nasal Cannula 4.0 11/03/19 00:41 50 I&O- Last 24 Hours up to 6 AM 11/03/19 06:00 Intake Total 1645 ml Output Total 0 ml Balance 1645 ml GME ATTESTATION GME ATTESTATION My faculty preceptor for this patient encounter was physically present during the encounter and was fully available. All aspects of the patient interview, examination, medical decision making process, and medical care plan development were reviewed and approved by the faculty preceptor. The faculty preceptor is aware and concurs with the plan as stated in the body of this note and will attest to such by his/her cosignature. SOM HOANG D.O. Nov 03, 2019 05:54
[2019-11-03 06:02] LABS: ALBUMIN 1.8 GM/DL (3.2-5.2); ALT/SGPT 50 U/L (12-78); BILIRUBIN,TOTAL 0.9 MG/DL (0.2-1.0); BLOOD UREA NITROGEN 5 MG/DL (7-18); CALCIUM LEVEL 7.3 MG/DL (8.8-10.2); CARBON DIOXIDE LEVEL 21 MEQ/L (21-32); CHLORIDE LEVEL 111 MEQ/L (98-107); GLOMERULAR FILTRATION RATE > 60.0 (>49); GLUCOSE, FASTING 88 MG/DL (70-100); MAGNESIUM LEVEL 1.8 MG/DL (1.8-2.4); POTASSIUM SERUM 3.3 MEQ/L (3.5-5.1); SODIUM LEVEL 139 MEQ/L (136-145); TOTAL PROTEIN 5.9 GM/DL (6.4-8.2)
[2019-11-03 06:09] LABS: HEMOGLOBIN 9.9 g/dl (13.5-17.5)
[2019-11-03] MEDS: KCL 40MEQ in NS 1000ML 1,000 ML IV SCH ×2 (06:10→19:27)
[2019-11-03] MEDS: CHOLESTYRAMINE 4 GM PWD PKT PO SCH (09:00)
[2019-11-03] MEDS: ATORVASTATIN 20 MG TAB PO SCH (09:00)
[2019-11-03] MEDS: MULTIVITAMINS/MINERALS THERAP 1 TAB PO SCH (09:00)
[2019-11-03] MEDS: MONTELUKAST 10 MG TAB PO SCH (09:00)
[2019-11-03] MEDS: POTASSIUM CHLORIDE 10 MEQ SR TABLET PO SCH (09:00)
[2019-11-03] MEDS: PREGABALIN 75 MG CAP(LYRICA) PO SCH (09:00)
[2019-11-03] MEDS: ASPIRIN 81 MG ENTERIC TAB PO SCH (09:00)
[2019-11-03] MEDS: MELOXICAM (MOBIC) 7.5 MG TAB PO SCH (09:00)
--- NOTE | 2019-11-03 11:13 | IPNPDOC ---
Subjective Date Seen The patient was seen on 11/03/19. Subjective Chief Complaint/HPI Patient very agitated last night, possible left I'll call withdrawal and was started on multiple medications including CIWA protocol. Patient is sedated at the present time, unable to obtained any history As per nursing. There was possible risk of aspiration secondary to his current medical status General: Reports: ROS Unobtainable Objective Physical Examination Chest Exam: Positive: Clear to auscultation, Normal air movement Heart Exam: Positive: Rate Normal, Normal S1, Normal S2 Abdomen Exam: Positive: Normal bowel sounds Extremity Exam: Positive: Normal pulses Assessment /Plan Problems (1) Alcohol withdrawal Status: Acute Problem Text: Most likely, patient is going through alcohol withdrawal as he is been keep asking for beer all night from different medical staff Patient was started on CIWA protocol as well as Ativan when necessary Secondary to risk of aspiration. We will keep him nothing by mouth Locate a speech and swallow eval Hold all by mouth meds Changes Lasix and thiamine to IV Continue IV hydration A.m. labs (2) Multifocal pneumonia Status: Acute Problem Text: . Will change IV Rocephin and Zithromax to IV Zosyn. Considering risk for possible aspiration. Hence, most likely aspiration pneumonia not community-acquired pneumonia per se Repeat chest x-ray Level work in a.m. (3) Diabetes mellitus Status: Chronic Problem Text: Fingerstick blood sugar caseinate at bedtime will be changed to every 6 hours with coverage (4) Diarrhea Status: Acute Problem Text: Stool studies pending (5) Hypokalemia Status: Acute Problem Text: Potassium supplement was ordered but it was by mouth Will repeat potassium at 2 PM today and order IV potassium as needed (6) COPD (chronic obstructive pulmonary disease) Status: Chronic Problem Text: Continue present meds including nebulizers Plan/VTE VTE Prophylaxis Ordered?: Yes VS, I&O, 24H, Fishbone Vital Signs/I&O Vital Signs Date Time Temp Pulse Resp B/P (MAP) Pulse Ox O2 Delivery O2 Flow Rate FiO2 11/03/19 09:00 100.0 103 43 107/80 (89) 89 Nasal Cannula 4.0 11/03/19 07:00 50 I&O- Last 24 Hours up to 6 AM 11/03/19 06:00 Intake Total 1645 ml Output Total 0 ml Balance 1645 ml Laboratory Data 24H LABS Laboratory Tests 2 11/02/19 16:06: Lactic Acid Level 4.2*H 11/02/19 17:27: Prothrombin Time 18.4H, Prothromb Time International Ratio 1.56, Activated Partial Thromboplast Time 30.5 11/02/19 20:36: Lactic Acid Followup at 4 Hours 2.7*H 11/02/19 20:51: Bedside Glucose (Misc Panel) 88 11/03/19 00:21: Blood Gas Bicarbonate Standard 20.4L, Arterial Blood pH 7.514H, Arterial Blood Partial Pressure CO2 20.8L, Arterial Blood Partial Pressure O2 51.1L, Arterial Blood Total CO2 17.0L, Arterial Blood HCO3 16.4L, Arterial Blood Base Excess - 4.7L, Arterial Blood Oxygen Saturation 85.9L 11/03/19 05:10: Nucleated Red Blood Cells % (auto) 0.0, Anion Gap 7L, Glomerular Filtration Rate > 60.0, Calcium Level 7.3L, Magnesium Level 1.8, Total Bilirubin 0.9, Aspartate Amino Transf (AST/SGOT) 63H, Alanine Aminotransferase (ALT/SGPT) 50, Alkaline Phosphatase 101, Total Protein 5.9L, Albumin 1.8#L, Albumin/Globulin Ratio 0.44L CBC/BMP Laboratory Tests 11/02/19 23:36 11/03/19 05:10 Microbiology Microbiology 11/03/19 Blood Culture, Received Pending 11/03/19 Blood Culture, Received Pending 11/02/19 Gastrointestinal Tract Panel (PCR) - Final, Complete 11/02/19 Blood Culture, Received Pending 11/02/19 Blood Culture, Received Pending ZOIE GIFFORD MD Nov 03, 2019 11:13
[2019-11-03] MEDS ORDERED: GLUCOSE 4 GM CHEW TABLET PO PRN (11:30)
[2019-11-03] MEDS ORDERED: GLUCAGON FOR INJ 1 MG VIAL (J1610) SC PRN (11:30)
[2019-11-03] MEDS ORDERED: DEXTROSE 50% 50 ML SYRINGE IV PRN (11:30)
[2019-11-03] MEDS: HumaLOG INSULIN (NovoLOG) PER UNIT SC SCH ×2 (12:00→17:53)
[2019-11-03] MEDS: PIPERACILLIN/TAZOBACTAM SOD 3.375 GM in D5W MINI-BAG PLUS 50 ML IV SCH ×2 (12:15→17:43)
[2019-11-03] MEDS: THIAMINE HCL 200 MG/2 ML VIAL (J3411) IV SCH (13:30)
[2019-11-03] MEDS: FOLIC ACID 1 MG in NS 50 ML IV SCH (13:31)
[2019-11-03] MEDS: PANTOPRAZOLE 40MG INJ (PROTONIX) (C9113) IV SCH (13:31)
[2019-11-03] MEDS ORDERED: cefTRIAXone SOD 1 GM in D5W MINI-BAG PLUS 50 ML IV SCH (16:00)
[2019-11-03] MEDS ORDERED: AZITHROMYCIN INJ 500 MG, VIAL MATE ADAPTER 1 EACH in D5W 250 ML IV SCH (17:00)
[2019-11-03] MEDS: ACETAMINOPHEN 650 MG SUPP PR PRN (20:58)
[2019-11-03 21:54] LABS: ABG BASE EXCESS -2.9 (-2.0-2.0); ABG HCO3 19.1 MEQ/L (22.0-26.0); ABG O2 SATURATION 89.4 % (95.0-99.0); ABG PARTIAL PRESSURE CO2 25.2 mmHg (35.0-45.0); ABG PARTIAL PRESSURE O2 54.3 mmHg (75.0-100.0); ABG STANDARD HCO3 21.9 MEQ/L (22.0-26.0); ABG TOTAL CO2 19.9 MEQ/L (23.0-31.0); ABG pH (ARTERIAL) 7.497 UNITS (7.350-7.450)
[2019-11-04] VITALS (37 sets, daily range): BP systolic 98–193; BP diastolic 58–101; O2SAT 77–99
[2019-11-04] MEDS: LORazepam 2 MG/ML VIAL (J2060) IV PRN ×4 (01:30→17:50)
[2019-11-04] MEDS: PIPERACILLIN/TAZOBACTAM SOD 3.375 GM in D5W MINI-BAG PLUS 50 ML IV SCH ×2 (01:35→05:39)
[2019-11-04] MEDS: KCL 40MEQ in NS 1000ML 1,000 ML IV SCH ×2 (05:39→09:25)
[2019-11-04] MEDS: HumaLOG INSULIN (NovoLOG) PER UNIT SC SCH ×4 (06:00→18:00)
[2019-11-04 06:03] LABS: BASO % 0.2 % (0.0-1.0); EOS # 0.2 10^3/uL (0.0-0.5); EOS % 1.8 % (0.0-3.0); HEMATOCRIT 32.8 % (42.0-52.0); HEMOGLOBIN 10.6 g/dl (13.5-17.5); LYMPH # 1.6 10^3/uL (1.5-5.0); LYMPH % 17.2 % (24.0-44.0); MEAN CORPUSCULAR HEMOGLOBIN 31.9 pg (27.0-33.0); MEAN CORPUSCULAR HGB CONC 32.3 g/dl (32.0-36.5); MEAN CORPUSCULAR VOLUME 98.8 fl (80.0-96.0); MONO # 0.4 10^3/uL (0.0-0.8); MONO % 3.9 % (0.0-5.0); NEUTROPHILS # 7.3 10^3/uL (1.5-8.5); NEUTROPHILS % 76.2 % (36.0-66.0); PLATELET COUNT, AUTOMATED 183 10^3/uL (150-450); RED BLOOD COUNT 3.32 10^6/uL (4.30-6.10); WHITE BLOOD COUNT 9.5 10^3/uL (4.0-10.0)
[2019-11-04 06:31] LABS: ALBUMIN 1.8 GM/DL (3.2-5.2); ALT/SGPT 46 U/L (12-78); BLOOD UREA NITROGEN 6 MG/DL (7-18); CALCIUM LEVEL 7.7 MG/DL (8.8-10.2); CARBON DIOXIDE LEVEL 21 MEQ/L (21-32); CHLORIDE LEVEL 115 MEQ/L (98-107); CREATININE FOR GFR 0.37 MG/DL (0.70-1.30); GLOMERULAR FILTRATION RATE > 60.0 (>49); GLUCOSE, FASTING 75 MG/DL (70-100); POTASSIUM SERUM 3.5 MEQ/L (3.5-5.1); SODIUM LEVEL 144 MEQ/L (136-145); TOTAL PROTEIN 6.2 GM/DL (6.4-8.2)
[2019-11-04] MEDS ORDERED: FUROSEMIDE 40 MG/4 ML VIAL (J1940) As Ordered ONE (08:26)
--- NOTE | 2019-11-04 08:43 | REP ---
Clinical: Respiratory failure. Comparison: 11/02/2019. Findings: Increasing diffuse bilateral infiltrates primarily involving the left mid to lower lung zone and right lower lobe are noted. Underlying chronic interstitial changes and fibrosis. No effusion. No pneumothorax. Impression: Increasing multifocal infiltrates (left greater than right). Electronically Signed by Beto Boles MD 11/04/2019 08:35 A
[2019-11-04 08:50] LABS: ABG BASE EXCESS -2.2 (-2.0-2.0); ABG HCO3 19.5 MEQ/L (22.0-26.0); ABG O2 SATURATION 77.9 % (95.0-99.0); ABG PARTIAL PRESSURE CO2 25.4 mmHg (35.0-45.0); ABG STANDARD HCO3 22.2 MEQ/L (22.0-26.0); ABG TOTAL CO2 20.3 MEQ/L (23.0-31.0); ABG pH (ARTERIAL) 7.504 UNITS (7.350-7.450)
[2019-11-04 08:53] LABS: ABG PARTIAL PRESSURE O2 41.4 mmHg (75.0-100.0)
[2019-11-04] MEDS ORDERED: VANCOMYCIN HCL 1,000 MG, VIAL MATE ADAPTER 1 EACH in D5W 250 ML IV ONE (09:00)
[2019-11-04] MEDS ORDERED: FUROSEMIDE 40 MG/4 ML VIAL (J1940) IV ONE (09:00)
[2019-11-04] MEDS ORDERED: MEROPENEM INJ 1 GM in IV 1 EA IV ONE (09:00)
[2019-11-04 09:14] LABS: CK-MB VALUE MASS 3.3 NG/ML (<3.6); CPK CREATINE PHOSPHOKINASE 204 U/L (39-308); MB/CK RELATIVE INDEX 1.62 (< OR =4); NT-PRO BNP 2156 PG/ML (<125); TROPONIN I 0.07 NG/ML (< 0.10)
[2019-11-04] MEDS: PANTOPRAZOLE 40MG INJ (PROTONIX) (C9113) IV SCH (09:32)
[2019-11-04] MEDS: THIAMINE HCL 200 MG/2 ML VIAL (J3411) IV SCH (09:41)
[2019-11-04] MEDS: MELOXICAM (MOBIC) 7.5 MG TAB PO SCH (09:47)
[2019-11-04] MEDS ORDERED: VANCOMYCIN HCL 500 MG in D5W MINI-BAG PLUS 100 ML IV ONE (10:00)
[2019-11-04] MEDS: KCL 10MEQ/100ML SWI (KRUN) 10 MEQ in IV 1 EA IV SCH ×2 (10:02→11:31)
[2019-11-04] MEDS: dexmedeTOMidine 200 MCG in IV 1 EA IV SCH ×5 (10:15→23:02)
--- NOTE | 2019-11-04 11:02 | IPNPDOC ---
Subjective Date Seen The patient was seen on 11/04/19. Subjective Chief Complaint/HPI Patient was found in acute respiratory distress this morning and he is been a very agitated all night, tried to take his mask of pulling his IV access. Patient is confused 1 through our: Withdrawal unable to obtained history from him. Patient will be transferred to ICU for intensive care and BiPAP support General: Reports: ROS Unobtainable Objective Physical Examination General Exam: Positive: Other (awake but confused, does not response to questions. I believe he does not comprehend the questions) Eye Exam: Positive: PERRLA ENT Exam: Positive: Atraumatic Neck Exam: Positive: Supple Chest Exam: Positive: Other (I O rales and rhonchi audible, right more than left) Heart Exam: Positive: Tachycardic, Normal S1, Normal S2 Abdomen Exam: Positive: Normal bowel sounds, Soft, Tenderness (. No tenderness on examination) Extremity Exam: Positive: Normal pulses Skin Exam: Positive: Other skin issue (, cold and clammy skin) Neuro Exam: Positive: Other (is all extremities. Unable to do complete neuro exam) Assessment /Plan Problems (1) Acute respiratory failure with hypoxemia Status: Acute Problem Text: Patient was found to be in acute respiratory distress. On examination this morning And most likely has developed acute respiratory failure secondary to worsening pneumonia, COPD Antibiotics will be changed to meropenem 1 g every 12 hours and vancomycin 1 g every 12 hours I had a long discussion with patient's daughter, Junior-number is [phone] and his brother Adiel Payne number is [phone] They both agree to make patient DNR/DNI as per patient's previous wishes. Keily ent's brother Adiel lives local. He came over and signed the MOLST form I had a long discussion with both of them and they both agree. If this condition does not improve in next 24 hours with the full medical support, then they will possibly think about converting patient to comfort care. Will start BiPAP 810/5 800% and rate of 12, and will repeat ABG and adjust the settings accordingly Patient will also be started on Precedex for his severe alcohol withdrawal Patient is nothing by mouth all by mouth meds were DC'd and has been changed to IV. Sputum cultures also has been ordered as well as the stool studies are still pending (2) Acute metabolic encephalopathy Status: Acute Problem Text: Acute metabolic encephalopathy secondary to severe alcohol withdrawal and infection Antibiotics as above Patient also has been started on Precedex for alcohol withdrawal and also will continue Ativan when necessary for symptom care One-to-one watch Will monitor closely and ticket dispenser changer accordingly Patient is receiving folic acid and thiamine IV (3) Pulmonary edema Status: Acute Problem Text: Most likely pulmonary edema on chest x-ray along with increasing bilateral infiltrates IV fluids have been stopped Patient received Lasix 40 mg IV push and Abraham catheter placed in . He had a 1500 mL of urine returned . We will continue monitoring patient's volume status and renal functions Echocardiogram has been ordered for tomorrow morning. 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 alcoholism (4) Diabetes mellitus Status: Chronic Problem Text: Fingerstick blood sugar caseinate at bedtime will be changed to every 6 hours with coverage (5) Diarrhea Status: Acute Problem Text: Stool studies pending (6) Hypokalemia Status: Resolved Problem Text: Resolved (7) COPD (chronic obstructive pulmonary disease) Status: Chronic Problem Text: Good on chronic exacerbation of COPD Continue nebulizer treatment The new BiPAP support Plan/VTE VTE Prophylaxis Ordered?: Yes VS, I&O, 24H, Fishbone Vital Signs/I&O Vital Signs Date Time Temp Pulse Resp B/P (MAP) Pulse Ox O2 Delivery O2 Flow Rate FiO2 11/04/19 09:28 100 11/04/19 09:28 99 BIPAP/CPAP 11/04/19 08:45 115 153/85 11/04/19 08:00 99.9 56 4.0 I&O- Last 24 Hours up to 6 AM 11/04/19 06:00 Intake Total 152.2 ml Output Total 150 ml Balance 2.2 ml Laboratory Data 24H LABS Laboratory Tests 2 11/03/19 12:45: Bedside Glucose (Misc Panel) 81 11/03/19 17:33: Bedside Glucose (Misc Panel) 81 11/03/19 21:45: Blood Gas Bicarbonate Standard 21.9L, Arterial Blood pH 7.497H, Arterial Blood Partial Pressure CO2 25.2L, Arterial Blood Partial Pressure O2 54.3L, Arterial Blood Total CO2 19.9L, Arterial Blood HCO3 19.1L, Arterial Blood Base Excess - 2.9L, Arterial Blood Oxygen Saturation 89.4L 11/04/19 01:29: Bedside Glucose (Misc Panel) 75L 11/04/19 05:19: Immature Granulocyte % (Auto) 0.7, Neutrophils (%) (Auto) 76.2H, Lymphocytes (%) (Auto) 17.2L, Monocytes (%) (Auto) 3.9, Eosinophils (%) (Auto) 1.8, Basophils (%) (Auto) 0.2, Neutrophils # (Auto) 7.3, Lymphocytes # (Auto) 1.6, Monocytes # (Auto) 0.4, Eosinophils # (Auto) 0.2, Basophils # (Auto) 0.0, Nucleated Red Blood Cells % (auto) 0.0, Anion Gap 8, Glomerular Filtration Rate > 60.0, Calcium Level 7.7L, Total Bilirubin 1.0, Aspartate Amino Transf (AST/SGOT) 73H, Alanine Aminotransferase (ALT/SGPT) 46, Alkaline Phosphatase 117, Total Creatine Kinase 204, Creatine Kinase MB 3.3, Creatine Kinase MB Relative Index 1.62, Troponin I 0.07#, VD-Ymm-S-Type Natriuretic Peptide 2156H, Total Protein 6.2L, Albumin 1.8L, Albumin/Globulin Ratio 0.41L 11/04/19 08:39: Blood Gas Bicarbonate Standard 22.2, Arterial Blood pH 7.504H, Arterial Blood Partial Pressure CO2 25.4L, Arterial Blood Partial Pressure O2 41.4*L, Arterial Blood Total CO2 20.3L, Arterial Blood HCO3 19.5L, Arterial Blood Base Excess - 2.2L, Arterial Blood Oxygen Saturation 77.9L 11/04/19 09:10: CBC/BMP Laboratory Tests 11/03/19 14:45 11/04/19 05:19 Microbiology Microbiology 11/03/19 Blood Culture - Preliminary, Resulted No growth after 24 hours . All specim... 11/03/19 Blood Culture - Preliminary, Resulted No growth after 24 hours . All specim... 11/02/19 Gastrointestinal Tract Panel (PCR) - Final, Complete 11/02/19 Blood Culture - Preliminary, Resulted No growth after 24 hours . All specim... 11/02/19 Blood Culture - Preliminary, Resulted No growth after 24 hours . All specim... ZOIE GIFFORD MD Nov 04, 2019 11:02
[2019-11-04] MEDS: FOLIC ACID 1 MG in NS 50 ML IV SCH (14:32)
--- NOTE | 2019-11-04 15:23 | PHACANCOPD ---
PHARMACY VANCOMYCIN DOSING Pt Demographics Demographics Patient Age:64 , Weight:77.400 , Gender: male Adjusted Body Weight Date: 11/04/19, Adjusted Body Weight: Kg Events Past 24 Hours Events Past 24 Hours: YES: Other Vancomycin Vancomycin Target Ranges: 15-20 mcg/ml Vancomycin Load Y/N: Yes Load Dose Date Time Vancomycin Load Dose: 1500 mg Date: 11/04/19 Time: 0900 Vancomycin Dose Date: 11/04/19. Current Vancomycin Dose: [1g IV q8h] Intermittent Dosing?: No Labs Labs Item Value Date Time Oxygen Delivery Method NIPPV (BIPAP/CPAP) 11/04/19 1036 White Blood Count 8.4 10^3/uL 11/02/19 0951 Red Blood Count 3.03 10^6/uL L 11/03/19 0510 White Blood Count 8.4 10^3/uL 11/03/19 0510 White Blood Count 9.5 10^3/uL 11/04/19 0519 Creatinine 0.40 MG/DL L 11/03/19 0510 Blood Urea Nitrogen 5 MG/DL L 11/03/19 0510 Blood Urea Nitrogen 6 MG/DL L 11/04/19 0519 Creatinine 0.37 MG/DL L 11/04/19 0519 Procalcitonin 0.10 NG/ML 11/04/19 0519 Micro Microbiology 11/03/19 Blood Culture - Preliminary, Resulted No growth after 24 hours . All specim... 11/03/19 Blood Culture - Preliminary, Resulted No growth after 24 hours . All specim... 11/02/19 Gastrointestinal Tract Panel (PCR) - Final, Complete 11/02/19 Blood Culture - Preliminary, Resulted No growth after 24 hours . All specim... 11/02/19 Blood Culture - Preliminary, Resulted No growth after 24 hours . All specim... Creatinine Clearance Date:11/04/19. Est Creatinine Clearance: [>100 ml/min]. Pending Labs None Assessment and Plan Maintaining Current Dose?: Yes Reason for dose change: No Dose Change Pharmacist Note Pharmacist Note Date: 11/04/19. Pharmacist note: Day #1 empiric IV vancomycin initiated with a 1500mg LD, followed by a maintenance regimen of 1g IV Q8H for the treatment of acute respiratory distress. Pt has been febrile within the past 24hrs, WBC WNL, procalcitonin WNL, MRSA PCR negative. CXR today showed "Increasing diffuse bilateral infiltrates primarily involving the left mid to lower lung zone and right lower lobe are noted." Pt transitioned to higher level of care in ICU for further management. No trough levels scheduled at this time. Will continue to monitor. DANIELLE WALLACE PHARMACY Nov 04, 2019 15:23
[2019-11-04] MEDS: VANCOMYCIN HCL 1,000 MG, VIAL MATE ADAPTER 1 EACH in D5W 250 ML IV SCH (17:21)
[2019-11-04 20:53] LABS: ABG HCO3 19.3 MEQ/L (22.0-26.0); ABG O2 SATURATION 96.6 % (95.0-99.0); ABG PARTIAL PRESSURE CO2 23.3 mmHg (35.0-45.0); ABG PARTIAL PRESSURE O2 84.1 mmHg (75.0-100.0); ABG STANDARD HCO3 22.8 MEQ/L (22.0-26.0); ABG pH (ARTERIAL) 7.535 UNITS (7.350-7.450)
[2019-11-04] MEDS: MEROPENEM INJ 1 GM in IV 1 EA IV SCH (21:23)
[2019-11-05] VITALS (43 sets, daily range): BP systolic 106–166; BP diastolic 56–97; O2SAT 90–99
[2019-11-05] MEDS: VANCOMYCIN HCL 1,000 MG, VIAL MATE ADAPTER 1 EACH in D5W 250 ML IV SCH ×2 (01:19→09:47)
[2019-11-05] MEDS: dexmedeTOMidine 200 MCG in IV 1 EA IV SCH ×7 (02:59→23:49)
[2019-11-05 05:27] LABS: BASO % 0.2 % (0.0-1.0); EOS # 0.2 10^3/uL (0.0-0.5); EOS % 1.7 % (0.0-3.0); HEMATOCRIT 32.8 % (42.0-52.0); HEMOGLOBIN 10.8 g/dl (13.5-17.5); LYMPH # 1.3 10^3/uL (1.5-5.0); LYMPH % 14.1 % (24.0-44.0); MEAN CORPUSCULAR HGB CONC 32.9 g/dl (32.0-36.5); MEAN CORPUSCULAR VOLUME 97.3 fl (80.0-96.0); MONO # 0.3 10^3/uL (0.0-0.8); MONO % 3.6 % (0.0-5.0); NEUTROPHILS # 7.3 10^3/uL (1.5-8.5); NEUTROPHILS % 79.8 % (36.0-66.0); PLATELET COUNT, AUTOMATED 157 10^3/uL (150-450); RED BLOOD COUNT 3.37 10^6/uL (4.30-6.10); WHITE BLOOD COUNT 9.1 10^3/uL (4.0-10.0)
[2019-11-05 05:46] LABS: ABG BASE EXCESS 0.3 (-2.0-2.0); ABG HCO3 22.7 MEQ/L (22.0-26.0); ABG O2 SATURATION 97.5 % (95.0-99.0); ABG PARTIAL PRESSURE CO2 29.5 mmHg (35.0-45.0); ABG PARTIAL PRESSURE O2 96.7 mmHg (75.0-100.0); ABG STANDARD HCO3 24.7 MEQ/L (22.0-26.0); ABG TOTAL CO2 23.6 MEQ/L (23.0-31.0); ABG pH (ARTERIAL) 7.504 UNITS (7.350-7.450)
[2019-11-05 05:59] LABS: ALBUMIN 1.8 GM/DL (3.2-5.2); ALT/SGPT 39 U/L (12-78); BILIRUBIN,TOTAL 1.2 MG/DL (0.2-1.0); BLOOD UREA NITROGEN 10 MG/DL (7-18); CARBON DIOXIDE LEVEL 25 MEQ/L (21-32); CHLORIDE LEVEL 112 MEQ/L (98-107); CREATININE FOR GFR 0.49 MG/DL (0.70-1.30); GLOMERULAR FILTRATION RATE > 60.0 (>49); GLUCOSE, FASTING 121 MG/DL (70-100); POTASSIUM SERUM 3.2 MEQ/L (3.5-5.1); SODIUM LEVEL 144 MEQ/L (136-145); TOTAL PROTEIN 6.4 GM/DL (6.4-8.2)
[2019-11-05] MEDS: HumaLOG INSULIN (NovoLOG) PER UNIT SC SCH ×5 (06:00→23:49)
[2019-11-05] MEDS: IPRATROPIUM 0.5MG/ALBUTEROL 2.5MG INH SOL UD 3ML (DUONEB)(J7620) NEB PRN ×2 (08:09→12:00)
[2019-11-05] MEDS: PANTOPRAZOLE 40MG INJ (PROTONIX) (C9113) IV SCH (08:55)
[2019-11-05] MEDS: MEROPENEM INJ 1 GM in IV 1 EA IV SCH ×2 (08:55→21:41)
[2019-11-05] MEDS: THIAMINE HCL 200 MG/2 ML VIAL (J3411) IV SCH (08:56)
[2019-11-05 10:04] LABS: ABG BASE EXCESS 0.1 (-2.0-2.0); ABG HCO3 21.7 MEQ/L (22.0-26.0); ABG O2 SATURATION 93.9 % (95.0-99.0); ABG PARTIAL PRESSURE CO2 26.1 mmHg (35.0-45.0); ABG STANDARD HCO3 24.5 MEQ/L (22.0-26.0); ABG TOTAL CO2 22.5 MEQ/L (23.0-31.0); ABG pH (ARTERIAL) 7.537 UNITS (7.350-7.450)
--- NOTE | 2019-11-05 10:27 | IPNPDOC ---
Subjective Date Seen The patient was seen on 11/05/19. Subjective Chief Complaint/HPI Patient is comfortable stable. Heart rate and blood pressure is stable but her respiratory rate is still elevated. He is on BiPAP support, spoke with both his daughter on the phone and his brother at bedside General: Reports: ROS Unobtainable Objective Physical Examination General Exam: Positive: Other (awake but confused, does not response to questions. I believe he does not comprehend the questions) Eye Exam: Positive: PERRLA ENT Exam: Positive: Atraumatic Neck Exam: Positive: Supple Chest Exam: Positive: Other (I O rales and rhonchi audible, right more than left) Heart Exam: Positive: Tachycardic, Normal S1, Normal S2 Abdomen Exam: Positive: Normal bowel sounds, Soft, Tenderness (. No tenderness on examination) Extremity Exam: Positive: Normal pulses Skin Exam: Positive: Other skin issue (, cold and clammy skin) Neuro Exam: Positive: Other (is all extremities. Unable to do complete neuro exam) Assessment /Plan Problems (1) Acute respiratory failure with hypoxemia Status: Acute Problem Text: Patient was found to be in acute respiratory distress. On examination this morning And most likely has developed acute respiratory failure secondary to worsening pneumonia, COPD Antibiotics will be changed to meropenem 1 g every 12 hours and vancomycin 1 g every 12 hours I had a long discussion with patient's daughter, Junior-number is [phone] and his brother Adiel Payne number is [phone] They both agree to make patient DNR/DNI as per patient's previous wishes. Ana Rosa parnell's brother Adiel lives local. He came over and signed the MOLST form I had a long discussion with both of them and they both agree. If this condition does not improve in next 24 hours with the full medical support, then they will possibly think about converting patient to comfort care. Patient is clinically stable. His vital signs are stable. Respiratory respiratory rate which is about 30/m Is tolerating BiPAP very well. Blood Gas is acceptable and will continue the same respiratory support Will DC vancomycin. His MRSA screen is negative, but will continue Merrem 1 g IV every 12 hours Discussed with patient's daughter over the phone and his brother at bedside, patient is clinically stable and hopefully he might pull through with this critical time. Patient will probably require placement once he is clinically stable and ready to be discharged. Sputum cultures pending Repeat chest x-ray ordered (2) Acute metabolic encephalopathy Status: Acute Problem Text: Acute metabolic encephalopathy secondary to severe alcohol withdrawal and infection . Continue meropenem as per orders Continue Precedex for sedation. The patient has completely recovered from acute alcohol withdrawal One-to-one watch in progress Patient is receiving folic acid and thiamine IV (3) Pulmonary edema Status: Acute Problem Text: Most likely pulmonary edema on chest x-ray along with increasing bilateral infiltrates IV fluids have been stopped Patient received Lasix 40 mg IV push and Abraham catheter placed in . He had a 1500 mL of urine returned . We will continue monitoring patient's volume status and renal functions . We will repeat chest x-ray today to evaluate patient's clinical status Echocardiogram has been ordered for tomorrow morning. 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 IV have been ordered (7) COPD (chronic obstructive pulmonary disease) Status: Chronic Problem Text: Good on chronic exacerbation of COPD Continue nebulizer treatment The new BiPAP support Plan/VTE VTE Prophylaxis Ordered?: Yes VS, I&O, [facility]H, [facility] Vital Signs/I&O Vital Signs Date Time Temp Pulse Resp B/P (MAP) Pulse Ox O2 Delivery O2 Flow Rate FiO2 11/05/19 08:09 65 36 11/05/19 08:06 60 11/05/19 06:01 123/62 (82) 99 NIPPV (BIPAP/CPAP) 11/05/19 04:01 98.7 11/04/19 16:00 15.0 I&O- Last 24 Hours up to 6 AM 11/05/19 06:00 Intake Total 1226.2 ml Output Total 3175 ml Balance -1948.8 ml Laboratory Data 24H LABS Laboratory Tests 2 11/04/19 11:51: Bedside Glucose (Misc Panel) 126H 11/04/19 17:55: Bedside Glucose (Misc Panel) 123H 11/04/19 20:39: Blood Gas Bicarbonate Standard 22.8, Arterial Blood pH 7.535H, Arterial Blood Partial Pressure CO2 23.3L, Arterial Blood Partial Pressure O2 84.1, Arterial Blood Total CO2 20.0L, Arterial Blood HCO3 19.3L, Arterial Blood Base Excess - 2.0, Arterial Blood Oxygen Saturation 96.6 11/05/19 00:44: Bedside Glucose (Misc Panel) 108 11/05/19 04:54: Immature Granulocyte % (Auto) 0.6, Neutrophils (%) (Auto) 79.8H, Lymphocytes (%) (Auto) 14.1L, Monocytes (%) (Auto) 3.6, Eosinophils (%) (Auto) 1.7, Basophils (%) (Auto) 0.2, Neutrophils # (Auto) 7.3, Lymphocytes # (Auto) 1.3L, Monocytes # (Auto) 0.3, Eosinophils # (Auto) 0.2, Basophils # (Auto) 0.0, Nucleated Red Blood Cells % (auto) 0.0, Anion Gap 7L, Glomerular Filtration Rate > 60.0, Calcium Level 8.0L, Total Bilirubin 1.2H, Aspartate Amino Transf (AST/SGOT) 62H, Alanine Aminotransferase (ALT/SGPT) 39, Alkaline Phosphatase 111, Total Protein 6.4, Albumin 1.8L, Albumin/Globulin Ratio 0.39L 11/05/19 05:24: Blood Gas Bicarbonate Standard 24.7, Arterial Blood pH 7.504H, Arterial Blood Partial Pressure CO2 29.5L, Arterial Blood Partial Pressure O2 96.7, Arterial Blood Total CO2 23.6, Arterial Blood HCO3 22.7, Arterial Blood Base Excess 0.3, Arterial Blood Oxygen Saturation 97.5 11/05/19 09:58: Blood Gas Bicarbonate Standard 24.5, Arterial Blood pH 7.537H, Arterial Blood Partial Pressure CO2 26.1L, Arterial Blood Partial Pressure O2 66.0L, Arterial Blood Total CO2 22.5L, Arterial Blood HCO3 21.7L, Arterial Blood Base Excess 0.1, Arterial Blood Oxygen Saturation 93.9L CBC/BMP Laboratory Tests 11/05/19 04:54 Microbiology Microbiology 11/03/19 Blood Culture - Preliminary, Resulted No Growth after 48 hours. All Specime... 11/03/19 Blood Culture - Preliminary, Resulted No Growth after 48 hours. All Specime... 11/02/19 Gastrointestinal Tract Panel (PCR) - Final, Complete 11/02/19 Blood Culture - Preliminary, Resulted No Growth after 48 hours. All Specime... 11/02/19 Blood Culture - Preliminary, Resulted No Growth after 48 hours. All Specime... ZOIE GIFFORD MD Nov 05, 2019 10:27
--- NOTE | 2019-11-05 10:33 | REP ---
Clinical: Respiratory failure. Comparison: 11/04/2019. Findings: Diffuse patchy bilateral infiltrates with underlying chronic COPD and scattered fibrosis remain unchanged. The mediastinum and cardiac silhouette are stable. No pneumothorax. Skeletal structures stable. Impression: Diffuse multifocal infiltrates essentially unchanged from prior examination. Electronically Signed by Beto Boles MD 11/05/2019 10:25 A
[2019-11-05] MEDS ORDERED: NS 500 ML IV ONE (12:00)
[2019-11-05] MEDS: KCL 10MEQ/100ML SWI (KRUN) 10 MEQ in IV 1 EA IV SCH ×2 (12:09→13:49)
[2019-11-05] MEDS: FOLIC ACID 1 MG in NS 50 ML IV SCH (13:49)
[2019-11-05] MEDS: CHOLESTYRAMINE 4 GM PWD PKT PO SCH ×2 (16:00→19:18)
[2019-11-05] MEDS: PREGABALIN 75 MG CAP(LYRICA) PO SCH (19:17)
[2019-11-06] VITALS (21 sets, daily range): BP systolic 75–174; BP diastolic 63–155; O2SAT 95
[2019-11-06] MEDS: dexmedeTOMidine 200 MCG in IV 1 EA IV SCH ×7 (02:34→20:47)
[2019-11-06] MEDS ORDERED: hydrALAZINE INJ 20 MG/ML VIAL IV PRN (03:00)
[2019-11-06 04:28] LABS: BASO % 0.2 % (0.0-1.0); EOS # 0.1 10^3/uL (0.0-0.5); EOS % 1.7 % (0.0-3.0); HEMOGLOBIN 10.6 g/dl (13.5-17.5); LYMPH # 1.4 10^3/uL (1.5-5.0); LYMPH % 16.6 % (24.0-44.0); MEAN CORPUSCULAR HEMOGLOBIN 32.2 pg (27.0-33.0); MEAN CORPUSCULAR HGB CONC 33.1 g/dl (32.0-36.5); MEAN CORPUSCULAR VOLUME 97.3 fl (80.0-96.0); MONO # 0.4 10^3/uL (0.0-0.8); MONO % 4.6 % (0.0-5.0); NEUTROPHILS # 6.4 10^3/uL (1.5-8.5); NEUTROPHILS % 76.3 % (36.0-66.0); PLATELET COUNT, AUTOMATED 140 10^3/uL (150-450); RED BLOOD COUNT 3.29 10^6/uL (4.30-6.10); WHITE BLOOD COUNT 8.4 10^3/uL (4.0-10.0)
[2019-11-06 04:48] LABS: ALBUMIN 1.6 GM/DL (3.2-5.2); ALT/SGPT 36 U/L (12-78); BILIRUBIN,TOTAL 1.2 MG/DL (0.2-1.0); BLOOD UREA NITROGEN 8 MG/DL (7-18); CALCIUM LEVEL 7.5 MG/DL (8.8-10.2); CARBON DIOXIDE LEVEL 24 MEQ/L (21-32); CHLORIDE LEVEL 115 MEQ/L (98-107); CREATININE FOR GFR 0.48 MG/DL (0.70-1.30); GLOMERULAR FILTRATION RATE > 60.0 (>49); GLUCOSE, FASTING 107 MG/DL (70-100); POTASSIUM SERUM 3.4 MEQ/L (3.5-5.1); SODIUM LEVEL 147 MEQ/L (136-145); TOTAL PROTEIN 6.3 GM/DL (6.4-8.2)
[2019-11-06] MEDS ORDERED: KCL 20MEQ in NS 1000ML 1,000 ML IV SCH (05:15)
[2019-11-06] MEDS: HumaLOG INSULIN (NovoLOG) PER UNIT SC SCH ×3 (05:30→17:42)
[2019-11-06] MEDS: KCL 10MEQ/100ML SWI (KRUN) 10 MEQ in IV 1 EA IV SCH ×2 (06:03→07:45)
[2019-11-06] MEDS ORDERED: KCL 10MEQ/100ML SWI (KRUN) 10 MEQ in IV 1 EA IV ONE (07:30)
[2019-11-06] MEDS: MEROPENEM INJ 1 GM in IV 1 EA IV SCH ×2 (08:47→20:28)
[2019-11-06] MEDS: THIAMINE HCL 200 MG/2 ML VIAL (J3411) IV SCH (08:47)
[2019-11-06] MEDS: PANTOPRAZOLE 40MG INJ (PROTONIX) (C9113) IV SCH (08:47)
[2019-11-06] MEDS: MELOXICAM (MOBIC) 7.5 MG TAB PO SCH (08:47)
[2019-11-06] MEDS: ASPIRIN 81 MG ENTERIC TAB PO SCH (08:47)
[2019-11-06] MEDS: PREGABALIN 75 MG CAP(LYRICA) PO SCH ×2 (08:47→19:43)
[2019-11-06] MEDS: ATORVASTATIN 20 MG TAB PO SCH (08:47)
[2019-11-06] MEDS: POTASSIUM CHLORIDE 10 MEQ SR TABLET PO SCH (08:47)
[2019-11-06] MEDS: MONTELUKAST 10 MG TAB PO SCH (08:48)
[2019-11-06] MEDS: CHOLESTYRAMINE 4 GM PWD PKT PO SCH ×3 (08:48→19:43)
[2019-11-06] MEDS: MULTIVITAMINS/MINERALS THERAP 1 TAB PO SCH (08:48)
--- NOTE | 2019-11-06 09:58 | IPNPDOC ---
Subjective Date Seen The patient was seen on 11/06/19. Subjective Chief Complaint/HPI Rachelle is sedated with Precedex BiPAP support is on his vital signs are stable, respiratory rate is still high. Patient is DNR/DNI General: Reports: ROS Unobtainable Objective Physical Examination General Exam: Positive: Other (awake but confused, does not response to questi ons. I believe he does not comprehend the questions) Chest Exam: Positive: Other (bilateral rhonchi audible) Heart Exam: Positive: Tachycardic, Normal S1, Normal S2 Abdomen Exam: Positive: Normal bowel sounds, Soft, Tenderness (. No tenderness on examination) Extremity Exam: Positive: Normal pulses Skin Exam: Positive: Nl turgor and temperature Neuro Exam: Positive: Other (is all extremities. Unable to do complete neuro exam) Assessment /Plan Problems (1) Acute respiratory failure with hypoxemia Status: Acute Problem Text: Patient was found to be in acute respiratory distress. On examination this morning And most likely has developed acute respiratory failure secondary to worsening pneumonia, COPD Antibiotics will be changed to meropenem 1 g every 12 hours and vancomycin 1 g every 12 hours I had a long discussion with patient's daughter, Junior-number is [phone] and his brother Adiel Payne number is [phone] They both agree to make patient DNR/DNI as per patient's previous wishes. Patient's brother Adiel lives local. He came over and signed the [facility]OL[facility] form I had a long discussion with both of them and they both agree. If this condition does not improve in next 24 hours with the full medical support, then they will possibly think about converting patient to comfort care. Patient is clinically stable. His vital signs are stable. Respiratory respira tory rate which is about 30/m Is tolerating BiPAP very well. Blood Gas is acceptable and will continue the same respiratory support Will DC vancomycin. His MRSA screen is negative, but will continue Merrem 1 g IV every 12 hours Patient is a clinically status quo. He is not getting worse, but there is no significant improvement either Is stable with BiPAP, IV fluids, IV antibiotics and IV sedation with Precedex Discussed with patient's brother at the bedside. Again, if there is no improvement in the next few days, then possibly family will opt for comfort care. Continue present supportive care (2) Acute metabolic encephalopathy Status: Acute Problem Text: Acute metabolic encephalopathy secondary to severe alcohol withdrawal and infection Continue meropenem as per orders Continue Precedex for sedation till patient has completely recovered from acute alcohol withdrawal One-to-one watch was DC'd as patient is sedated Patient is receiving folic acid and thiamine IV (3) Pulmonary edema Status: Acute Problem Text: Most likely pulmonary edema on chest x-ray along with increasing bilateral infiltrates IV fluids have been stopped Patient received Lasix 40 mg IV push and Abraham catheter placed in . He had a 1500 mL of urine returned on the first aid admission to ICU Repeat chest x-ray showed persistent infiltrates, but no CHF, patient's is in negative balance of 125 mL last night, will repeat chest x-ray tomorrow Echocardiogram was ordered and is pending today (4) Diabetes mellitus Status: Chronic Problem Text: Fingerstick blood sugar caseinate at bedtime will be changed to every 6 hours with coverage (5) Diarrhea Status: Acute Problem Text: Stool studies pending (6) Hypokalemia Status: Acute Problem Text: Potassium is 3.4 and an again and potassium, chloride 10 mEq 2 ordered (7) COPD (chronic obstructive pulmonary disease) Status: Chronic Problem Text: Good on chronic exacerbation of COPD Continue nebulizer treatment The new BiPAP support Plan/VTE VTE Prophylaxis Ordered?: Yes VS, I&O, 24H, [facility] Vital Signs/I&O Vital Signs Date Time Temp Pulse Resp B/P (MAP) Pulse Ox O2 Delivery O2 Flow Rate FiO2 11/06/19 07:26 50 11/06/19 07:26 95 BIPAP/CPAP 11/06/19 06:00 64 159/79 (105) 11/06/19 04:00 98.5 35 11/04/19 16:00 15.0 I&O- Last 24 Hours up to 6 AM 11/06/19 06:00 Intake Total 1470.2 ml Output Total 985 ml Balance 485.2 ml Laboratory Data 24H LABS Laboratory Tests 2 11/05/19 09:58: Blood Gas Bicarbonate Standard 24.5, Arterial Blood pH 7.537H, Arterial Blood Partial Pressure CO2 26.1L, Arterial Blood Partial Pressure O2 66.0L, Arterial Blood Total CO2 22.5L, Arterial Blood HCO3 21.7L, Arterial Blood Base Excess 0. 1, Arterial Blood Oxygen Saturation 93.9L 11/05/19 12:02: Bedside Glucose (Misc Panel) 149H 11/05/19 17:38: Bedside Glucose (Misc Panel) 116H 11/05/19 23:40: Bedside Glucose (Misc Panel) 107 11/06/19 03:55: Immature Granulocyte % (Auto) 0.6, Neutrophils (%) (Auto) 76.3H, Lymphocytes (%) (Auto) 16.6L, Monocytes (%) (Auto) 4.6, Eosinophils (%) (Auto) 1.7, Basophils (%) (Auto) 0.2, Neutrophils # (Auto) 6.4, Lymphocytes # (Auto) 1.4L, Monocytes # (Auto) 0.4, Eosinophils # (Auto) 0.1, Basophils # (Auto) 0.0, Nucleated Red Blood Cells % (auto) 0.0, Anion Gap 8, Glomerular Filtration Rate > 60.0, Calcium Level 7.5L, Magnesium Level 2.0, Total Bilirubin 1.2H, Aspartate Amino Transf (AST/SGOT) 65H, Alanine Aminotransferase (ALT/SGPT) 36, Alkaline Phosphatase 107, Total Protein 6.3L, Albumin 1.6L, Albumin/Globulin Ratio 0.34L CBC/BMP Laboratory Tests 11/06/19 03:55 Microbiology Microbiology 11/03/19 Blood Culture - Preliminary, Resulted No Growth after 72 hours. All specime... 11/03/19 Blood Culture - Preliminary, Resulted No Growth after 72 hours. All specime... 11/02/19 Gastrointestinal Tract Panel (PCR) - Final, Complete 11/02/19 Blood Culture - Preliminary, Resulted No Growth after 72 hours. All specime... 11/02/19 Blood Culture - Preliminary, Resulted No Growth after 72 hours. All specime... ZOIE GIFFORD MD Nov 06, 2019 09:58
[2019-11-06] MEDS: IPRATROPIUM 0.5MG/ALBUTEROL 2.5MG INH SOL UD 3ML (DUONEB)(J7620) NEB PRN (11:23)
[2019-11-06] MEDS ORDERED: LORazepam 2 MG/ML VIAL (J2060) As Ordered ONE (12:37)
[2019-11-06] MEDS: FOLIC ACID 1 MG in NS 50 ML IV SCH (12:50)
[2019-11-06] MEDS: LORazepam 2 MG/ML VIAL (J2060) IV PRN ×2 (12:50→15:50)
[2019-11-06] MEDS: ACETAMINOPHEN 650 MG SUPP PR PRN (17:43)
--- NOTE | 2019-11-06 20:16 | ECHO ---
DATE OF PROCEDURE: 11/06/2019 REFERRING PHYSICIAN: Dr. Grubbs INDICATION: Congestive heart failure. Height 171 cm, weight 77 kg. DIMENSIONS: IVS: 1.9 LV: 3.7 LVPW: 1.1 LA: 3.4 Aorta: 4.2 Mitral E wave velocity: 52 A wave: 86 E prime septal: 6.1 E prime lateral: 9.7 FINDINGS: The study is of fair technical quality with very difficult visualization. The patient is in sinus rhythm. Left ventricle is of normal size and has hyperdynamic contractility. I cannot rule out subtle wall motion abnormalities but overall systolic function is normal and I estimate ejection fraction (EF) approximately 70-75%. Right ventricle also appears to be normal size and systolic function. Neither atrium was well seen. Aortic valve is sclerotic, but it has preserved mobility. There are also degenerative abnormalities of mitral valve with mild mitral annular calcifications but leaflet mobility is preserved. Tricuspid valve appears normal. Pulmonic valve was not well seen. No pericardial effusion is noted. Inferior vena cava was not visualized. Aortic root is normal. Aortic arch and abdominal aorta were not well seen. Doppler interrogation of aortic valve reveals no significant stenosis or insufficiency. Same applies for mitral valve. No significant tricuspid insufficiency was seen. Mitral inflow pattern and tissue Doppler imaging of mitral annulus revealed grade 1 diastolic dysfunction. CONCLUSIONS: 1. Study is of rather limited technical quality with difficult visualization. The patient is in sinus rhythm. 2. Normal left ventricular (LV) size with normal LV systolic function and grade 1 diastolic dysfunction. Subtle wall motion abnormalities cannot be completely ruled out. 3. Aortic sclerosis but no stenosis or insufficiency. 4. Competent mitral valve. 5. No tricuspid insufficiency. 6. Unable to estimate central venous pressure and pulmonary artery pressure. COMMENT: Subacute bacterial endocarditis (SBE) prophylaxis is not recommended.
[2019-11-06] MEDS ORDERED: KETOROLAC 30 MG/ML VIAL (J1885) IV PRN (20:45)
[2019-11-06 21:03] LABS: ABG BASE EXCESS 0.7 (-2.0-2.0); ABG HCO3 23.4 MEQ/L (22.0-26.0); ABG O2 SATURATION 93.1 % (95.0-99.0); ABG PARTIAL PRESSURE CO2 30.9 mmHg (35.0-45.0); ABG PARTIAL PRESSURE O2 66.5 mmHg (75.0-100.0); ABG STANDARD HCO3 25.1 MEQ/L (22.0-26.0); ABG TOTAL CO2 24.3 MEQ/L (23.0-31.0); ABG pH (ARTERIAL) 7.497 UNITS (7.350-7.450)
[2019-11-07] VITALS (17 sets, daily range): BP systolic 63–178; BP diastolic 58–121; O2SAT 92
[2019-11-07] MEDS: dexmedeTOMidine 200 MCG in IV 1 EA IV SCH ×5 (00:07→13:46)
[2019-11-07] MEDS ORDERED: SODIUM CHLORIDE 0.9% 1000ML IV ONE (00:30)
--- NOTE | 2019-11-07 00:40 | REPVR ---
PROCEDURE INFORMATION: Exam: US Duplex Left Lower extremity arteries or arterial bypass grafts Exam date and time: 11/06/2019 11:12 PM Age: 64 years old Clinical indication: Abnormal findings; Abnormal imaging study of limbs; Left leg; Not imaging - unable to find lle pedal pulses with beside doppler; Additional info: No pulses lle by doppler, please do at bedside TECHNIQUE: Imaging protocol: Left Real-time duplex scan of the arteries or arterial bypass grafts of the left lower extremity with 2-D olivera scale, color Doppler flow and spectral waveform analysis. COMPARISON: US EXTREMITY NON VASCUL LIMITED 10/22/2017 5:31 PM FINDINGS: Left external iliac artery: The left common iliac artery demonstrates monophasic waveform with velocity of 60 cm/s. The left external iliac artery is monophasic demonstrates velocity of 65 cm/s. Left common femoral artery: The left common femoral artery demonstrates no flow proximally and appears to be occluded with reconstitution at the distal common femoral artery with velocity of 47 cm/s with collateral revascularizing branches. Left profunda femoris artery: The left profunda artery demonstrates velocity of 44 cm/s. Left superficial femoral artery: The left superficial femoral artery is occluded with some reconstitution of the distal superficial femoral artery with velocity of 13 cm/s. Left popliteal artery: The left popliteal artery demonstrates stenoses with greater reconstitution with collateral reconstitution and velocity of 12 cm/s. Distal popliteal velocity is 14 cm/s. Left calf/foot arteries: The left anterior tibial artery demonstrates velocity of 8 cm/s. The proximal posterior tibial artery demonstrates velocity of 7 cm/s and distal velocity of 8 cm/s. The anterior tibial artery demonstrates velocity of 17 cm/s proximally and 8 cm/s distally. The dorsalis pedis demonstrates velocity of 9 cm/s. Other findings: There are monophasic waveforms throughout. Ankle/brachial indices are not obtained due to lack of pulsatility. IMPRESSION: 1. Suggestion of a left inflow stenosis with occlusion by the proximal left common femoral artery. There is reconstitution in the distal left common femoral artery. 2. Occlusion of the left superficial femoral artery with reconstitution at the level of the distal left superficial femoral artery or popliteal artery. 3. Poor runoff after reconstitution at the popliteal artery with low flow throughout the remainder of the left lower extremity. Electronically signed by: David Watson On 11/07/2019 00:39:55 AM
[2019-11-07] MEDS: ASPIRIN 300 MG SUPP PR SCH ×2 (00:54→08:29)
[2019-11-07 02:04] LABS: BASO % 0.3 % (0.0-1.0); EOS # 0.1 10^3/uL (0.0-0.5); EOS % 1.1 % (0.0-3.0); HEMATOCRIT 31.7 % (42.0-52.0); HEMOGLOBIN 10.3 g/dl (13.5-17.5); LYMPH # 1.7 10^3/uL (1.5-5.0); LYMPH % 18.8 % (24.0-44.0); MEAN CORPUSCULAR HEMOGLOBIN 32.6 pg (27.0-33.0); MEAN CORPUSCULAR HGB CONC 32.5 g/dl (32.0-36.5); MEAN CORPUSCULAR VOLUME 100.3 fl (80.0-96.0); MONO # 0.5 10^3/uL (0.0-0.8); MONO % 5.6 % (0.0-5.0); NEUTROPHILS # 6.6 10^3/uL (1.5-8.5); NEUTROPHILS % 73.6 % (36.0-66.0); PLATELET COUNT, AUTOMATED 149 10^3/uL (150-450); RED BLOOD COUNT 3.16 10^6/uL (4.30-6.10)
[2019-11-07 02:15] LABS: INR 1.89; PROTHROMBIN TIME 21.5 SECONDS (11.8-14.0)
[2019-11-07 02:36] LABS: ALBUMIN 1.6 GM/DL (3.2-5.2); ALT/SGPT 49 U/L (12-78); BILIRUBIN,TOTAL 1.4 MG/DL (0.2-1.0); BLOOD UREA NITROGEN 14 MG/DL (7-18); CALCIUM LEVEL 7.5 MG/DL (8.8-10.2); CARBON DIOXIDE LEVEL 26 MEQ/L (21-32); CHLORIDE LEVEL 120 MEQ/L (98-107); CREATININE FOR GFR 0.54 MG/DL (0.70-1.30); GLOMERULAR FILTRATION RATE > 60.0 (>49); GLUCOSE, FASTING 105 MG/DL (70-100); POTASSIUM SERUM 3.5 MEQ/L (3.5-5.1); SODIUM LEVEL 152 MEQ/L (136-145); TOTAL PROTEIN 6.4 GM/DL (6.4-8.2)
[2019-11-07] MEDS: LORazepam 2 MG/ML VIAL (J2060) IV PRN ×2 (02:42→15:01)
--- NOTE | 2019-11-07 02:44 | REPVR ---
PROCEDURE INFORMATION: Exam: CT Head Without Contrast Exam date and time: 11/07/2019 1:31 AM Age: 64 years old Clinical indication: Altered mental status/memory loss TECHNIQUE: Imaging protocol: Computed tomography of the head without contrast. Radiation optimization: All CT scans at this facility use at least one of these dose optimization techniques: automated exposure control; mA and/or kV adjustment per patient size (includes targeted exams where dose is matched to clinical indication); or iterative reconstruction. COMPARISON: CT Head without contrast 10/21/2019 10:18 AM FINDINGS: Brain: There is mild patchy low attenuation of deep white matter. There is mild prominence of the peripheral sulci. Minimal bilateral basal ganglia calcifications. Ventricles: There is mild prominence of the central ventricular system. Bones/joints: Unremarkable. No acute fracture. Sinuses: Visualized sinuses are unremarkable. No fluid levels. Mastoid air cells: Visualized mastoid air cells are well aerated. Orbits: Small shrunken left optic globe with central calcification which is unchanged. Soft tissues: Unremarkable. IMPRESSION: There has been little change from 10/21/2019 with mild chronic ischemic white matter change and atrophy. Electronically signed by: David Watson On 11/07/2019 02:43:35 AM
[2019-11-07] MEDS ORDERED: HEPARIN SOD (PORCINE) 5000 UNITS/ML VIAL (J1644 PER 1000UNITS) IV ONE (02:45)
[2019-11-07] MEDS ORDERED: HEPARIN SOD (PORCINE) 5000 UNITS/ML VIAL (J1644 PER 1000UNITS) IV PRN (02:45)
[2019-11-07] MEDS ORDERED: HEPARIN DRIP 25,000 UNITS in IV 1 EA IV SCH (02:45)
--- NOTE | 2019-11-07 02:58 | IPNPDOC ---
Text Note Date of Service The patient was seen on 11/07/19. NOTE I was called to the patient's bedside in the ICU due to not being able to feel or obtain pulses by Doppler in the left lower extremity. Arterial ultrasound was ordered and showed left inflow stenosis with occlusion of the proximal left common femoral artery with reconstitution in the distal left common femoral artery. Occlusion of the left superficial femoral artery with reconstitution at the level of the distal left superficial femoral artery or popliteal artery. Poor runoff after reconstitution of the popliteal artery with low flow throughout the remainder of the left lower extremity. I spoke to Dr. Muniz of vascular surgery, who recommended CT of the head t o rule out hemorrhagic stroke, as well as CT angiography of the chest, CT angiography of the abdomen and pelvis with CT angiography runoff of the lower extremities. She also recommended starting a heparin drip. I also spoke to Junior, the patient's daughter. We discussed how her father may not be the best candidate for surgery, especially as per Dr. Muniz it may have to be an open one. She agrees with the plan, and also agrees that aggressive measures may not be the best option for her father. HEAD CT: was negative for acute abnormality or intracranial bleed. CTA CHEST: showed minimal scattered bilateral pulmonary emboli, as well as bilateral pulmonary infiltrates. 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 Results were relayed to Dr. Muniz, and based off of imaging this is a chronic problem. If the family wishes to pursue more aggressive measures, then the patient would need to be transferred to a facility with services for not only the surgical interventions, but the recovery as well. This information was relayed to Junior, his daughter, who at this moment does not wish to transfer the patient. She would like to hold off on aggressive measures until she talks to his attending physician, Dr. Cat. Andrei MORRIS, I+O Andrei MORRIS, I+O Laboratory Tests 11/06/19 03:55 11/07/19 01:50 Vital Signs Date Time Temp Pulse Resp B/P (MAP) Pulse Ox O2 Delivery O2 Flow Rate FiO2 11/07/19 02:44 178/86 11/07/19 02:37 50 11/07/19 00:00 100.4 61 47 91 NIPPV (BIPAP/CPAP) 11/04/19 16:00 15.0 I&O- Last 24 Hours up to 6 AM 11/07/19 06:00 Intake Total 200 ml Output Total 785 ml Balance -585 ml GME ATTESTATION GME ATTESTATION My faculty preceptor for this patient encounter was physically present during the encounter and was fully available. All aspects of the patient interview, examination, medical decision making process, and medical care plan development were reviewed and approved by the faculty preceptor. The faculty preceptor is aware and concurs with the plan as stated in the body of this note and will attest to such by his/her cosignature. SOM HOANG D.O. Nov 07, 2019 02:58
--- NOTE | 2019-11-07 03:24 | REPVR ---
PROCEDURE INFORMATION: Exam: CTA Angiogram of the Abdominal Aorta and Bilateral Lower Extremities (Run-off) With IV Contrast Exam date and time: 11/07/2019 1:31 AM Age: 64 years old Clinical indication: Other: Hypoxia; Additional info: No pulses left leg TECHNIQUE: Imaging protocol: CT angiogram of the abdominal aorta, pelvis and bilateral lower extremities with IV iodinated contrast. 3D rendering: MIP and/or 3D reconstructed images were created by the technologist. Radiation optimization: All CT scans at this facility use at least one of these dose optimization techniques: automated exposure control; mA and/or kV adjustment per patient size (includes targeted exams where dose is matched to clinical indication); or iterative reconstruction. Contrast material: ISO; Contrast volume: 100 ml; Contrast route: AC; COMPARISON: CT ANGIO ABDOMINAL ARTERIES 05/12/2017 2:05 PM FINDINGS: Tubes, catheters and devices: There is a Abraham catheter in the bladder. Aorta: Mild short segment fusiform aneurysmal dilatation of the infrarenal abdominal aorta with moderate atherosclerotic calcification measuring 4.0 x 3.3 cm in diameter. There is mural thrombus with small residual lumen. Celiac trunk and mesenteric arteries: The celiac artery is patent and branches are within normal limits. There is question of mild proximal stenosis. The SMA suggests mild proximal segmental stenosis with patent branches. The JESSIE is patent. Renal arteries: Patent single bilateral renal arteries with question of mild proximal stenosis of the left renal artery. Right iliac arteries: Right common iliac artery stent which appears to be patent. Patent right internal iliac artery with question of mild proximal stenosis. The right external iliac artery demonstrates atherosclerotic irregularity without significant stenosis. Right femoral/popliteal arteries: The right common femoral artery demonstrates atherosclerotic plaque with stenosis estimated at 50-70%. The right profunda artery is patent with question of mild origin stenosis. Profunda branches are within normal limits. The proximal right superficial femoral artery is patent which gives off a collateral and then occludes. There is short segmental reconstitution of the mid superficial femoral artery with reocclusion. There is reconstitution of the proximal right popliteal artery. Reconstitution of the popliteal artery. Right infrapopliteal arteries: In the right calf, the anterior tibial artery appears to occlude proximally with proximal reconstitution a short distance later. The posterior tibial artery demonstrates mild multifocal proximal stenoses but appears to be the dominant vessel into the foot. The anterior tibial is irregular in thread-like. Left iliac arteries: There is a left common iliac artery stent which is occluded with trace reconstitution of the proximal external iliac artery, probably from internal iliac which appears to reocclude. Left femoral/popliteal arteries: Major reconstitution is at the common femoral artery level through hypogastric vessels. The left profunda artery is patent and branches appear normal. Occlusion of the left superficial femoral artery. Left infrapopliteal arteries: In the left calf, the anterior tibial artery appears to be the dominant vessel with mild multifocal stenoses in appears to extend to the dorsalis pedis. The peroneal and posterior tibial arteries are smaller with multifocal stenosis of the posterior tibial artery with thread-like extension into the hindfoot. The peroneal artery appears to extend to the distal calf. Liver: Fatty infiltration of the liver. Gallbladder and bile ducts: The gallbladder is somewhat contracted with no stones. Pancreas: Unremarkable. No mass. No ductal dilation. Spleen: Normal. No splenomegaly. Adrenals: Fullness of the left adrenal with question of a focal nodule measuring 19 x 15 mm. Kidneys and ureters: Normal. No mass. Stomach and bowel: Minimal colonic diverticulosis without diverticulitis. Slight wall thickening of the sigmoid and rectum suggesting minimal nonspecific distal colitis. Appendix: Probable visualization of a normal appendix. Bladder: Unremarkable. No mass. Reproductive: Unremarkable as visualized. Intraperitoneal space: Unremarkable. No free air. No significant fluid collection. Lymph nodes: No lymphadenopathy. Bones/joints: Metallic hardware involving the left ankle with arthrodesis. Soft tissues: Unremarkable. IMPRESSION: 1. Fatty infiltration of the liver. 2. Fullness of the left adrenal which may reflect hyperplasia with question of focal nodule measuring 19 x 15 mm. 3. Minimal colonic diverticulosis without diverticulitis. There is question of minimal nonspecific distal colitis involving the sigmoid and rectum. 4. Abraham catheter in the bladder. 5. Mild short segment fusiform aneurysmal dilatation of the infrarenal abdominal aorta measuring 4.0 x 3.3 cm in diameter. 6. Suggestion of mild proximal stenosis of the celiac artery, SMA, left renal artery and right internal iliac artery. 7. Right common femoral artery plaque with question of stenosis of 50-70%. There is occlusion of the right SFA with eventual reconstitution at the proximal popliteal artery. Right calf runoff is primarily through the posterior tibial artery. 8. Left common iliac artery stent which is occluded with trace reconstitution of the external iliac origin from the internal iliac but reoccludes. There is reconstitution of the common femoral artery through hypogastric vessels. 9. Occlusion of the left superficial femoral artery with reconstitution of the proximal popliteal artery. Left calf runoff is primarily through anterior tibial artery with thread-like and irregular posterior tibial and peroneal arteries. Electronically signed by: David Watson On 11/07/2019 03:24:26 AM
--- NOTE | 2019-11-07 03:31 | REPVR ---
PROCEDURE INFORMATION: Exam: CT Angiography Chest With Contrast Exam date and time: 11/07/2019 1:41 AM Age: 64 years old Clinical indication: Other: Hypoxia TECHNIQUE: Imaging protocol: Computed tomographic angiography of the chest with intravenous contrast. 3D rendering: MIP and/or 3D reconstructed images were created by the technologist. Radiation optimization: All CT scans at this facility use at least one of these dose optimization techniques: automated exposure control; mA and/or kV adjustment per patient size (includes targeted exams where dose is matched to clinical indication); or iterative reconstruction. Contrast material: ISO; Contrast volume: 100 ml; Contrast route: AC; COMPARISON: No relevant prior studies available. FINDINGS: Pulmonary arteries: The main pulmonary artery measures 29 mm. Minimal pulmonary embolism in the left upper lobe and in the posterior medial left lower lobe and probably small branches of the posterior right lower lobe. Aorta: The ascending thoracic aorta measures 39 mm. No gross or obvious aortic dissection is identified distal to the mid arch. Artifact and image degradation precludes detailed evaluation of the ascending thoracic aorta. Lungs: Mild bilateral patchy pulmonary infiltrates with minimal bullous change and interstitial prominence. There is minimal involvement of the lingula. Pleural space: Minimal left pleural effusion and trace right pleural effusion. Heart: RV diameter is 5.3 cm, LV diameter is 5.0 cm. RV/LV ratio is 1.1. Lymph nodes: Unremarkable. No enlarged lymph nodes. Bones/joints: Old right clavicular fracture. Soft tissues: Unremarkable. IMPRESSION: 1. Mild bilateral patchy pulmonary infiltrates with minimal bullous change and interstitial prominence. There are minimal left and trace right pleural effusions. 2. Minimal scattered bilateral pulmonary embolism. 3. Slightly elevated RV/LV ratio of 1.1. Electronically signed by: David Watson On 11/07/2019 03:31:31 AM
[2019-11-07 05:57] LABS: ALBUMIN 1.4 GM/DL (3.2-5.2); ALT/SGPT 51 U/L (12-78); BILIRUBIN,TOTAL 1.2 MG/DL (0.2-1.0); BLOOD UREA NITROGEN 14 MG/DL (7-18); CALCIUM LEVEL 7.4 MG/DL (8.8-10.2); CARBON DIOXIDE LEVEL 21 MEQ/L (21-32); CHLORIDE LEVEL 122 MEQ/L (98-107); CREATININE FOR GFR 0.43 MG/DL (0.70-1.30); GLOMERULAR FILTRATION RATE > 60.0 (>49); GLUCOSE, FASTING 120 MG/DL (70-100); POTASSIUM SERUM 3.3 MEQ/L (3.5-5.1); SODIUM LEVEL 149 MEQ/L (136-145); TOTAL PROTEIN 6.6 GM/DL (6.4-8.2)
[2019-11-07] MEDS: HumaLOG INSULIN (NovoLOG) PER UNIT SC SCH ×3 (06:00→12:00)
[2019-11-07 06:17] LABS: ABG O2 SATURATION 98.2 % (95.0-99.0)
[2019-11-07 06:19] LABS: ABG BASE EXCESS 0.1 (-2.0-2.0); ABG HCO3 22.4 MEQ/L (22.0-26.0); ABG PARTIAL PRESSURE CO2 28.8 mmHg (35.0-45.0); ABG PARTIAL PRESSURE O2 113.2 mmHg (75.0-100.0); ABG STANDARD HCO3 24.6 MEQ/L (22.0-26.0); ABG TOTAL CO2 23.3 MEQ/L (23.0-31.0); ABG pH (ARTERIAL) 7.509 UNITS (7.350-7.450)
[2019-11-07] MEDS ORDERED: KCL 10MEQ/100ML SWI (KRUN) 10 MEQ in IV 1 EA IV ONE (06:30)
--- NOTE | 2019-11-07 07:56 | REP ---
Clinical: Pneumonia. Comparison: 11/05/2019. Findings: Mediastinum and cardiac silhouette are stable. Diffuse chronic interstitial changes and fibrosis with superimposed lower lobe infiltrates. No obvious effusion. No pneumothorax. Skeletal structures are intact. Impression: Chronic changes with superimposed multifocal pneumonia. Electronically Signed by Beto Boles MD 11/07/2019 07:47 A
[2019-11-07] MEDS: THIAMINE HCL 200 MG/2 ML VIAL (J3411) IV SCH (08:29)
[2019-11-07] MEDS: PANTOPRAZOLE 40MG INJ (PROTONIX) (C9113) IV SCH (08:29)
[2019-11-07] MEDS: PREGABALIN 75 MG CAP(LYRICA) PO SCH (08:30)
[2019-11-07] MEDS: MONTELUKAST 10 MG TAB PO SCH (08:30)
[2019-11-07] MEDS: CHOLESTYRAMINE 4 GM PWD PKT PO SCH (08:30)
[2019-11-07] MEDS: MEROPENEM INJ 1 GM in IV 1 EA IV SCH (08:30)
[2019-11-07] MEDS: POTASSIUM CHLORIDE 10 MEQ SR TABLET PO SCH (08:30)
[2019-11-07] MEDS: ATORVASTATIN 20 MG TAB PO SCH (08:30)
[2019-11-07] MEDS: MULTIVITAMINS/MINERALS THERAP 1 TAB PO SCH (08:30)
--- NOTE | 2019-11-07 09:15 | CR.PDOC ---
General Date of Consultation: Nov 07, [address] Muniz HPI: 64 year old M admitted to the ICU currently on BiPAP related to worsening pneumonia and COPD with acute respiratory failure, hypoxemia, and acute m etabolic encephalopathy. The patient is unable to provide additional history, history is taken from the chart. Vascular surgery was called overnight related to inability to feel pulses in the left lower extremity. His morning nursing is reporting increasing discoloration of the toes of the left foot specifically the second, third, and fourth with dark discoloration. The patient is also noted to have a wound on the heel, foam dressing is applied. PMHx: COPD Diabetes mellitus type 2 hyperlipidemia, hypertension, posttraumatic stress syndrome, depression, anxiety, chronic heart murmur, Chronic alcohol use knee osteoarthritis, chronic thrombocytopenia, chronic lower extremity numbness PSH Ankle surgery and multiple eye surgeries SOCHX: Former smoker FAMHX: The patient is unable to provide additional history at this time. ROS: The patient is unable to provide additional history at this time. PE: GEN: 64 yo M, appears stated age. Currently on BiPAP. HEENT: Normocephalic, atraumatic.Moist mucous membranes. CHEST: Regular rate and rhythm, +S1, +S2 LUNGS: Decreased breath sounds bilaterally, rhonchi noted. EXT: The pt is noted to have a wound left heel with dressing applied. There is dark discoloration of the left second, third, and fourth toes. Pedal pulses are nonpalpable. Toes are cool to touch. Difficult to obtain Doppler signal however there is a faint DP, unable to obtain PT. A&P: 1. PAD/Left lower extremity discoloration. The patient has had lower extremity arterial ultrasound and lower extremity CTA. Results reviewed by Dr. Muniz. Currently the patient remains on heparin drip per protocol. The patient is on statin. Please refer to Dr. Muniz's note for additional recommendations. Vital Signs/I&O Vital Signs Date Time Temp Pulse Resp B/P (MAP) Pulse Ox O2 Delivery O2 Flow Rate FiO2 11/07/19 06:00 57 26 132/75 (94) 92 NIPPV (BIPAP/CPAP) 45 11/07/19 04:00 98.8 11/04/19 16:00 15.0 I&O- Last 24 Hours up to 6 AM 11/07/19 06:00 Intake Total 300 ml Output Total 1015 ml Balance -715 ml Laboratory Data Labs 24H Laboratory Tests 2 11/06/19 12:46: Bedside Glucose (Misc Panel) 103 11/06/19 17:38: Bedside Glucose (Misc Panel) 109 11/06/19 20:48: Blood Gas Bicarbonate Standard 25.1, Arterial Blood pH 7.497H, Arterial Blood Partial Pressure CO2 30.9L, Arterial Blood Partial Pressure O2 66.5L, Arterial Blood Total CO2 24.3, Arterial Blood HCO3 23.4, Arterial Blood Base Excess 0.7, Arterial Blood Oxygen Saturation 93.1L 11/06/19 23:47: Lactic Acid Level 2.2*H 11/07/19 00:03: Bedside Glucose (Misc Panel) 104 11/07/19 01:50: Immature Granulocyte % (Auto) 0.6, Neutrophils (%) (Auto) 73.6H, Lymphocytes (%) (Auto) 18.8L, Monocytes (%) (Auto) 5.6H, Eosinophils (%) (Auto) 1.1, Basophils (%) (Auto) 0.3, Neutrophils # (Auto) 6.6, Lymphocytes # (Auto) 1.7, Monocytes # (Auto) 0.5, Eosinophils # (Auto) 0.1, Basophils # (Auto) 0.0, Nucleated Red Blood Cells % (auto) 0.0, Prothrombin Time 21.5H, Prothromb Time International Ratio 1.89, Anion Gap 6L, Glomerular Filtration Rate > 60.0, Calcium Level 7.5L, Total Bilirubin 1.4H, Aspartate Amino Transf (AST/SGOT) 100H, Alanine Aminotransferase (ALT/SGPT) 49, Alkaline Phosphatase 106, Total Protein 6.4, Albumin 1.6L, Albumin/Globulin Ratio 0.33L 11/07/19 04:48: Anion Gap 6L, Glomerular Filtration Rate > 60.0, Calcium Level 7.4L, Total Bilirubin 1.2H, Aspartate Amino Transf (AST/SGOT) 99H, Alanine Aminotransferase (ALT/SGPT) 51, Alkaline Phosphatase 98, Total Protein 6.6, Albumin 1.4L, Albumin/Globulin Ratio 0.27L, Lactic Acid Followup at 4 Hours 2.2*H 11/07/19 06:00: Bedside Glucose (Misc Panel) 113 11/07/19 06:08: Blood Gas Bicarbonate Standard 24.6, Arterial Blood pH 7.509H, Arterial Blood Partial Pressure CO2 28.8L, Arterial Blood Partial Pressure O2 113.2H, Arterial Blood Total CO2 23.3, Arterial Blood HCO3 22.4, Arterial Blood Base Excess 0.1, Arterial Blood Oxygen Saturation 98.2 CBC/BMP Laboratory Tests 11/07/19 01:50 11/07/19 04:48 Microbiology Microbiology 11/03/19 Blood Culture - Preliminary, Resulted No Growth after 72 hours. All specime... 11/03/19 Blood Culture - Preliminary, Resulted No Growth after 72 hours. All specime... 11/02/19 Gastrointestinal Tract Panel (PCR) - Final, Complete 11/02/19 Blood Culture - Preliminary, Resulted No Growth after 72 hours. All specime... 11/02/19 Blood Culture - Preliminary, Resulted No Growth after 72 hours. All specime... Allergies Coded Allergies: No Known Allergies (Unverified , 07/04/19) Home Medications Scheduled Aspirin (Aspirin EC) 81 Mg Tab, 81 MG PO DAILY, (Reported) Atorvastatin Calcium (Atorvastatin Calcium) 80 Mg Tab, 80 MG PO QHS, (Reported) Cetirizine HCl (Cetirizine HCl) 10 Mg Tab, 10 MG PO DAILY, (Reported) Folic Acid (Folic Acid) 1 Mg Tablet, 1 MG PO DAILY, (Reported) Lisinopril (Lisinopril) 20 Mg Tab, 20 MG PO DAILY, (Reported) Magnesium Oxide (Magnesium) 400 Mg Capsule, 400 MG PO DAILY, (Reported) Meloxicam (Meloxicam) 7.5 Mg Tablet, 7.5 MG PO DAILY, (Reported) Montelukast Sodium (Singulair) 10 Mg Tab, 10 MG PO DAILY, (Reported) Pregabalin (Lyrica) 225 Mg Capsule, 225 MG PO BID, (Reported) Zonisamide (Zonisamide) 25 Mg Cap, 50 MG PO QHS, (Reported) Scheduled PRN Albuterol Sulfate (Ventolin Hfa) 18 Gm Hfa.aer.ad, 2 PUFF PO Q4H PRN for wheezing, (Reported) Hydrocodone/Acetaminophen (Hydrocodone-Acetamin 10-325 mg) 1 Each Tablet, 1 TAB PO QID PRN for pain, (Reported) Meclizine HCl (Meclizine HCl) 12.5 Mg Tab, 12.5 MG PO BID PRN for DIZZINESS, (Reported) Anai Quinonez Nov 07, 2019 09:15
[2019-11-07 09:25] LABS: BASO % 0.3 % (0.0-1.0); EOS # 0.1 10^3/uL (0.0-0.5); EOS % 1.5 % (0.0-3.0); HEMATOCRIT 32.1 % (42.0-52.0); HEMOGLOBIN 10.4 g/dl (13.5-17.5); LYMPH # 1.4 10^3/uL (1.5-5.0); LYMPH % 18.7 % (24.0-44.0); MEAN CORPUSCULAR HEMOGLOBIN 32.2 pg (27.0-33.0); MEAN CORPUSCULAR HGB CONC 32.4 g/dl (32.0-36.5); MEAN CORPUSCULAR VOLUME 99.4 fl (80.0-96.0); MONO # 0.4 10^3/uL (0.0-0.8); MONO % 5.1 % (0.0-5.0); NEUTROPHILS # 5.5 10^3/uL (1.5-8.5); NEUTROPHILS % 73.6 % (36.0-66.0); PLATELET COUNT, AUTOMATED 146 10^3/uL (150-450); RED BLOOD COUNT 3.23 10^6/uL (4.30-6.10); WHITE BLOOD COUNT 7.5 10^3/uL (4.0-10.0)
[2019-11-07] MEDS: FOLIC ACID 1 MG in NS 50 ML IV SCH (12:20)
--- NOTE | 2019-11-07 13:06 | IPNPDOC ---
Subjective Date Seen The patient was seen on 11/07/19. Subjective Chief Complaint/HPI Seen and examined at bedside, on BIPAP, overnight events noted. General: Reports: ROS Unobtainable, Normal Appetite Psych: Reports: Mood Normal Objective Physical Examination General Exam: Positive: Moderate Distress, Other (not responding to verbal stimuli, on BIPAP) Eye Exam: Positive: PERRLA, Conjunctiva & lids normal ENT Exam: Positive: Atraumatic, Mucous membr. moist/pink, Pharynx Normal, Tongue Midline, Nares Patent Neck Exam: Positive: Supple, +2 carotid pulse wo bruit Chest Exam: Positive: Rhonchi, Other (bilateral rhonchi audible) Heart Exam: Positive: Rate Normal, Tachycardic, Regular Rhythm, Normal S1, Normal S2 Abdomen Exam: Positive: Normal bowel sounds, Soft, Tenderness (. No tenderness on examination) Extremity Exam: Positive: Normal pulses Skin Exam: Positive: Nl turgor and temperature Neuro Exam: Positive: Other (is all extremities. Unable to do complete neuro exam) Assessment /Plan Assessment 1. acute respiratory failure with hypoxemia - secondary to worsening PNA/COPD. - patient continues on BIPAP, unable to wean off. - patient currently DNR/DNI, daughter to consider comfort care. 2. L common femoral occlusion/bilateral PE - currently on heparin drip. - vascular aware, high risk surgery and will likely need transfer to higher acuity facilty. - discussed this at length with patients daughter Junior, she is leaning towards no surgery. - to consider comfort care. 3. acute metabolic encephalopathy - secondary to severe alcohol withdrawal and infection. - continue folic acid/thiamine. - continue meropenem. 4. DM2 - FSBS/SSI coverage. Plan/VTE VTE Prophylaxis Ordered?: Yes VS, I&O, 24H, Fishbone Vital Signs/I&O Vital Signs Date Time Temp Pulse Resp B/P (MAP) Pulse Ox O2 Delivery O2 Flow Rate FiO2 11/07/19 11:55 50 11/07/19 11:55 92 BIPAP/CPAP 11/07/19 06:00 57 26 132/75 (94) 11/07/19 04:00 98.8 11/04/19 16:00 15.0 I&O- Last 24 Hours up to 6 AM 11/07/19 06:00 Intake Total 300 ml Output Total 1015 ml Balance -715 ml Laboratory Data 24H LABS Laboratory Tests 2 11/06/19 17:38: Bedside Glucose (Misc Panel) 109 11/06/19 20:48: Blood Gas Bicarbonate Standard 25.1, Arterial Blood pH 7.497H, Arterial Blood Partial Pressure CO2 30.9L, Arterial Blood Partial Pressure O2 66.5L, Arterial Blood Total CO2 24.3, Arterial Blood HCO3 23.4, Arterial Blood Base Excess 0.7, Arterial Blood Oxygen Saturation 93.1L 11/06/19 23:47: Lactic Acid Level 2.2*H 11/07/19 00:03: Bedside Glucose (Misc Panel) 104 11/07/19 01:50: Immature Granulocyte % (Auto) 0.6, Neutrophils (%) (Auto) 73.6H, Lymphocytes (%) (Auto) 18.8L, Monocytes (%) (Auto) 5.6H, Eosinophils (%) (Auto) 1.1, Basophils (%) (Auto) 0.3, Neutrophils # (Auto) 6.6, Lymphocytes # (Auto) 1.7, Monocytes # (Auto) 0.5, Eosinophils # (Auto) 0.1, Basophils # (Auto) 0.0, Nucleated Red Blood Cells % (auto) 0.0, Prothrombin Time 21.5H, Prothromb Time International Ratio 1.89, Anion Gap 6L, Glomerular Filtration Rate > 60.0, Calcium Level 7.5L, Total Bilirubin 1.4H, Aspartate Amino Transf (AST/SGOT) 100H, Alanine Aminotransferase (ALT/SGPT) 49, Alkaline Phosphatase 106, Total Protein 6.4, Albumin 1.6L, Albumin/Globulin Ratio 0.33L 11/07/19 04:48: Anion Gap 6L, Glomerular Filtration Rate > 60.0, Calcium Level 7.4L, Total Bilirubin 1.2H, Aspartate Amino Transf (AST/SGOT) 99H, Alanine Aminotransferase (ALT/SGPT) 51, Alkaline Phosphatase 98, Total Protein 6.6, Albumin 1.4L, Albumin/Globulin Ratio 0.27L, Lactic Acid Followup at 4 Hours 2.2*H 11/07/19 06:00: Bedside Glucose (Misc Panel) 113 11/07/19 06:08: Blood Gas Bicarbonate Standard 24.6, Arterial Blood pH 7.509H, Arterial Blood Partial Pressure CO2 28.8L, Arterial Blood Partial Pressure O2 113.2H, Arterial Blood Total CO2 23.3, Arterial Blood HCO3 22.4, Arterial Blood Base Excess 0.1, Arterial Blood Oxygen Saturation 98.2 11/07/19 09:11: Immature Granulocyte % (Auto) 0.8, Neutrophils (%) (Auto) 73.6H, Lymphocytes (%) (Auto) 18.7L, Monocytes (%) (Auto) 5.1H, Eosinophils (%) (Auto) 1.5, Basophils (%) (Auto) 0.3, Neutrophils # (Auto) 5.5, Lymphocytes # (Auto) 1.4L, Monocytes # (Auto) 0.4, Eosinophils # (Auto) 0.1, Basophils # (Auto) 0.0, Nucleated Red Blood Cells % (auto) 0.0, Activated Partial Thromboplast Time 151.0*H 11/07/19 12:12: Bedside Glucose (Misc Panel) 101 CBC/BMP Laboratory Tests 11/07/19 01:50 11/07/19 04:48 11/07/19 09:11 Microbiology Microbiology 11/03/19 Blood Culture - Preliminary, Resulted No Growth after 72 hours. All specime... 11/03/19 Blood Culture - Preliminary, Resulted No Growth after 72 hours. All specime... 11/02/19 Gastrointestinal Tract Panel (PCR) - Final, Complete 11/02/19 Blood Culture - Preliminary, Resulted No Growth after 72 hours. All specime... 11/02/19 Blood Culture - Preliminary, Resulted No Growth after 72 hours. All specime... LUIS RUIZ MD Nov 07, 2019 13:06
[2019-11-07] MEDS ORDERED: SCOPOLAMINE 1MG TRANSDERMAL PATCH TOP PRN (14:30)
[2019-11-07] MEDS ORDERED: LORazepam 2 MG/ML VIAL (J2060) IV PRN ×2 (14:30→15:15)
[2019-11-07] MEDS ORDERED: MORPHINE 2 MG/ML 1ML VIAL (J2270) IV PRN (14:30)
[2019-11-07] MEDS ORDERED: LORazepam 2 MG/ML VIAL (J2060) As Ordered ONE (14:59)
--- NOTE | 2019-11-07 18:22 | IPNPDOC ---
Date Seen The patient was seen on 11/07/19. Progress Note Patient seen and examined last night and this morning. Concern from resident overnight but the patient had an acute cold extremity. My concerns were whether or not the patient had any acute intracranial issues that were preclude us from proceeding with anticoagulation, and concern for whether or not the patient's severely deteriorated pulmonary status would preclude us from doing any type of operative intervention. Therefore, in addition to a CTA of the abdomen and pelvis with runoff of the lower extremities, he also asked her to get a head CT and a chest CT. Both were reviewed along with the lower extremities. No intracranial issues were noted on head CT, but the chest CT showed severe aspiration pneumonia and small segment PEs. 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 There are bilateral iliac hissing stent in the left sided stent is chronically occluded and the right stent was patent. Additionally, the patient had common femoral occlusions, with reconstitution of the profundus through collaterals from the right hypogastric. He also had bilateral SFA occlusions with some reconstitution through collaterals from the profundus to the popliteal arteries and limited tibial runoff. All of this appeared chronic. He has some toe discoloration and some early stage pressure changes of the heels, likely due to his immobility during multiple recent episodes of alcohol withdrawal and metabolic encephalopathy and malnutrition with peripheral vascular disease. After reviewing imaging, I felt the patient was not a great candidate for extensive open surgical revascularization while in acute alcohol withdrawal and with extensive acute on chronic pulmonary insufficiency. I discussed with the nurses and the medicine team that at this point if heroic revascularization was desired while he was in this clinical state, I would recommend transfer to [place] for higher level of care. However, in my opinion, with all of these chronic changes, it would be best to continue supportive care for the patient's mental and respiratory issues and deal with the vascular chronic issues at a later date once he is status is improved and he was more stable. There was discussion that the family was leaning towards comfort measures only, and therefore we did not p ursue the issue further for today. When I went back upstairs to discuss events of the day and options, I found that the patient's family had decided to make him comfort measures only and the patient had . We appreciate the opportunity to participate in care of this patient. VS, I&O, 24H, Flacobone Vital Signs/I&O Vital Signs Date Time Temp Pulse Resp B/P (MAP) Pulse Ox O2 Delivery O2 Flow Rate FiO2 11/07/19 15:38 50 11/07/19 14:00 71 30 124/58 (80) 89 NIPPV (BIPAP/CPAP) 11/07/19 12:00 98.2 11/04/19 16:00 15.0 I&O- Last 24 Hours up to 6 AM 11/07/19 05:59 Intake Total 250 ml Output Total 1060 ml Balance -810 ml Laboratory Data 24H LABS Laboratory Tests 2 11/06/19 20:48: Blood Gas Bicarbonate Standard 25.1, Arterial Blood pH 7.497H, Arterial Blood Partial Pressure CO2 30.9L, Arterial Blood Partial Pressure O2 66.5L, Arterial Blood Total CO2 24.3, Arterial Blood HCO3 23.4, Arterial Blood Base Excess 0.7, Arterial Blood Oxygen Saturation 93.1L 11/06/19 23:47: Lactic Acid Level 2.2*H 11/07/19 00:03: Bedside Glucose (Misc Panel) 104 11/07/19 01:50: Immature Granulocyte % (Auto) 0.6, Neutrophils (%) (Auto) 73.6H, Lymphocytes (%) (Auto) 18.8L, Monocytes (%) (Auto) 5.6H, Eosinophils (%) (Auto) 1.1, Basophils (%) (Auto) 0.3, Neutrophils # (Auto) 6.6, Lymphocytes # (Auto) 1.7, Monocytes # (Auto) 0.5, Eosinophils # (Auto) 0.1, Basophils # (Auto) 0.0, Nucleated Red Blood Cells % (auto) 0.0, Prothrombin Time 21.5H, Prothromb Time International Ratio 1.89, Anion Gap 6L, Glomerular Filtration Rate > 60.0, Calcium Level 7.5L, Total Bilirubin 1.4H, Aspartate Amino Transf (AST/SGOT) 100H, Alanine Aminotransferase (ALT/SGPT) 49, Alkaline Phosphatase 106, Total Protein 6.4, Albumin 1.6L, Albumin/Globulin Ratio 0.33L 11/07/19 04:48: Anion Gap 6L, Glomerular Filtration Rate > 60.0, Lactic Acid Followup at 4 Hours 2.2*H, Calcium Level 7.4L, Total Bilirubin 1.2H, Aspartate Amino Transf (AST/SGOT) 99H, Alanine Aminotransferase (ALT/SGPT) 51, Alkaline Phosphatase 98, Total Protein 6.6, Albumin 1.4L, Albumin/Globulin Ratio 0.27L 11/07/19 06:00: Bedside Glucose (Misc Panel) 113 11/07/19 06:08: Blood Gas Bicarbonate Standard 24.6, Arterial Blood pH 7.509H, Arterial Blood Partial Pressure CO2 28.8L, Arterial Blood Partial Pressure O2 113.2H, Arterial Blood Total CO2 23.3, Arterial Blood HCO3 22.4, Arterial Blood Base Excess 0.1, Arterial Blood Oxygen Saturation 98.2 11/07/19 09:11: Immature Granulocyte % (Auto) 0.8, Neutrophils (%) (Auto) 73.6H, Lymphocytes (%) (Auto) 18.7L, Monocytes (%) (Auto) 5.1H, Eosinophils (%) (Auto) 1.5, Basophils (%) (Auto) 0.3, Neutrophils # (Auto) 5.5, Lymphocytes # (Auto) 1.4L, Monocytes # (Auto) 0.4, Eosinophils # (Auto) 0.1, Basophils # (Auto) 0.0, Nucleated Red Blood Cells % (auto) 0.0, Activated Partial Thromboplast Time 151.0*H 11/07/19 12:12: Bedside Glucose (Misc Panel) 101 CBC/BMP Laboratory Tests 11/07/19 01:50 11/07/19 04:48 11/07/19 09:11 Microbiology Microbiology 11/03/19 Blood Culture - Preliminary, Resulted No Growth after 72 hours. All specime... 11/03/19 Blood Culture - Preliminary, Resulted No Growth after 72 hours. All specime... 11/02/19 Gastrointestinal Tract Panel (PCR) - Final, Complete 11/02/19 Blood Culture - Final, Complete NO GROWTH AFTER 5 DAYS 11/02/19 Blood Culture - Final, Complete NO GROWTH AFTER 5 DAYS TESFAYE GAONA MD Nov 07, 2019 18:22
--- NOTE | 2019-11-08 12:50 | DS.PDOC ---
Discharge Summary General Date of Admission Nov 02, 2019 at 16:47 Date of Discharge 11/07/19 Discharge Summary PROCEDURES PERFORMED DURING STAY: [None]. ADMITTING DIAGNOSES: 1. acute respiratory failure with hypoxemia 2. L common femoral occlusion/bilateral PE 3. acute metabolic encephalopathy 4. DM2 DISCHARGE DIAGNOSES: 1. acute respiratory failure with hypoxemia 2. L common femoral occlusion/bilateral PE 3. acute metabolic encephalopathy 4. DM2 COMPLICATIONS/CHIEF COMPLAINT: Diarrhea; Multifocal Pneumonia. HISTORY OF PRESENT ILLNESS: please refer to HPI from dated 11/02/19. HOSPITAL COURSE: Patient was admitted to the hospital and treated for the following conditions: 1. acute respiratory failure with hypoxemia - secondary to worsening PNA/COPD. - patient transferred to ICU for increasing hypoxia/tachypnea on 11/04. - patient continues on BIPAP, unable to wean off. - found to have L common femoral occlusion/bilateral PE. - extensive discussion with daughter on 11/07 (surrogate decision maker) regarding patients condition, explained high risk of surgery. States she wants to proceed with comfort measures only. Patient at 1552 on 11/07. DISCHARGE MEDICATIONS: Please see below. ALLERGIES: Please see below. PHYSICAL EXAMINATION ON DISCHARGE: n/a LABORATORY DATA: Please see below. DISPOSITION: . DISCHARGE CONDITION: . TIME SPENT ON DISCHARGE: Greater than [30] minutes. Vital Signs/I&Os Vital Signs Date Time Temp Pulse Resp B/P (MAP) Pulse Ox O2 Delivery O2 Flow Rate FiO2 11/07/19 15:38 50 11/07/19 14:00 71 30 124/58 (80) 89 NIPPV (BIPAP/CPAP) 11/07/19 12:00 98.2 11/04/19 16:00 15.0 I&O- Last 24 Hours up to 6 AM 11/08/19 06:00 Intake Total 50 ml Output Total 255 ml Balance -205 ml Microbiology Microbiology 11/03/19 Blood Culture - Final, Complete NO GROWTH AFTER 5 DAYS 11/03/19 Blood Culture - Final, Complete NO GROWTH AFTER 5 DAYS 11/02/19 Gastrointestinal Tract Panel (PCR) - Final, Complete 11/02/19 Blood Culture - Final, Complete NO GROWTH AFTER 5 DAYS 11/02/19 Blood Culture - Final, Complete NO GROWTH AFTER 5 DAYS Discharge Medications Scheduled Aspirin (Aspirin EC) 81 Mg Tab, 81 MG PO DAILY, (Reported) Atorvastatin Calcium (Atorvastatin Calcium) 80 Mg Tab, 80 MG PO QHS, (Reported) Cetirizine HCl (Cetirizine HCl) 10 Mg Tab, 10 MG PO DAILY, (Reported) Folic Acid (Folic Acid) 1 Mg Tablet, 1 MG PO DAILY, (Reported) Lisinopril (Lisinopril) 20 Mg Tab, 20 MG PO DAILY, (Reported) Magnesium Oxide (Magnesium) 400 Mg Capsule, 400 MG PO DAILY, (Reported) Meloxicam (Meloxicam) 7.5 Mg Tablet, 7.5 MG PO DAILY, (Reported) Montelukast Sodium (Singulair) 10 Mg Tab, 10 MG PO DAILY, (Reported) Pregabalin (Lyrica) 225 Mg Capsule, 225 MG PO BID, (Reported) Zonisamide (Zonisamide) 25 Mg Cap, 50 MG PO QHS, (Reported) Scheduled PRN Albuterol Sulfate (Ventolin Hfa) 18 Gm Hfa.aer.ad, 2 PUFF PO Q4H PRN for wheezing, (Reported) Hydrocodone/Acetaminophen (Hydrocodone-Acetamin 10-325 mg) 1 Each Tablet, 1 TAB PO QID PRN for pain, (Reported) Meclizine HCl (Meclizine HCl) 12.5 Mg Tab, 12.5 MG PO BID PRN for DIZZINESS, (Reported) Allergies Coded Allergies: No Known Allergies (Unverified , 07/04/19) LUIS RUIZ MD Nov 08, 2019 12:50
== END 2019-11-07 17:58 | disposition expired | DRG 137 ==
LOC: M ED 09:13 → EDBD 09:13 → M ED INP 16:47 → ENRESERVTM 17:18 → ENRESERVDT 17:18 → M MS5PR 18:40 → M PCU 11-03 02:01 → M ICU 11-04 08:24
PROVIDERS: ADMIT Internal Medicine; ATTEND Internal Medicine
DX: J69.0 Pneumonitis due to inhalation of food and vomit (principal); J96.01 Acute respiratory failure with hypoxia; I26.99 Other pulmonary embolism without acute cor pulmonale; G93.41 Metabolic encephalopathy; E46 Unspecified protein-calorie malnutrition; D69.6 Thrombocytopenia, unspecified; I74.09 Other arterial embolism and thrombosis of abdominal aorta; J81.0 Acute pulmonary edema; E11.51 Type 2 diabetes mellitus with diabetic peripheral angiopathy without gangrene; R19.7 Diarrhea, unspecified; E78.5 Hyperlipidemia, unspecified; I10 Essential (primary) hypertension; I77.1 Stricture of artery; J44.9 Chronic obstructive pulmonary disease, unspecified; F43.10 Post-traumatic stress disorder, unspecified; E87.6 Hypokalemia; F32.9 Major depressive disorder, single episode, unspecified; F41.9 Anxiety disorder, unspecified; F10.239 Alcohol dependence with withdrawal, unspecified; R01.1 Cardiac murmur, unspecified; Z51.5 Encounter for palliative care; Z66 Do not resuscitate; R20.0 Anesthesia of skin; Z87.891 Personal history of nicotine dependence; Z79.82 Long term (current) use of aspirin; Z79.1 Long term (current) use of non-steroidal anti-inflammatories (NSAID); Z79.899 Other long term (current) drug therapy